=== PATIENT | female | born 1950 | race Caucasian/White ===

== ENCOUNTER 2016-12-17 17:20 | Emergency (ER) | payer MEDICARE ==
[2016-12-17 17:31] VITALS: BP 139/78
[2016-12-17] MEDS ORDERED: Acetaminophen/HYDROcodone 325-5 MG Tab PO ONE (18:09)
--- NOTE | 2016-12-17 18:16 | EDM.PDOC ---
ED HPI GENERAL MEDICAL PROBLEM - General Chief Complaint: Lower Extremity Injury/Pain Stated Complaint: HIP PAIN Time Seen by Provider: 12/17/16 17:50 Source of Information: Reports: Patient History Limitations: Reports: No Limitations - History of Present Illness INITIAL COMMENTS - FREE TEXT/NARRATIVE: Patient presents today with complaints of left hip pain status post fall forward [employer] today. Martha reports she fell forward after slipping on some water on the floor. She denies any other injury or pain today. Onset: Today Duration: Hour(s): Location: Reports: Other (left hip/groin) Quality: Reports: Sharp, Stabbing Severity: Moderate Improves with: Reports: None Worsens with: Reports: Movement - Related Data Allergies Allergy/AdvReac Type Severity Reaction Status Date / Time codeine Allergy Intermediate Rash Verified 12/17/16 17:29 iodine Allergy Intermediate Rash Verified 12/17/16 17:29 Iodinated Contrast- Oral and Allergy Hives Verified 12/17/16 17:29 IV Dye [Iodinated Contrast Media - IV Dye] isosorbide [Isosorbide] AdvReac Cough Verified 12/17/16 17:29 midazolam HCl [From Versed] AdvReac Confusion Verified 12/17/16 17:29 NSAIDS (Non-Steroidal AdvReac Renal Verified 12/17/16 17:29 Anti-Inflamma Failure Home Meds: Home Meds Albuterol Sulfate [Proair Hfa] 2 puff IH QID PRN 04/25/13 [History] Aspirin [Adult Low Dose Aspirin EC] 81 mg PO DAILY 04/25/13 [History] Cholecalciferol (Vitamin D3) [Vitamin D3] 1,000 units PO BID 04/25/13 [History] Gabapentin [Neurontin] 300 mg PO TID 04/25/13 [History] Loratadine [Allergy] 10 mg PO ACBRK PRN 04/25/13 [History] Montelukast [Singulair] 10 mg PO BEDTIME 04/25/13 [History] Polyethylene Glycol 3350 [MiraLAX] 17 gm PO DAILY PRN 04/25/13 [History] metFORMIN [Glucophage] 1,000 mg PO PCBREAKFAST 04/25/13 [History] traZODone 50 mg PO BEDTIME 04/25/13 [History] Citalopram Hydrobromide [Celexa] 40 mg PO BEDTIME 04/08/14 [History] Verapamil [Calan] 20 mg PO TID 10/08/13 [History] Ipratropium/Albuterol Sulfate [Combivent Respimat Inhal [place]] 1 puff IH QID [History] Oxybutynin Chloride 5 mg PO TID 08/18/14 [History] Gabapentin [Neurontin] 600 mg PO BEDTIME 02/02/15 [History] Hydrocodone/Acetaminophen [Hydrocodon-Acetaminophen 5-325] 1 tab PO Q6H PRN 11/12 [History] Pantoprazole [Protonix] 40 mg PO BID 04/22/15 [History] buPROPion HCl [Wellbutrin Xl] 150 mg PO BID 11/09/15 [History] Acetaminophen [Tylenol Arthritis] 650 mg PO Q8H PRN 05/10/16 [History] atorvaSTATin [Lipitor] 10 mg PO BEDTIME 05/10/16 [History] Past Medical History HEENT History: Reports: Cataract, Hard of Hearing, Impaired Vision, Macular Degeneration Other HEENT History: wears glasses Cardiovascular History: Reports: Arrhythmia, High Cholesterol, Hypertension, SOB on Exertion Respiratory History: Reports: Asthma, COPD, SOB Gastrointestinal History: Reports: GERD, Hiatal Hernia Other Gastrointestinal History: Barretts esoph Genitourinary History: Reports: Renal Disease, Urinary Incontinence Other Genitourinary History: stage 3 kidney 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: Musculoskeletal History: Reports: Arthritis, Fracture, Neck Pain, Chronic, Osteoarthritis Neurological History: Reports: Headaches, Chronic Other Neuro History: blood clot in brain 1 year ago resolved on it's own Psychiatric History: Reports: Anxiety, Mood Swings Endocrine/Metabolic History: Reports: Diabetes, Type II, Obesity/BMI 30+, Vitamin D Deficiency Other Endocrine/Metabolic History: BS this am 135 Hematologic History: Reports: Anemia, Blood Transfusion(s) Dermatologic History: Reports: Eczema - Infectious Disease History Infectious Disease History: Reports: Chicken Pox - Past Surgical History Head Surgeries/Procedures: Reports: None HEENT Surgical History: Reports: Cataract Surgery, Eye Surgery Respiratory Surgical History: Reports: None GI Surgical History: Reports: Colonoscopy, EGD, Esophageal Dilatation, Hernia Repair/Other, Doc Fundoplication Female Surgical History: Reports: Section Musculoskeletal Surgical History: Reports: Shoulder Surgery Social & Family History - Family History Family Medical History: Noncontributory - Tobacco Use Smoking Status *Q: Never Smoker Second Hand Smoke Exposure: Yes - Caffeine Use Caffeine Use: Reports: Soda, Tea - Alcohol Use Days Per Week of Alcohol Use: 0 - Recreational Drug Use Recreational Drug Use: No Review of Systems - Review of Systems Review Of Systems: See Below Constitutional: Reports: No Symptoms Eyes: Reports: No Symptoms Ears: Reports: No Symptoms Nose: Reports: No Symptoms Respiratory: Reports: No Symptoms Cardiovascular: Reports: No Symptoms GI/Abdominal: Reports: No Symptoms Genitourinary: Reports: No Symptoms Musculoskeletal: Reports: Joint Pain, Other (left hip pain) Skin: Denies: Cyanosis, Bruising, Rash, Erythema, Wound Neurological: Denies: Confusion, Dizziness, Headache, Syncope, Weakness Psychiatric: Reports: No Symptoms ED EXAM, GENERAL - Physical Exam Exam: See Below Exam Limited By: No Limitations General Appearance: Alert, WD/WN, No Apparent Distress Eye Exam: Bilateral Eye: Normal Inspection, PERRL Ears: Normal External Exam, Normal Canal, Hearing Grossly Normal, Normal TMs Ear Exam: Bilateral Ear: Auricle Normal, Canal Normal, TM normal Nose: Normal Inspection, Normal Mucosa, No Blood Throat/Mouth: Normal Inspection, Normal Lips, Normal Teeth, Normal Gums, Normal Voice, No Airway Compromise Head: Atraumatic, Normocephalic Neck: Normal Inspection, Supple, Non-Tender, Full Range of Motion Respiratory/Chest: No Respiratory Distress, No Accessory Muscle Use, Chest Non- Tender, Decreased Breath Sounds. No: Respiratory Distress, Wheezing Cardiovascular: Normal Peripheral Pulses, Regular Rate, Rhythm, No Edema, No Gallop, No Murmur, No Rub Peripheral Pulses: 2+: Radial (L), Radial (R), Dorsalis Pedis (L), Dorsalis Pedis (R) GI/Abdominal: Normal Bowel Sounds, Soft, Non-Tender, No Organomegaly, No Distention, No Abnormal Bruit, No Mass Back Exam: Normal Inspection, Full Range of Motion. No: CVA Tenderness (R), CVA Tenderness (L) Extremities: No Pedal Edema, Normal Capillary Refill, Other (left hip pain with any movement or rotation. No shortening of left leg. ) Neurological: Alert, Oriented, CN II-XII Intact, Normal Cognition, Normal Gait, No Motor/Sensory Deficits Psychiatric: Normal Affect, Normal Mood Skin Exam: Warm, Dry, Intact, Normal Color, No Rash Lymphatic: No Adenopathy Course - Vital Signs Last Recorded V/S: Last Vital Signs Temp 37.1 C 12/17/16 17:38 Pulse 78 12/17/16 17:38 Resp 20 12/17/16 17:38 BP 139/78 12/17/16 17:38 Pulse Ox 94 L 12/17/16 17:38 - Orders/Labs/Meds Orders: Active Orders 24 hr Category Date Time Status Hip Min 2V or 3V w Pelvis Lt [CR] Stat Exams 12/17/16 18:15 Taken Hip wo Cont Lt [CT] Stat Exams 12/17/16 18:55 Taken Meds: Medications Discontinued Medications Generic Name Dose Route Start Last Admin Trade Name Marisela PRN Reason Stop Dose Admin Hydrocodone Bitart/Acetaminophen 0.5 tab 12/17/16 18:09 12/17/16 18:46 [place] 325-5 Mg PO 12/17/16 18:10 0.5 tab ONETIME ONE Administration - Radiology Interpretation Free Text/Narrative:: No acute findings noted to left hip/pelvis x-ray. Pain continues to be disproportionate to left hip. Attempts to assist patient with bedpan, severe pain with movement. Patient and her family members in agreement with plan. CT Results Date: 12/17/16 CT Results Time: 19:48 (No acute pelvic or left hip fracture. ) - Re-Assessments/Exams Free Text/Narrative Re-Assessment/Exam: 12/17/16 19:48 Patient and family members notified of CT results. Dr. Foster notified of results. Patient reports pain has lessened after use of hydrocodone. We will try to ambulate her with assistance. Free Text/Narrative Re-Assessment/Exam: 12/17/16 19:58 Patient up to ambulate with use of front wheel walker, tolerated well with slight pain. Able to ambulate >100ft. Patient will be discharged to home. Departure - Departure Time of Disposition: 19:59 Disposition: Home, Self-Care 01 Condition: Fair Clinical Impression: Sprain of hip, Contusion of hip - Discharge Information Instructions: Hip Pain Referrals: Kolby Parra MD [Primary Care Provider] - Forms: ED Department Discharge Additional Instructions: You have suffered a sprain/contusion of your left hip. Keep yourself hydrated, rest, use ice/heat as you tolerated to the left hip area. Use hydrocodone 5/325mg, 1/2 pill every 4 to 6 hours as needed for pain. Follow up with your primary care provider in 7 to 14 days for recheck and pain control. You would benefit from use of a front wheel walker. I have provided a prescription for you. - Problem List Review Problem List Initiated/Reviewed/Updated: Yes - My Orders Last 24 Hours: My Active Orders 12/17/16 18:15 Hip Min 2V or 3V w Pelvis Lt [CR] Stat 12/17/16 18:55 Hip wo Cont Lt [CT] Stat - Assessment/Plan Last 24 Hours: My Active Orders 12/17/16 18:15 Hip Min 2V or 3V w Pelvis Lt [CR] Stat 12/17/16 18:55 Hip wo Cont Lt [CT] Stat Assessment:: Left hip sprain, contusion Unsteady gait Plan: Patient will be discharged to home. She is advised to stay hydrated, rest, use ice/heat as tolerated to the left hip area. Use hydrocodone 5/325mg, 1/2 pill every 4 to 6 hours as needed for pain. Follow up with primary care provider in 7 to 14 days for recheck and pain control. She would benefit from use of a front wheel walker (S73.101A, S70.02XA, R 26.81) . Prescription provided.
--- NOTE | 2016-12-18 08:15 | CR ---
Hip Min 2V or 3V w Pelvis Lt HISTORY: left hip pain status post fall forward COMPARISON: 11/17/2015 FINDINGS: No acute fracture or dislocation about the left hip or pelvis is identified. Bony architecture and joint spaces are preserved. No hypertrophic changes are seen. Soft tissues are unremarkable. IMPRESSION: No acute left hip or pelvic abnormality is identified.
== END 2016-12-17 20:30 | disposition home or self-care (01) ==
LOC: JP.ED 17:20
DX: S73.102A Unspecified sprain of left hip, initial encounter (principal); I12.9 Hypertensive chronic kidney disease with stage 1 through stage 4 chronic kidney disease, or unspecified chronic kidney disease; N18.3 Chronic kidney disease, stage 3 (moderate); E78.00 Pure hypercholesterolemia, unspecified; J44.9 Chronic obstructive pulmonary disease, unspecified; E11.9 Type 2 diabetes mellitus without complications; E66.9 Obesity, unspecified; M19.90 Unspecified osteoarthritis, unspecified site; Z79.82 Long term (current) use of aspirin; Z79.899 Other long term (current) drug therapy; Z88.5 Allergy status to narcotic agent; Z88.8 Allergy status to other drugs, medicaments and biological substances; Z98.49 Cataract extraction status, unspecified eye; Z98.890 Other specified postprocedural states; W19.XXXA Unspecified fall, initial encounter
CPT/HCPCS: 73502; 73700; 99284; A9270; 99283

== ENCOUNTER 2017-12-30 06:36 | Day surgery (SDC) | payer MEDICARE ==
[~2017-12-30 06:36] MED LIST: Dextrose 5%-Lactated Ringers 1,000 ML IV SCH; Glycopyrrolate 0.2 MG/ML 2 ML SDV IVPUSH ONE
[2017-12-30] MEDS ORDERED: Propofol 200 MG/20 ML SDV ONE (08:56)
[2017-12-30 10:24] VITALS: BP 132/81
--- NOTE | 2018-01-08 11:00 | OR ---
DATE OF PROCEDURE: 12/30/2017 PREOPERATIVE DIAGNOSIS: History of Neves's esophagus with high-grade dysplasia, status post radiofrequency ablation treatment. POSTOPERATIVE DIAGNOSES: 1. History of Neves's esophagus with high-grade dysplasia, status post radiofrequency ablation treatment. 2. Antral gastritis. OPERATIVE PROCEDURES: Upper GI endoscopy with: 1. Biopsies of esophagogastric junction for histologic evaluation. 2. Biopsies of antrum for CLOtest. ANESTHESIA: IV sedation. INDICATIONS FOR PROCEDURE: This is a 67-year-old status post a series of radiofrequency ablation treatments for Neves's esophagus with high-grade dysplasia. For followup, she is to undergo surveillance endoscopies to rule out any recurrent or persistent Neves's esophagus. Potential risks of the procedure including bleeding and perforation were discussed, and the patient wishes that to proceed. DETAILS OF PROCEDURE: The patient was taken to the operating room and placed in a left lateral decubitus position. IV sedation was administered, after which the upper GI endoscope was passed orally through the length of the esophagus and into the stomach with retroflexion view of the fundus, thereafter through the pyloric channel and into junction of the third and fourth portions of the duodenum. Findings included normal hypopharynx, larynx, upper esophageal junction, and esophageal body. At the EG junction, the patient was noted to have a small hiatal hernia. There was some upward extension of the gastroesophageal junction mucosal line consistent with her history of Neves's esophagus. There was no significant inflammation and no erosions or stricturing or plaque formation, i.e. no signs of progressive neoplastic disease. Within the stomach, there was some mild patchy redness in the antrum. Otherwise, the pyloric channel and visualized portions of the duodenum were unremarkable. At this point, biopsies were obtained from the antrum and sent for CLOtest for H. pylori. Multiple biopsies were obtained from the area of the esophagogastric junction, focusing on the areas of columnar mucosa. Minimal bleeding from the biopsy sites was seen, and the procedure was then concluded. Assuming that today's biopsies did not show any progression of Neves's esophagus, we would recommend a repeat upper endoscopy in one year. We will continue the present medical management with Protonix 40 mg a day. Thanh Garcia MD /[id number]
== END 2017-12-30 11:05 | disposition home or self-care (01) ==
LOC: JP.SDS 06:36
PROVIDERS: ATTEND Surgery
DX: Z09 Encounter for follow-up examination after completed treatment for conditions other than malignant neoplasm (principal); K20.9 Esophagitis, unspecified; K29.70 Gastritis, unspecified, without bleeding; K44.9 Diaphragmatic hernia without obstruction or gangrene; I12.9 Hypertensive chronic kidney disease with stage 1 through stage 4 chronic kidney disease, or unspecified chronic kidney disease; N18.9 Chronic kidney disease, unspecified; J44.9 Chronic obstructive pulmonary disease, unspecified; Z87.19 Personal history of other diseases of the digestive system; Z88.8 Allergy status to other drugs, medicaments and biological substances
CPT/HCPCS: 43239; 87081; 88305; J2704; J7042; J3490

== ENCOUNTER 2019-01-12 09:20 | Observation (INO) | payer MEDICARE ==
[2019-01-12] MEDS ORDERED: Acetaminophen 325 MG Tab PO ONE (09:45)
--- NOTE | 2019-01-12 09:51 | EDM.PDOC ---
ED HPI GENERAL MEDICAL PROBLEM - General Chief Complaint: General Stated Complaint: MEDICAL VIA [facility] Time Seen by Provider: 01/12/19 09:35 Source of Information: Reports: Patient, EMS, Family, Old Records History Limitations: Reports: No Limitations - History of Present Illness INITIAL COMMENTS - FREE TEXT/NARRATIVE: 68 yo female presents to the ER via EMS after a fall at home. There were no significant injuries. States she was light-headed before falling. Has been falling a lot lately and her primary got a walker to help reduce her risk of falling. Lives alone. No recent diarrhea, vomiting, or bleeding. Has chronic lung dz, but does not think her breathing is any worse than normal. Does have more urinary incontinence than usual lately. Was not using her walker when she fell today. Onset: Gradual Duration: Week(s):, Getting Worse Location: Reports: Generalized Quality: Reports: Other (no pain) Severity: Moderate Improves with: Reports: Other (using her walker helps with her falls) Worsens with: Reports: Other (non-compliance with walker use, medical illness) Context: Reports: Other (see HPI) Associated Symptoms: Reports: Shortness of Breath (chronic, stable), Weakness ( generalized). 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: Other (see below) (none) - Related Data Allergies Allergy/AdvReac Type Severity Reaction Status Date / Time codeine Allergy Intermediate Rash Verified 06/09/18 19:25 iodine Allergy Intermediate Rash Verified 06/09/18 19:25 Iodinated Contrast- Oral and Allergy Hives Verified 06/09/18 19:25 IV Dye [Iodinated Contrast Media - IV Dye] isosorbide [Isosorbide] AdvReac Cough Verified 06/09/18 19:25 midazolam HCl [From Versed] AdvReac Confusion Verified 06/09/18 19:25 NSAIDS (Non-Steroidal AdvReac Renal Verified 06/09/18 19:25 Anti-Inflamma Failure Home Meds: Home Meds Albuterol Sulfate [Proair Hfa] 2 puff IH QID PRN 04/25/13 [History] Aspirin [Adult Low Dose Aspirin EC] 81 mg PO DAILY 04/25/13 [History] Cholecalciferol (Vitamin D3) [Vitamin D3] 1,000 units PO BID 04/25/13 [History] Gabapentin [Neurontin] 300 mg PO TID 04/25/13 [History] Loratadine [Allergy] 10 mg PO ACBRK PRN 04/25/13 [History] Montelukast [Singulair] 10 mg PO BEDTIME 04/25/13 [History] Polyethylene Glycol 3350 [MiraLAX] 17 gm PO DAILY PRN 04/25/13 [History] metFORMIN [Glucophage] 1,000 mg PO PCBREAKFAST 04/25/13 [History] traZODone 50 mg PO BEDTIME 04/25/13 [History] Verapamil [Calan] 20 mg PO TID 10/08/13 [History] Ipratropium/Albuterol Sulfate [Combivent Respimat 20-100 Mcg] 1 puff IH DAILY [History] Oxybutynin Chloride 5 mg PO TID 08/18/14 [History] Gabapentin [Neurontin] 600 mg PO BEDTIME 02/02/15 [History] Pantoprazole [Protonix] 40 mg PO BID 04/22/15 [History] Acetaminophen [Tylenol Arthritis] 650 mg PO Q8H PRN 05/10/16 [History] Triamcinolone Acetonide [Triamcinolone Acetonide 0.1% Crm] 1 applic TOP TID [History] Acetaminophen/HYDROcodone [[place] 325-5 MG] 0.5 tab PO Q4H PRN 01/12/19 [History] Citalopram Hydrobromide [Celexa] 40 mg PO DAILY 01/12/19 [History] atorvaSTATin [Lipitor] 10 mg PO BEDTIME 01/12/19 [History] buPROPion HCl [Wellbutrin SR] 150 mg PO BID 01/12/19 [History] Past Medical History HEENT History: Reports: Cataract, Hard of Hearing, Impaired Vision, Macular Degeneration Other HEENT History: wears glasses Cardiovascular History: Reports: Arrhythmia, High Cholesterol, Hypertension, SOB on Exertion Respiratory History: Reports: Asthma, COPD, SOB Gastrointestinal History: Reports: GERD, Hiatal Hernia Other Gastrointestinal History: Barretts esoph Genitourinary History: Reports: Renal Disease, Urinary Incontinence Other Genitourinary History: stage 3 kidney 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: Musculoskeletal History: Reports: Arthritis, Fracture, Neck Pain, Chronic, Osteoarthritis Neurological History: Reports: Headaches, Chronic Other Neuro History: blood clot in brain (2016) resolved on it's own Psychiatric History: Reports: Anxiety, Mood Swings Endocrine/Metabolic History: Reports: Diabetes, Type II, Obesity/BMI 30+, Vitamin D Deficiency Other Endocrine/Metabolic History: BS this am 100 Hematologic History: Reports: Anemia, Blood Transfusion(s) Dermatologic History: Reports: Eczema - Infectious Disease History Infectious Disease History: Reports: Chicken Pox - Past Surgical History Head Surgeries/Procedures: Reports: None HEENT Surgical History: Reports: Cataract Surgery, Eye Surgery Cardiovascular Surgical History: Reports: None Respiratory Surgical History: Reports: None GI Surgical History: Reports: Colonoscopy, EGD, Esophageal Dilatation, Hernia Repair/Other, Doc Fundoplication Female Surgical History: Reports: Section Endocrine Surgical History: Reports: None Neurological Surgical History: Reports: None Musculoskeletal Surgical History: Reports: Shoulder Surgery Dermatological Surgical History: Reports: None Social & Family History - Family History Family Medical History: Noncontributory - Tobacco Use Smoking Status *Q: Never Smoker - Caffeine Use Caffeine Use: Reports: None - Recreational Drug Use Recreational Drug Use: No ED ROS GENERAL - Review of Systems Review Of Systems: See Below Constitutional: Reports: Weakness HEENT: Reports: Other (dry mouth) Respiratory: Reports: Shortness of Breath (chronic, stable) Cardiovascular: Reports: Lightheadedness (worse today) Endocrine: Reports: No Symptoms GI/Abdominal: Reports: No Symptoms : Reports: Incontinence Musculoskeletal: Reports: No Symptoms Skin: Reports: No Symptoms Neurological: Reports: No Symptoms Psychiatric: Reports: No Symptoms ED EXAM, GENERAL - Physical Exam Exam: See Below Exam Limited By: No Limitations General Appearance: Alert, WD/WN, No Apparent Distress, Other (Looks older than her stated age.) Eye Exam: Bilateral Eye: Normal Inspection Ears: Normal External Exam, Normal Canal, Hearing Grossly Normal, Normal TMs Ear Exam: Bilateral Ear: Auricle Normal, Canal Normal, TM normal Nose: Normal Inspection, No Blood Throat/Mouth: Normal Lips, Normal Oropharynx, Normal Voice, No Airway Compromise , Other (dry oral mucosa, edentulous). No: Normal Teeth Head: Atraumatic, Normocephalic Neck: Normal Inspection, Non-Tender Respiratory/Chest: No Respiratory Distress, Lungs Clear, No Accessory Muscle Use , Decreased Breath Sounds Cardiovascular: Regular Rate, Rhythm, No Edema GI/Abdominal: Normal Bowel Sounds, Soft, Non-Tender, No Distention Back Exam: Normal Inspection. No: CVA Tenderness (R), CVA Tenderness (L) Extremities: Normal Inspection, Normal Range of Motion, Non-Tender, No Pedal Edema Neurological: Alert, Oriented, CN II-XII Intact, Normal Cognition, No Motor/ Sensory Deficits Psychiatric: Normal Affect, Normal Mood Skin Exam: Warm, Dry, Intact, Normal Color, No Rash Course - Vital Signs Text/Narrative:: Dr. Cabrera called @ 1232h Last Recorded V/S: Last Vital Signs Temp 38.0 C 01/12/19 10:02 Pulse 98 01/12/19 09:25 Resp 20 01/12/19 09:25 BP 137/60 01/12/19 09:25 Pulse Ox 89 L 01/12/19 09:25 - Orders/Labs/Meds Orders: Active Orders 24 hr Category Date Time Status Azithromycin [Zithromax] Med 01/12/19 12:33 Once 500 mg PO ONETIME ONE Sodium Chloride 0.9% [Normal Saline] 1,000 ml Med 01/12/19 12:00 Active IV ASDIRECTED cefTRIAXone [Rocephin] 1 gm Med 01/12/19 12:33 Ordered Sodium Chloride 0.9% [Normal Saline] 50 ml IV ONETIME Medication Orders Sodium Chloride (Normal Saline) 1,000 mls @ 100 mls/hr IV ASDIRECTED KARINE Last Admin: 01/12/19 11:58 Dose: 100 mls/hr Labs: Laboratory Tests 01/12/19 01/12/19 01/12/19 Range/Units 09:55 09:55 10:28 WBC 17.4 H (4.5-11.0) K/uL RBC 4.29 (3.30-5.50) M/uL Hgb 11.8 L (12.0-15.0) g/dL Hct 37.6 (36.0-48.0) % MCV 88 (80-98) fL MCH 28 (27-31) pg MCHC 31 L (32-36) % Plt Count 390 (150-400) K/uL Sodium 132 L (140-148) mmol/L Potassium 5.2 (3.6-5.2) mmol/L Chloride 96 L (100-108) mmol/L Carbon Dioxide 26 (21-32) mmol/L Anion Gap 15.2 H (5.0-14.0) mmol/L BUN 16 (7-18) mg/dL Creatinine 1.3 H (0.6-1.0) mg/dL Est Cr Clr Drug Dosing 29.75 mL/min Estimated GFR (MDRD) 41 L (>60) Glucose 174 H (74-106) mg/dL Calcium 8.7 (8.5-10.1) mg/dL C-Reactive Protein 1.97 H (0.0-0.3) mg/dL Urine Color Yellow Urine Appearance Slightly cloudy Urine pH 6.0 (4.5-8.0) Ur Specific [place] 1.015 (1.008-1.030) Urine Protein Negative (NEGATIVE) mg/dL Urine Glucose (UA) 250 H (NEGATIVE) mg/dL Urine Ketones Negative (NEGATIVE) mg/dL Urine Occult Blood Moderate (NEGATIVE) Urine Nitrite Negative (NEGATIVE) Urine Bilirubin Negative (NEGATIVE) Urine Urobilinogen Normal (NORMAL) mg/dL Ur Leukocyte Esterase Negative (NEGATIVE) Urine RBC 0-5 (0-5) Urine WBC 0-5 (0-5) Ur Epithelial Cells Few Amorphous Sediment Not seen Urine Bacteria Not seen Urine Mucus Not seen Meds: Medications Generic Name Dose Route Start Last Admin Trade Name Freq PRN Reason Stop Dose Admin Sodium Chloride 1,000 mls @ 100 mls/hr 01/12/19 12:00 01/12/19 11:58 Normal Saline IV 100 mls/hr ASDIRECTED KARINE Administration Discontinued Medications Generic Name Dose Route Start Last Admin Trade Name Freq PRN Reason Stop Dose Admin Acetaminophen 650 mg 01/12/19 09:45 01/12/19 10:02 Tylenol PO 01/12/19 09:46 650 mg NOW ONE Administration Sodium Chloride 1,000 mls @ 1,000 mls/hr 01/12/19 10:17 01/12/19 10:33 Normal Saline IV 01/12/19 11:16 1,000 mls/hr .BOLUS ONE Administration - Radiology Interpretation Free Text/Narrative:: CXR-? RML infiltrate Departure - Departure Time of Disposition: 12:50 Disposition: Refer to Observation Condition: Fair Clinical Impression: Community acquired bacterial pneumonia, Hyponatremia, Fall in elderly patient, Dizziness - Discharge Information *PRESCRIPTION DRUG MONITORING PROGRAM REVIEWED*: No *COPY OF PRESCRIPTION DRUG MONITORING REPORT IN PATIENT QAMAR: No Referrals: Kolby Parra MD [Primary Care Provider] - Forms: ED Department Discharge - My Orders Last 24 Hours: My Active Orders 01/12/19 12:00 Sodium Chloride 0.9% [Normal Saline] 1,000 ml IV ASDIRECTED 01/12/19 12:33 Azithromycin [Zithromax] 500 mg PO ONETIME ONE cefTRIAXone [Rocephin] 1 gm Sodium Chloride 0.9% [Normal Saline] 50 ml IV ONETIME - Assessment/Plan Last 24 Hours: My Active Orders 01/12/19 12:00 Sodium Chloride 0.9% [Normal Saline] 1,000 ml IV ASDIRECTED 01/12/19 12:33 Azithromycin [Zithromax] 500 mg PO ONETIME ONE cefTRIAXone [Rocephin] 1 gm Sodium Chloride 0.9% [Normal Saline] 50 ml IV ONETIME
[2019-01-12] MEDS ORDERED: Sodium Chloride 0.9% 1,000 ML IV ONE (10:17)
[2019-01-12] MEDS: Sodium Chloride 0.9% 1,000 ML IV SCH ×2 (11:58→22:49)
--- NOTE | 2019-01-12 12:05 | CR ---
Chest 2V: 01/12/2019 10:53 AM INDICATION: Fever, elevated white blood cell count COMPARISON: Chest CT performed on 02/15/2015, chest radiograph performed on 08/18/2014. TECHNIQUE: 2 views of the chest were obtained. FINDINGS: Chronic interstitial changes are present. Ill-defined opacity is present in the peripheral aspect of the right midlung, suspicious for infection. No pleural effusions. Cardiomediastinal silhouette is moderately enlarged but stable in size and contour. No acute osseous abnormality. Changes of DISH and moderate multilevel degenerative changes throughout the spine. IMPRESSION: 1. Ill-defined opacity in the right midlung region, likely representing pneumonia. Recommend follow-up to resolution to exclude an underlying neoplastic process. 2. Cardiomegaly and chronic interstitial changes.
[2019-01-12] MEDS ORDERED: cefTRIAXone 1 GM in Sodium Chloride 0.9% 50 ML IV ONE (12:33)
[2019-01-12] MEDS ORDERED: Azithromycin 250 MG Tab PO ONE (12:33)
--- NOTE | 2019-01-12 14:13 | PCM.HP ---
H&P History of Present Illness - General Date of Service: 01/12/19 Admit Problem/Dx: Admission Diagnosis/Problem Admission Diagnosis/Problem Pneumonia Source of Information: Patient, Family, Provider History Limitations: Reports: No Limitations - History of Present Illness Initial Comments - Free Text/Narative: CC: I have never fallen like that before HPI: Martha presented to the ER with weakness after two falls at home this morning. The first fall happened this morning will she was trying to get out of bed. She reports that she slowly slumped down to the floor after she was not able to reach her walker. After a period of time on the floor she was able to get to a standing position after using the walker to steady herself as she stood up. She tried to get from her bedroom to her recliner but had a second fall on the way. Both times she struck her head with the first fall resulting in a very mild bump on the left side of her head and the second fall resulting in a home mild to moderate bump on the side of her head. She does not report a headache. She did not notice any preceding dizziness or lightheadedness. She does feel little more short of breath than usual and has been coughing but has not produced any sputum. She did have a subjective fever at home this morning. Her appetite has been good. Energy had been good up until today. She does have a history of falling but has not fallen in some time. No complaints of dysuria or frequency of urination. No abdominal pain or nausea. No sick contacts, recent travel or new medications. Workup in the emergency room was suggestive of a right middle lobe pneumonia. She has a leukocytosis and C-reactive protein is moderately elevated at 2.3. Creatinine is down at 1.3. She is borderline hypoxic at this time. With her weakness she would benefit from observation admission and physical therapy as well as initiation of antibiotics. - Related Data Allergies/Adverse Reactions: Allergies Allergy/AdvReac Type Severity Reaction Status Date / Time codeine Allergy Intermediate Rash Verified 06/09/18 19:25 iodine Allergy Intermediate Rash Verified 06/09/18 19:25 Iodinated Contrast- Oral and Allergy Hives Verified 06/09/18 19:25 IV Dye [Iodinated Contrast Media - IV Dye] isosorbide [Isosorbide] AdvReac Cough Verified 06/09/18 19:25 midazolam HCl [From Versed] AdvReac Confusion Verified 06/09/18 19:25 NSAIDS (Non-Steroidal AdvReac Renal Verified 06/09/18 19:25 Anti-Inflamma Failure Home Medications: Home Meds Albuterol Sulfate [Proair Hfa] 2 puff IH QID PRN 04/25/13 [History] Aspirin [Adult Low Dose Aspirin EC] 81 mg PO DAILY 04/25/13 [History] Cholecalciferol (Vitamin D3) [Vitamin D3] 1,000 units PO BID 04/25/13 [History] Gabapentin [Neurontin] 300 mg PO TID 04/25/13 [History] Loratadine [Allergy] 10 mg PO ACBRK PRN 04/25/13 [History] Montelukast [Singulair] 10 mg PO BEDTIME 04/25/13 [History] Polyethylene Glycol 3350 [MiraLAX] 17 gm PO DAILY PRN 04/25/13 [History] metFORMIN [Glucophage] 1,000 mg PO PCBREAKFAST 04/25/13 [History] traZODone 50 mg PO BEDTIME 04/25/13 [History] Verapamil [Calan] 20 mg PO TID 10/08/13 [History] Ipratropium/Albuterol Sulfate [Combivent Respimat 20-100 Mcg] 1 puff IH DAILY [History] Oxybutynin Chloride 5 mg PO TID 08/18/14 [History] Gabapentin [Neurontin] 600 mg PO BEDTIME 02/02/15 [History] Pantoprazole [Protonix] 40 mg PO BID 04/22/15 [History] Acetaminophen [Tylenol Arthritis] 650 mg PO Q8H PRN 05/10/16 [History] Triamcinolone Acetonide [Triamcinolone Acetonide 0.1% Crm] 1 applic TOP TID [History] Acetaminophen/HYDROcodone [[place] 325-5 MG] 0.5 tab PO Q4H PRN 01/12/19 [History] Citalopram Hydrobromide [Celexa] 40 mg PO DAILY 01/12/19 [History] atorvaSTATin [Lipitor] 10 mg PO BEDTIME 01/12/19 [History] buPROPion HCl [Wellbutrin SR] 150 mg PO BID 01/12/19 [History] Past Medical History HEENT History: Reports: Cataract, Hard of Hearing, Impaired Vision, Macular Degeneration Other HEENT History: wears glasses Cardiovascular History: Reports: Arrhythmia, High Cholesterol, Hypertension, SOB on Exertion Respiratory History: Reports: Asthma, COPD, SOB Gastrointestinal History: Reports: GERD, Hiatal Hernia Other Gastrointestinal History: Barretts esoph Genitourinary History: Reports: Renal Disease, Urinary Incontinence Other Genitourinary History: stage 3 kidney [employer] History: Reports: Musculoskeletal History: Reports: Arthritis, Fracture, Neck Pain, Chronic, Osteoarthritis Neurological History: Reports: Headaches, Chronic Other Neuro History: blood clot in brain (2016) resolved on it's own Psychiatric History: Reports: Anxiety, Mood Swings Endocrine/Metabolic History: Reports: Diabetes, Type II, Obesity/BMI 30+, Vitamin D Deficiency Other Endocrine/Metabolic History: BS this am 100 Hematologic History: Reports: Anemia, Blood Transfusion(s) Dermatologic History: Reports: Eczema - Infectious Disease History Infectious Disease History: Reports: Chicken Pox - Past Surgical History Head Surgeries/Procedures: Reports: None HEENT Surgical History: Reports: Cataract Surgery, Eye Surgery Cardiovascular Surgical History: Reports: None Respiratory Surgical History: Reports: None GI Surgical History: Reports: Colonoscopy, EGD, Esophageal Dilatation, Hernia Repair/Other, Doc Fundoplication Female Surgical History: Reports: Section Endocrine Surgical History: Reports: None Neurological Surgical History: Reports: None Musculoskeletal Surgical History: Reports: Shoulder Surgery Dermatological Surgical History: Reports: None Social & Family History - Family History Family Medical History: Noncontributory - Tobacco Use Smoking Status *Q: Never Smoker - Caffeine Use Caffeine Use: Reports: None - Alcohol Use Alcohol Use History: No - Recreational Drug Use Recreational Drug Use: No H&P Review of Systems - Review of Systems: Review Of Systems: See Below Free Text/Narrative: A complete 12 point review of systems was obtained. Pertinent positives and negatives are noted in the history of present illness. All other systems were reviewed and were negative except as noted. Exam - Exam Exam: See Below - Vital Signs Vital Signs: Last Vital Signs Temp 38.0 C 01/12/19 10:02 Pulse 68 01/12/19 12:49 Resp 20 01/12/19 09:25 BP 116/51 L 01/12/19 12:49 Pulse Ox 92 L 01/12/19 12:49 Weight: 67.585 kg - Exam Quality Assessment: No: Supplemental Oxygen General: Alert, Oriented, Cooperative. No: Mild Distress HEENT: Conjunctiva Clear, Mucosa Moist & Warm [place]. No: Scleral Icterus Neck: Supple, Trachea Midline. No: Lymphadenopathy Lungs: Normal Respiratory Effort, Crackles (right mid lung posteriorly). No: Wheezing Cardiovascular: Regular Rate, Regular Rhythm GI/Abdominal Exam: Normal Bowel Sounds, Soft, No Distention Extremities: No Pedal Edema. No: Increased Warmth Peripheral Pulses: 2+: Dorsalis Pedis (L), Dorsalis Pedis (R) Skin: Warm, Dry, Ecchymosis (right medial lower leg ) Neuro Extensive - Mental Status: Alert, Oriented x3, Nl Response to Commands Neuro Extensive - Motor, Sensory, Reflexes: No: Dysarthria, Abnormal Motor, Tremor Psychiatric: Alert, Normal Affect - Patient Data Lab Results Last 24 hrs: Laboratory Results - last 24 hr 01/12/19 01/12/19 01/12/19 Range/Units 09:55 09:55 10:28 WBC 17.4 H (4.5-11.0) K/uL RBC 4.29 (3.30-5.50) M/uL Hgb 11.8 L (12.0-15.0) g/dL Hct 37.6 (36.0-48.0) % MCV 88 (80-98) fL MCH 28 (27-31) pg MCHC 31 L (32-36) % Plt Count 390 (150-400) K/uL Sodium 132 L (140-148) mmol/L Potassium 5.2 (3.6-5.2) mmol/L Chloride 96 L (100-108) mmol/L Carbon Dioxide 26 (21-32) mmol/L Anion Gap 15.2 H (5.0-14.0) mmol/L BUN 16 (7-18) mg/dL Creatinine 1.3 H (0.6-1.0) mg/dL Est Cr Clr Drug Dosing 29.75 mL/min Estimated GFR (MDRD) 41 L (>60) Glucose 174 H (74-106) mg/dL Calcium 8.7 (8.5-10.1) mg/dL C-Reactive Protein 1.97 H (0.0-0.3) mg/dL Urine Color Yellow Urine Appearance Slightly cloudy Urine pH 6.0 (4.5-8.0) Ur Specific [place] 1.015 (1.008-1.030) Urine Protein Negative (NEGATIVE) mg/dL Urine Glucose (UA) 250 H (NEGATIVE) mg/dL Urine Ketones Negative (NEGATIVE) mg/dL Urine Occult Blood Moderate (NEGATIVE) Urine Nitrite Negative (NEGATIVE) Urine Bilirubin Negative (NEGATIVE) Urine Urobilinogen Normal (NORMAL) mg/dL Ur Leukocyte Esterase Negative (NEGATIVE) Urine RBC 0-5 (0-5) Urine WBC 0-5 (0-5) Ur Epithelial Cells Few Amorphous Sediment Not seen Urine Bacteria Not seen Urine Mucus Not seen Result Diagrams: 01/12/19 09:55 01/12/19 09:55 Imaging Impressions Last 24 hrs: CXR - images personally reviewed - subtle density right middle lobe. Heart size is normal. No mass or effusion. *Q Meaningful Use (ADM) - VTE Risk Assess *Q Each Risk Factor Represents 1 Point: Obesity ( BMI > 25 kg/m2), Serious lung disease including pneumonia Total Score 1 Point Risk Factors: 2 Each Risk Factor Represents 2 Points: Age 60 - 74 Years Total Score 2 Point Risk Factors: 2 Each Risk Factor Represents 3 Points: None Total Score 3 Point Risk Factors: 0 Each Risk Factor Represents 5 Points: None Total Score 5 Point Risk Factors: 0 Venous Thromboembolism Risk Factor Score *Q: 4 - Problem List (1) Community acquired bacterial pneumonia SNOMED Code(s): 950004151, 265436422 ICD Code: J15.9 - UNSPECIFIED BACTERIAL PNEUMONIA Status: Acute Current Visit: Yes (2) Fall in elderly patient SNOMED Code(s): 946108878 ICD Code: R29.6 - REPEATED FALLS Status: Acute Current Visit: Yes Problem List Initiated/Reviewed/Updated: Yes Orders Last 24hrs: Active Orders 24 hr Category Date Time Status Patient Status Manage Transfer [TRANSFER] Routine ADT 01/12/19 14:03 Ordered Sodium Chloride 0.9% [Normal Saline] 1,000 ml Med 01/12/19 12:00 Active IV ASDIRECTED Resuscitation Status Routine Resus Stat 01/12/19 14:05 Ordered Medication Orders Sodium Chloride (Normal Saline) 1,000 mls @ 100 mls/hr IV ASDIRECTED KARINE Last Admin: 01/12/19 11:58 Dose: 100 mls/hr Assessment/Plan Comment:: ASSESSMENT AND PLAN - Right middle lobe pneumonia - symptoms include cough, shortness of breath and weakness. She does have leukocytosis but no evidence for sepsis. Oxygenation is borderline at this time. With her weakness and 2 falls at home she would benefit from observation. She does have a history of COPD but no evidence for exacerbation. -Ceftriaxone and azithromycin -Supplement oxygen if needed -Symptomatic management of cough -Sputum culture if able Generalized weakness with 2 falls today - No evidence for trauma on examination. No headache or symptoms to suggest injury. Probably related to her infection. -Physical therapy in the morning Essential hypertension - blood pressure acceptable at this time. -Continue home medications Maintenance issues - - DVT prophylaxis - mechanical - GI prophylaxis - continue home PPI - Nutrition - regular diet - Sparks catheter - not indicated CODE STATUS - full code Admission justification - patient will be referred observation status for antibiotic initiation and physical therapy for strengthening Disposition - I would anticipate discharged home with home care after the hospital stay Primary care physician - Dr. Fidel Cabrera M.D.
[2019-01-12] MEDS ORDERED: Ondansetron 4 MG Tab.DIS PO PRN (15:40)
[2019-01-12] MEDS ORDERED: Albuterol 0.083% 2.5 MG/3 ML Neb Soln NEB PRN (15:40)
[2019-01-12] MEDS ORDERED: Acetaminophen/HYDROcodone 325-5 MG Tab PO PRN (15:40)
[2019-01-12] MEDS ORDERED: Magnesium Hydroxide 400 MG/5 ML Susp 30 ML Cup PO PRN (15:40)
[2019-01-12] MEDS ORDERED: Loratadine 10 MG Tab PO PRN (15:40)
[2019-01-12] MEDS ORDERED: guaiFENesin/Dextromethorphan 100-10 MG/5 ML Soln 10 ML Cup PO PRN (15:40)
[2019-01-12] MEDS ORDERED: Acetaminophen 325 MG Tab PO PRN (15:40)
[2019-01-12] MEDS: Gabapentin 300 MG **PTOM PO SCH (20:22)
[2019-01-12] MEDS: OXYBUTYNIN 5 MG PO SCH (20:24)
[2019-01-12] MEDS: BUPROPION 150 MG PO SCH (20:25)
[2019-01-12] MEDS: Pantoprazole 40 MG **PTOM PO SCH (20:26)
[2019-01-12] MEDS: VERAPAMIL 40 MG PO SCH (20:26)
[2019-01-12] MEDS ORDERED: TRAZODONE 50 MG PO SCH (21:00)
[2019-01-12] MEDS ORDERED: atorvaSTATin 10 MG **PTOM PO SCH (21:00)
[2019-01-12] MEDS ORDERED: Montelukast 10 MG Tab PO SCH (21:00)
[2019-01-13] MEDS: Gabapentin 300 MG **PTOM PO SCH ×2 (08:05→13:19)
[2019-01-13] MEDS: OXYBUTYNIN 5 MG PO SCH ×2 (08:07→13:20)
[2019-01-13] MEDS: VERAPAMIL 40 MG PO SCH ×2 (08:08→13:21)
[2019-01-13] MEDS: Pantoprazole 40 MG **PTOM PO SCH (08:08)
[2019-01-13] MEDS: BUPROPION 150 MG PO SCH (08:09)
[2019-01-13] MEDS: Sodium Chloride 0.9% 1,000 ML IV SCH (08:19)
[2019-01-13] MEDS ORDERED: Azithromycin 250 MG Tab PO SCH (09:00)
[2019-01-13] MEDS ORDERED: CITALOPRAM 40 MG PO SCH (09:00)
[2019-01-13] MEDS ORDERED: METFORMIN 1000 MG PO SCH (09:00)
[2019-01-13] MEDS ORDERED: Aspirin 81 MG Tab.EC PO SCH (09:00)
[2019-01-13] MEDS ORDERED: cefTRIAXone 1 GM in Sodium Chloride 0.9% 50 ML IV SCH (10:00)
--- NOTE | 2019-01-13 12:01 | PCM.DCSUM1 ---
Discharge Summary - Hospital Course Brief History: 68-year-old female with history of COPD, well-controlled diabetes mellitus and chronic urge incontinence who presented with weakness and cough. She was admitted for management of right lower lobe pneumonia and weakness. Diagnosis: Stroke: No - Discharge Data Discharge Date: 01/13/19 Discharge Disposition: Home, [facility] Condition: Good - Discharge Diagnosis/Problem(s) (1) Community acquired bacterial pneumonia SNOMED Code(s): 426969419, [id number] ICD Code: J15.9 - UNSPECIFIED BACTERIAL PNEUMONIA Status: Acute Current Visit: Yes (2) Fall in elderly patient SNOMED Code(s): 738757573 ICD Code: R29.6 - REPEATED FALLS Status: Acute Current Visit: Yes - Patient Summary/Data Consults: Consultations 01/13/19 07:00 PT Evaluation and Treatment [CONS] Routine Please Evaluate and Treat. PT Reason for Consult: Strengthening This query below is only for informational purposes and is not editable. Hospital Course: Martha presented to the emergency room with weakness, cough and mild shortness of breath. She had 2 falls at home the morning prior to presentation. Workup in the emergency room revealed leukocytosis and right middle lobe pneumonia. Fortunately she was not hypoxic and did not have evidence for sepsis. Because of her weakness and falls she was admitted for observation and initiation of antibiotics. Overnight following admission there were no acute issues. She did not have any fevers. She did not require supplemental oxygen. Cough is now productive. She is not significantly short of breath. She has been up and moving around with her walker and feels well. She did well with physical therapy this morning. Appetite has been good. She feels well enough to go home at this time. I believe she is stable and safe for outpatient management at this point as well. She will need 3 additional days of antibiotic therapy to complete a total of 5 days. She will continue her previous home care orders. - Patient Instructions Diet: Diabetic Diet Activity: As Tolerated Showering/Bathing: May Shower Notify Provider of: Fever, Increased Pain, Nausea and/or Vomiting Other/Special Instructions: 1. You were in the hospital for management of right middle lobe pneumonia. Your condition has been improving with antibiotic therapy. I recommend additional antibiotic therapy with cefdinir (Omnicef) and azithromycin. You should take cefdinir 300 mg twice daily with food for 3 more days. Your next dose is due tomorrow. You should take azithromycin 500 mg once daily in the mor for 3 more days. Your next dose is due tomorrow morning. Your next dose is due tomorrow morning. 2. Follow up With Dr. Parra next week - follow-up hospital stay for pneumonia and discuss treatment of urinary retention /incontinence. 3. Continue your usual home medications as previously prescribed. 4. Continue your previous home care orders after hospital discharge. 5. Seek medical attention if you have fever greater than 101, severe shortness of breath or if you develop chest pain/pressure - Discharge Plan *PRESCRIPTION DRUG MONITORING PROGRAM REVIEWED*: No *COPY OF PRESCRIPTION DRUG MONITORING REPORT IN PATIENT QAMAR: No Prescriptions/Med Rec: Azithromycin 500 mg PO DAILY #3 tablet Cefdinir 300 mg PO BID #6 capsule Home Medications: Home Meds Albuterol Sulfate [Proair Hfa] 2 puff IH QID PRN 04/25/13 [History] Aspirin [Adult Low Dose Aspirin EC] 81 mg PO DAILY 04/25/13 [History] Cholecalciferol (Vitamin D3) [Vitamin D3] 1,000 units PO BID 04/25/13 [History] Gabapentin [Neurontin] 300 mg PO TID 04/25/13 [History] Loratadine [Allergy] 10 mg PO ACBRK PRN 04/25/13 [History] Montelukast [Singulair] 10 mg PO BEDTIME 04/25/13 [History] Polyethylene Glycol 3350 [MiraLAX] 17 gm PO DAILY PRN 04/25/13 [History] metFORMIN [Glucophage] 1,000 mg PO PCBREAKFAST 04/25/13 [History] traZODone 50 mg PO BEDTIME 04/25/13 [History] Verapamil [Calan] 20 mg PO TID 10/08/13 [History] Ipratropium/Albuterol Sulfate [Combivent Respimat 20-100 Mcg] 1 puff IH DAILY [History] Oxybutynin Chloride 5 mg PO TID 08/18/14 [History] Gabapentin [Neurontin] 600 mg PO BEDTIME 02/02/15 [History] Pantoprazole [ProTONIX] 40 mg PO BID 04/22/15 [History] Acetaminophen [Tylenol Arthritis] 650 mg PO Q8H PRN 05/10/16 [History] Triamcinolone Acetonide [Triamcinolone Acetonide 0.1% Crm] 1 applic TOP TID [History] Acetaminophen/HYDROcodone [[place] 325-5 MG] 0.5 tab PO Q4H PRN 01/12/19 [History] Citalopram Hydrobromide [Celexa] 40 mg PO DAILY 01/12/19 [History] atorvaSTATin [Lipitor] 10 mg PO BEDTIME 01/12/19 [History] buPROPion HCl [Wellbutrin SR] 150 mg PO BID 01/12/19 [History] Azithromycin 500 mg PO DAILY #3 tablet 01/13/19 [Rx] Cefdinir 300 mg PO BID #6 capsule 01/13/19 [Rx] Oxygen Therapy Mode: Room Air Patient Handouts: Cefdinir capsules, Community-Acquired Pneumonia, Adult, Easy- to-Read Referrals: Kolby Parra MD [Primary Care Provider] - 01/21/19 1:30 pm (Please arrive 15 minutes early to register for your appointment.) - Discharge Summary/Plan Comment DC Time >30 min.: No - Patient Data Vitals - Most Recent: Last Vital Signs Temp 36.9 C 01/13/19 11:12 Pulse 74 01/13/19 11:12 Resp 16 01/13/19 11:12 BP 149/64 H 01/13/19 11:12 Pulse Ox 93 L 01/13/19 11:12 Weight - Most Recent: 70.76 kg I&O - Last 24 hours: Intake & Output 01/12/19 01/13/19 01/13/19 22:59 06:59 14:59 Intake Total 100 1575 120 Output Total 550 2250 Balance -450 -675 120 Lab Results - Last 24 hrs: Laboratory Results - last 24 hr 01/13/19 01/13/19 Range/Units 05:38 05:38 WBC 10.1 (4.5-11.0) K/uL RBC 3.68 (3.30-5.50) M/uL Hgb 10.2 L (12.0-15.0) g/dL Hct 32.6 L (36.0-48.0) % MCV 89 (80-98) fL MCH 28 (27-31) pg MCHC 31 L (32-36) % Plt Count 361 (150-400) K/uL Sodium 141 (140-148) mmol/L Potassium 4.5 (3.6-5.2) mmol/L Chloride 108 (100-108) mmol/L Carbon Dioxide 27 (21-32) mmol/L Anion Gap 6.3 (5.0-14.0) mmol/L BUN 15 (7-18) mg/dL Creatinine 1.0 (0.6-1.0) mg/dL Est Cr Clr Drug Dosing 38.68 mL/min Estimated GFR (MDRD) 55 L (>60) Glucose 88 (74-106) mg/dL Calcium 8.2 L (8.5-10.1) mg/dL Med Orders - Current: Current Medications Acetaminophen (Tylenol) 650 mg PO Q4H PRN PRN Reason: Pain (Mild 1-3)/fever Hydrocodone Bitart/Acetaminophen ([place] 325-5 Mg) 0.5 tab PO Q4H PRN PRN Reason: Pain Albuterol (Proventil Neb Soln) 2.5 mg NEB Q4H PRN PRN Reason: Shortness Of Breath/wheezing Aspirin (Halfprin) 81 mg PO DAILY [facility] Last Admin: 01/13/19 08:04 Dose: 81 mg Atorvastatin Calcium (Lipitor) 10 mg PO BEDTIME [facility] Last Admin: 01/12/19 20:22 Dose: 10 mg Azithromycin (Zithromax) 500 mg PO DAILY [facility] Last Admin: 01/13/19 08:10 Dose: 500 mg Bupropion HCl (Wellbutrin Sr) 150 mg PO BID [facility] Last Admin: 01/13/19 08:09 Dose: 150 mg Gabapentin (Neurontin) 300 mg PO TID [facility] Last Admin: 01/13/19 08:05 Dose: 300 mg Guaifenesin/Dextromethorphan (Robitussin Dm) 10 ml PO Q4H PRN PRN Reason: Cough Sodium Chloride (Normal Saline) 1,000 mls @ 100 mls/hr IV ASDIRECTED [facility] Last Admin: 01/13/19 08:19 Dose: 100 mls/hr Ceftriaxone Sodium 1 gm/ (Sodium Chloride) 50 mls @ 100 mls/hr IV Q24H [facility] Last Admin: 01/13/19 11:18 Dose: 100 mls/hr Loratadine (Claritin) 10 mg PO ACBRK PRN PRN Reason: Allergies Magnesium Hydroxide (Milk Of Magnesia) 30 ml PO Q12H PRN PRN Reason: Constipation Montelukast Sodium (Singulair) 10 mg PO BEDTIME [facility] Last Admin: 01/12/19 20:25 Dose: 10 mg Citalopram 40 Mg (Ptom) 0 mg PO DAILY [facility] Last Admin: 01/13/19 08:04 Dose: 40 mg Metformin 1,000 Mg * (*Ptom) 0 mg PO PCBREAKFAST [facility] Last Admin: 01/13/19 08:06 Dose: 1,000 mg Oxybutynin 5 Mg (Ptom) 5 mg PO TID [facility] Last Admin: 01/13/19 08:07 Dose: 5 mg Verapamil 40 Mg (Ptom) 0 mg PO TID [facility] Last Admin: 01/13/19 08:08 Dose: 20 mg Ondansetron HCl (Zofran Odt) 4 mg PO Q6H PRN PRN Reason: Nausea able to take PO Pantoprazole Sodium (Protonix) 40 mg PO BID [facility] Last Admin: 01/13/19 08:08 Dose: 40 mg Senna/Docusate Sodium (Senna Plus) 1 tab PO BID PRN PRN Reason: Constipation Trazodone HCl (Trazodone) 50 mg PO BEDTIME [facility] Last Admin: 01/12/19 20:25 Dose: 50 mg Discontinued Medications Acetaminophen (Tylenol) 650 mg PO NOW ONE Stop: 01/12/19 09:46 Last Admin: 01/12/19 10:02 Dose: 650 mg Azithromycin (Zithromax) 500 mg PO ONETIME ONE Stop: 01/12/19 12:34 Last Admin: 01/12/19 12:52 Dose: 500 mg Sodium Chloride (Normal Saline) 1,000 mls @ 1,000 mls/hr IV .BOLUS ONE Stop: 01/12/19 11:16 Last Admin: 01/12/19 10:33 Dose: 1,000 mls/hr Ceftriaxone Sodium 1 gm/ (Sodium Chloride) 50 mls @ 100 mls/hr IV ONETIME ONE Stop: 01/12/19 13:02 Last Admin: 01/12/19 12:52 Dose: 100 mls/hr Non-Formulary Medication (Ipratropium/Albuterol Sulfate [Combivent Respimat 20- 100 Mcg]) 1 puff IH DAILY [facility]ARINE - Exam Quality Assessment: Denies: Supplemental Oxygen General: Reports: Alert, Oriented, Cooperative, No Acute Distress Lungs: Reports: Clear to Auscultation, Normal Respiratory Effort. Denies: Wheezing Cardiovascular: Reports: Regular Rate, Regular Rhythm GI/Abdominal Exam: Soft, No Distention Extremities: No Pedal Edema Psy/Mental Status: Reports: Alert, Normal Affect
[2019-01-13 15:19] VITALS: BP 133/46; PULSE 72
== END 2019-01-13 16:31 | disposition home health service (06) ==
LOC: JP.ED 09:20 → JP.MS 14:03
PROVIDERS: ADMIT Internal Medicine; ATTEND Internal Medicine
DX: J15.9 Unspecified bacterial pneumonia (principal); I10 Essential (primary) hypertension; E11.9 Type 2 diabetes mellitus without complications; E78.00 Pure hypercholesterolemia, unspecified; J44.9 Chronic obstructive pulmonary disease, unspecified; Z88.5 Allergy status to narcotic agent; Z88.8 Allergy status to other drugs, medicaments and biological substances; Z88.6 Allergy status to analgesic agent; Z91.041 Radiographic dye allergy status; R29.6 Repeated falls; Z79.82 Long term (current) use of aspirin; Z79.84 Long term (current) use of oral hypoglycemic drugs; Z79.899 Other long term (current) drug therapy
CPT/HCPCS: 36415; 51702; 71046; 80048; 81001; 82962; 85027; 86140; 96361; 96365; 96376; 97110; 97161; 97530; 99217; 99218; 99284; 99285; A9270; G0378; J0696; J7030; J7050; 96360

== ENCOUNTER 2019-06-08 06:56 | Inpatient (IN) | payer MEDICARE ==
--- NOTE | 2019-06-08 07:24 | EDM.PDOC ---
ED HPI GENERAL MEDICAL PROBLEM - General Chief Complaint: General Stated Complaint: FELL AT HOME Time Seen by Provider: 06/08/19 07:10 Source of Information: Reports: Patient, EMS, Family History Limitations: Reports: No Limitations - History of Present Illness INITIAL COMMENTS - FREE TEXT/NARRATIVE: 69-year-old female brought in by EMS after developing significant weakness, fever, tremors and having several falls this morning. Her legs were shaking so bad this morning she couldn't bear weight. She does not have any significant pain at this time, she has a moderate cough but no shortness of breath, denies nausea or vomiting, urinary symptoms or rash. She did have a flu and Pneumovax this year. Onset: Unknown/Unsure Associated Symptoms: Reports: Cough, Fever/Chills, Weakness. Denies: Confusion , Chest Pain, Nausea/Vomiting, Shortness of Breath - Related Data Allergies Allergy/AdvReac Type Severity Reaction Status Date / Time codeine Allergy Intermediate Rash Verified 06/08/19 07:05 iodine Allergy Intermediate Rash Verified 06/08/19 07:05 Iodinated Contrast Media Allergy Hives Verified 06/08/19 07:05 [Iodinated Contrast Media - IV Dye] isosorbide [Isosorbide] AdvReac Cough Verified 06/08/19 07:05 midazolam HCl [From Versed] AdvReac Confusion Verified 06/08/19 07:05 NSAIDS (Non-Steroidal AdvReac Renal Verified 06/08/19 07:05 Anti-Inflamma Failure Home Meds: Home Meds Albuterol Sulfate [Proair Hfa] 2 puff IH QID PRN 04/25/13 [History] Aspirin [Adult Low Dose Aspirin EC] 81 mg PO DAILY 04/25/13 [History] Cholecalciferol (Vitamin D3) [Vitamin D3] 1,000 units PO BID 04/25/13 [History] Gabapentin [Neurontin] 300 mg PO TID 04/25/13 [History] Loratadine [Allergy] 10 mg PO ACBRK PRN 04/25/13 [History] Montelukast [Singulair] 10 mg PO BEDTIME 04/25/13 [History] Polyethylene Glycol 3350 [MiraLAX] 17 gm PO DAILY PRN 04/25/13 [History] metFORMIN [Glucophage] 1,000 mg PO PCBREAKFAST 04/25/13 [History] traZODone 50 mg PO BEDTIME 04/25/13 [History] Verapamil [Calan] 20 mg PO TID 10/08/13 [History] Oxybutynin Chloride 5 mg PO TID 08/18/14 [History] Gabapentin [Neurontin] 600 mg PO BEDTIME 02/02/15 [History] Pantoprazole [ProTONIX] 40 mg PO BID 04/22/15 [History] Acetaminophen [Tylenol Arthritis] 650 mg PO Q8H PRN 05/10/16 [History] Triamcinolone Acetonide [Triamcinolone Acetonide 0.1% Crm] 1 applic TOP TID [History] Acetaminophen/HYDROcodone [[place] 325-5 MG] 1 tab PO Q4H PRN 01/12/19 [History] atorvaSTATin [Lipitor] 10 mg PO BEDTIME 01/12/19 [History] buPROPion HCl [Wellbutrin SR] 150 mg PO BID 01/12/19 [History] Past Medical History HEENT History: Reports: Cataract, Hard of Hearing, Impaired Vision, Macular Degeneration Other HEENT History: wears glasses Cardiovascular History: Reports: Arrhythmia, High Cholesterol, Hypertension, SOB on Exertion Respiratory History: Reports: Asthma, COPD, SOB Gastrointestinal History: Reports: GERD, Hiatal Hernia Other Gastrointestinal History: Barretts esoph Genitourinary History: Reports: Renal Disease, Urinary Incontinence Other Genitourinary History: stage 3 kidney 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: Musculoskeletal History: Reports: Arthritis, Fracture, Neck Pain, Chronic, Osteoarthritis Neurological History: Reports: Headaches, Chronic Other Neuro History: blood clot in brain (2016) resolved on it's own Psychiatric History: Reports: Anxiety, Mood Swings Endocrine/Metabolic History: Reports: Diabetes, Type II, Obesity/BMI 30+, Vitamin D Deficiency Other Endocrine/Metabolic History: BS this am 100 Hematologic History: Reports: Anemia, Blood Transfusion(s) Dermatologic History: Reports: Eczema - Infectious Disease History Infectious Disease History: Reports: Chicken Pox - Past Surgical History Head Surgeries/Procedures: Reports: None HEENT Surgical History: Reports: Cataract Surgery, Eye Surgery Cardiovascular Surgical History: Reports: None Respiratory Surgical History: Reports: None GI Surgical History: Reports: Colonoscopy, EGD, Esophageal Dilatation, Hernia Repair/Other, Doc Fundoplication Female Surgical History: Reports: Section Endocrine Surgical History: Reports: None Neurological Surgical History: Reports: None Musculoskeletal Surgical History: Reports: Shoulder Surgery, Other (See Below) Other Musculoskeletal Surgeries/Procedures:: R shoulder surgery Dermatological Surgical History: Reports: None Social & Family History - Family History Family Medical History: Noncontributory - Tobacco Use Smoking Status *Q: Never Smoker Second Hand Smoke Exposure: No - Caffeine Use Caffeine Use: Reports: Soda, Tea - Recreational Drug Use Recreational Drug Use: No ED ROS GENERAL - Review of Systems Review Of Systems: See Below Constitutional: Reports: Fever, Chills, Malaise HEENT: Denies: Rhinitis, Throat Pain Respiratory: Reports: Cough. Denies: Shortness of Breath, Sputum Cardiovascular: Denies: Chest Pain GI/Abdominal: Denies: Abdominal Pain, Nausea, Vomiting Musculoskeletal: Reports: Other (Lower extremities are weak, she did fall onto her left knee but not complaining of significant discomfort) Skin: Denies: Bruising Neurological: Reports: Tremors, Difficulty Walking, Weakness. Denies: Headache , Syncope Psychiatric: Reports: No Symptoms ED EXAM, GENERAL - Physical Exam Exam: See Below Exam Limited By: No Limitations General Appearance: Alert, No Apparent Distress, Other (Fairly comfortable while lying still) Eye Exam: Bilateral Eye: EOMI Head: Atraumatic Neck: Supple, Non-Tender Respiratory/Chest: No Respiratory Distress, Rales (Bilateral rales are heard in the bases, somewhat more pronounced on the left). No: Wheezing Cardiovascular: Regular Rate, Rhythm, Systolic Murmur (Faint systolic murmur is heard). No: Tachycardia GI/Abdominal: Soft, Non-Tender Extremities: Other (Good passive range of motion of the lower extremities, no external findings of trauma such as bruising or asymmetry. No significant palpation tenderness to the knees.) Neurological: Alert, Oriented Psychiatric: Normal Affect, Normal Mood Skin Exam: Warm, Dry Course - Vital Signs Last Recorded V/S: Last Vital Signs Temp 100.5 F 06/08/19 11:50 Pulse 73 06/08/19 10:48 Resp 18 06/08/19 10:21 BP 108/38 L 06/08/19 10:21 Pulse Ox 96 06/08/19 11:09 - Orders/Labs/Meds Orders: Active Orders 24 hr Category Date Time Status CULTURE BLOOD [BC] Urgent Lab 06/08/19 07:27 Received CULTURE BLOOD [BC] Urgent Lab 06/08/19 08:17 Received Blood Culture x2 Reflex Set [OM.PC] Urgent Oth 06/08/19 08:07 Ordered Medication Orders Acetaminophen (Tylenol) 650 mg PO Q4H PRN PRN Reason: Pain (Mild 1-3)/fever Last Admin: 06/08/19 11:50 Dose: 650 mg Hydrocodone Bitart/Acetaminophen ([place] 325-5 Mg) 1 tab PO Q4H PRN PRN Reason: Pain Albuterol (Proventil Neb Soln) 2.5 mg NEB Q4H PRN PRN Reason: Shortness Of Breath/wheezing Albuterol/Ipratropium (Duoneb 3.0-0.5 Mg/3 Ml) 3 ml NEB QIDRT [facility] Last Admin: 06/08/19 10:48 Dose: 3 ml Aspirin (Halfprin) 81 mg PO DAILY [facility] Last Admin: 06/08/19 11:38 Dose: 81 mg Atorvastatin Calcium (Lipitor) 10 mg PO BEDTIME [facility] Bupropion HCl (Wellbutrin Sr) 150 mg PO BID [facility] Last Admin: 06/08/19 11:37 Dose: 150 mg Dextrose (Glutose 15) 15 gm PO ONETIME PRN PRN Reason: Hypoglycemia Dextrose/Water (Dextrose 50% In Water) 50 ml IV ONETIME PRN PRN Reason: Hypoglycemia Enoxaparin Sodium (Lovenox) 30 mg SUBCUT DAILY [facility] Last Admin: 06/08/19 11:37 Dose: 30 mg Gabapentin (Neurontin) 300 mg PO TID [facility] Last Admin: 06/08/19 11:43 Dose: Not Given Gabapentin (Neurontin) 600 mg PO BEDTIME [facility] Azithromycin 500 mg/ Sodium (Chloride) 250 mls @ 250 mls/hr IV Q24H [facility] Sodium Chloride (Normal Saline) 1,000 mls @ 125 mls/hr IV ASDIRECTED [facility] Ampicillin Sodium/Sulbactam (Sodium 1.5 gm/ Sodium Chloride) 50 mls @ 100 mls/ hr IV Q6HR [facility] Last Admin: 06/08/19 11:34 Dose: 100 mls/hr Insulin Human Lispro (Humalog) 0 unit SUBCUT QIDACANDBED [facility]; Protocol Last Admin: 06/08/19 11:45 Dose: Montelukast Sodium (Singulair) 10 mg PO BEDTIME [facility] Ondansetron HCl (Zofran) 4 mg IV Q4H PRN PRN Reason: Nausea/Vomiting Oxybutynin Chloride (Oxybutynin) 5 mg PO TID [facility] Last Admin: 06/08/19 11:37 Dose: 5 mg Pantoprazole Sodium (Protonix) 40 mg PO BIDAC [facility] Last Admin: 06/08/19 11:44 Dose: Not Given Polyethylene Glycol (Miralax) 17 gm PO DAILY PRN PRN Reason: Constipation Sodium Chloride (Saline Flush) 10 ml FLUSH ASDIRECTED PRN PRN Reason: Keep Vein Open Trazodone HCl (Trazodone) 50 mg PO BEDTIME [facility] Triamcinolone Acetonide (Triamcinolone Acetonide 0.1% Crm) 0 gm TOP TID [facility] Last Admin: 06/08/19 11:39 Dose: Verapamil HCl (Calan) 20 mg PO TID [facility] Last Admin: 06/08/19 11:42 Dose: Not Given Labs: Laboratory Tests 06/08/19 06/08/19 06/08/19 Range/Units 07:29 07:29 07:29 WBC 17.0 H (4.5-11.0) K/uL RBC 3.90 (3.30-5.50) M/uL Hgb 11.2 L (12.0-15.0) g/dL Hct 35.6 L (36.0-48.0) % MCV 91 (80-98) fL MCH 29 (27-31) pg MCHC 32 (32-36) % Plt Count 386 (150-400) K/uL Neut % (Auto) 89 H (36-66) % Lymph % (Auto) 3 L (24-44) % [place] % (Auto) 7 H (2-6) % Eos % (Auto) 1 L (2-4) % Baso % (Auto) 0 (0-1) % Sodium 132 L (140-148) mmol/L Potassium 4.8 (3.6-5.2) mmol/L Chloride 97 L (100-108) mmol/L Carbon Dioxide 25 (21-32) mmol/L Anion Gap 14.8 H (5.0-14.0) mmol/L BUN 15 (7-18) mg/dL Creatinine 1.3 H (0.6-1.0) mg/dL Est Cr Clr Drug Dosing 29.34 mL/min Estimated GFR (MDRD) 41 L (>60) Glucose 183 H (74-106) mg/dL Lactic Acid 3.0 H (0.4-2.0) mmol/L Calcium 7.8 L (8.5-10.1) mg/dL Total Bilirubin 0.3 (0.2-1.0) mg/dL AST 19 (15-37) U/L ALT 22 (12-78) U/L Alkaline Phosphatase 102 (46-116) U/L Total Protein 7.6 (6.4-8.2) g/dL Albumin 2.8 L (3.4-5.0) g/dL Globulin 4.8 H (2.3-3.5) g/dL Albumin/Globulin Ratio 0.6 L (1.2-2.2) Urine Color (YELLOW) Urine Appearance (CLEAR) Urine pH (5.0-8.0) Ur Specific [place] (1.008-1.030) Urine Protein (NEGATIVE) mg/dL Urine Glucose (UA) (NEGATIVE) mg/dL Urine Ketones (NEGATIVE) mg/dL Urine Occult Blood (NEGATIVE) Urine Nitrite (NEGATIVE) Urine Bilirubin (NEGATIVE) Urine Urobilinogen (0.2-1.0) EU/dL Ur Leukocyte Esterase (NEGATIVE) Urine RBC (0-5) Urine WBC (0-5) Ur Epithelial Cells Amorphous Sediment Urine Bacteria Urine Mucus Urine Other 06/08/19 Range/Units 07:48 WBC (4.5-11.0) K/uL RBC (3.30-5.50) M/uL Hgb (12.0-15.0) g/dL Hct (36.0-48.0) % MCV (80-98) fL MCH (27-31) pg MCHC (32-36) % Plt Count (150-400) K/uL Neut % (Auto) (36-66) % Lymph % (Auto) (24-44) % [place] % (Auto) (2-6) % Eos % (Auto) (2-4) % Baso % (Auto) (0-1) % Sodium (140-148) mmol/L Potassium (3.6-5.2) mmol/L Chloride (100-108) mmol/L Carbon Dioxide (21-32) mmol/L Anion Gap (5.0-14.0) mmol/L BUN (7-18) mg/dL Creatinine (0.6-1.0) mg/dL Est Cr Clr Drug Dosing mL/min Estimated GFR (MDRD) (>60) Glucose (74-106) mg/dL Lactic Acid (0.4-2.0) mmol/L Calcium (8.5-10.1) mg/dL Total Bilirubin (0.2-1.0) mg/dL AST (15-37) U/L ALT (12-78) U/L Alkaline Phosphatase (46-116) U/L Total Protein (6.4-8.2) g/dL Albumin (3.4-5.0) g/dL Globulin (2.3-3.5) g/dL Albumin/Globulin Ratio (1.2-2.2) Urine Color Yellow (YELLOW) Urine Appearance Clear (CLEAR) Urine pH 5.5 (5.0-8.0) Ur Specific [place] 1.025 (1.008-1.030) Urine Protein Negative (NEGATIVE) mg/dL Urine Glucose (UA) Negative (NEGATIVE) mg/dL Urine Ketones Negative (NEGATIVE) mg/dL Urine Occult Blood Trace-lysed H (NEGATIVE) Urine Nitrite Negative (NEGATIVE) Urine Bilirubin Negative (NEGATIVE) Urine Urobilinogen 0.2 (0.2-1.0) EU/dL Ur Leukocyte Esterase Negative (NEGATIVE) Urine RBC 0-5 (0-5) Urine WBC 0-5 (0-5) Ur Epithelial Cells Few Amorphous Sediment Not seen Urine Bacteria Few Urine Mucus Not seen Urine Other Meds: Medications Generic Name Dose Route Start Last Admin Trade Name Freq PRN Reason Stop Dose Admin Acetaminophen 650 mg 06/08/19 10:11 06/08/19 11:50 Tylenol PO 650 mg Q4H PRN Administration Pain (Mild 1-3)/fever Hydrocodone Bitart/Acetaminophen 1 tab 06/08/19 10:11 [place] 325-5 Mg PO Q4H PRN Pain Albuterol 2.5 mg 06/08/19 10:11 Proventil Neb Soln NEB Q4H PRN Shortness Of Breath/wheezing Albuterol/Ipratropium 3 ml 06/08/19 11:00 06/08/19 10:48 Duoneb 3.0-0.5 Mg/3 Ml NEB 3 ml QIDRT KARINE Administration Aspirin 81 mg 06/08/19 10:11 06/08/19 11:38 Halfprin PO 81 mg DAILY KARINE Administration Atorvastatin Calcium 10 mg 06/08/19 21:00 Lipitor PO BEDTIME KARINE Bupropion HCl 150 mg 06/08/19 10:11 06/08/19 11:37 Wellbutrin Sr PO 150 mg BID KARINE Administration Dextrose 15 gm 06/08/19 10:11 Glutose 15 PO ONETIME PRN Hypoglycemia Dextrose/Water 50 ml 06/08/19 10:11 Dextrose 50% In Water IV ONETIME PRN Hypoglycemia Enoxaparin Sodium 30 mg 06/08/19 10:11 06/08/19 11:37 Lovenox SUBCUT 30 mg DAILY KARINE Administration Gabapentin 300 mg 06/08/19 10:11 06/08/19 11:43 Neurontin PO Not Given TID KARINE Gabapentin 600 mg 06/08/19 21:00 Neurontin PO BEDTIME [facility] Azithromycin 500 mg/ Sodium 250 mls @ 250 mls/hr 06/09/19 09:00 Chloride IV Q24H [facility] Sodium Chloride 1,000 mls @ 125 mls/hr 06/08/19 10:11 Normal Saline IV ASDIRECTED [facility] Ampicillin Sodium/Sulbactam 50 mls @ 100 mls/hr 06/08/19 10:30 06/08/19 11:34 Sodium 1.5 gm/ Sodium Chloride IV 100 mls/hr Q6HR [facility] Administration Insulin Human Lispro 0 unit 06/08/19 11:00 06/08/19 11:45 Humalog SUBCUT Not Given QIDACANDBED [facility] Protocol Montelukast Sodium 10 mg 06/08/19 21:00 Singulair PO BEDTIME [facility] Ondansetron HCl 4 mg 06/08/19 10:11 Zofran IV Q4H PRN Nausea/Vomiting Oxybutynin Chloride 5 mg 06/08/19 10:11 06/08/19 11:37 Oxybutynin PO 5 mg TID KARINE Administration Pantoprazole Sodium 40 mg 06/08/19 10:11 06/08/19 11:44 Protonix PO Not Given BIDAC [facility] Polyethylene Glycol 17 gm 06/08/19 10:11 Miralax PO DAILY PRN Constipation Sodium Chloride 10 ml 06/08/19 10:11 Saline Flush FLUSH ASDIRECTED PRN Keep Vein Open Trazodone HCl 50 mg 06/08/19 21:00 Trazodone PO BEDTIME KARINE Triamcinolone Acetonide 0 gm 06/08/19 10:11 06/08/19 11:39 Triamcinolone Acetonide 0.1% Crm TOP Not Given TID KARINE Verapamil HCl 20 mg 06/08/19 10:11 06/08/19 11:42 Calan PO Not Given TID KARINE Discontinued Medications Generic Name Dose Route Start Last Admin Trade Name Freq PRN Reason Stop Dose Admin Sodium Chloride 1,000 mls @ 500 mls/hr 06/08/19 08:15 06/08/19 08:40 Normal Saline IV 500 mls/hr ASDIRECTED KARINE Administration Azithromycin 500 mg/ Sodium 250 mls @ 250 mls/hr 06/08/19 08:09 06/08/19 09: 18 Chloride IV 06/08/19 09:08 250 mls/hr ONETIME ONE Administration Ceftriaxone Sodium 1 gm/ 50 mls @ 100 mls/hr 06/08/19 08:09 06/08/19 08:41 Sodium Chloride IV 06/08/19 08:38 100 mls/hr ONETIME ONE Administration - Re-Assessments/Exams Free Text/Narrative Re-Assessment/Exam: 06/08/19 07:47 Patient has a temperature of 102.2, suffering from frequent falls and very weak. She was hospitalized for pneumonia earlier this year. A 1 view chest x- ray, CBC, CMP, lactic acid and mini cath UA were ordered. Patient is not hypotensive or tachycardic, does not need aggressive sepsis treatment at this time. 06/08/19 08:10 White count is 17,000, lactic acid mildly elevated at 3.0 and chest x-ray shows likely infiltrates in the left lower lobe. Blood cultures were then obtained and the patient was given 1 g of Rocephin IV along with 500 mg of IV Zithromax. She continued to be borderline hypoxic so O2 was given as well. Normal saline boluses were initiated. 06/08/19 08:25 Chest x-ray confirmed bilateral small infiltrates new since previous study. Departure - Departure Time of Disposition: 10:19 Disposition: Admitted As Inpatient 66 Clinical Impression: Weakness Pneumonia Qualifiers: Aspiration pneumonia type: unspecified Laterality: bilateral Lung location: lower lobe of lung - Discharge Information - My Orders Last 24 Hours: My Active Orders 06/08/19 07:27 CULTURE BLOOD [BC] Urgent 06/08/19 08:07 Blood Culture x2 Reflex Set [OM.PC] Urgent 06/08/19 08:17 CULTURE BLOOD [BC] Urgent - Assessment/Plan Last 24 Hours: My Active Orders 06/08/19 07:27 CULTURE BLOOD [BC] Urgent 06/08/19 08:07 Blood Culture x2 Reflex Set [OM.PC] Urgent 06/08/19 08:17 CULTURE BLOOD [BC] Urgent
--- NOTE | 2019-06-08 08:00 | CRLCR ---
INDICATION: Fever; cough. COMPARISON: Chest radiographs 01/12/2019. TECHNIQUE: Portable AP chest. FINDINGS: Patchy infiltrates both lower lobes; relatively new when compared to the previous study. Mild cardiomegaly. No evidence of CHF. No pneumothorax or pleural effusion. Shoulder arthroplasty on the right. IMPRESSION: Infiltrates both lower lobes. Dictated by Ranjith Vann MD @ Jun 08 2019 7:58AM Signed by Dr. Ranjith Vann @ Jun 08 2019 7:59AM
[2019-06-08] MEDS ORDERED: cefTRIAXone 1 GM in Sodium Chloride 0.9% 50 ML IV ONE (08:09)
[2019-06-08] MEDS ORDERED: Azithromycin 500 MG in Sodium Chloride 0.9% 250 ML IV ONE (08:09)
[2019-06-08] MEDS ORDERED: Sodium Chloride 0.9% 1,000 ML IV SCH (08:15)
--- NOTE | 2019-06-08 08:58 | PCM.HP.2 ---
H&P History of Present Illness - General Date of Service: 06/08/19 Admit Problem/Dx: Admission Diagnosis/Problem Admission Diagnosis/Problem Pneumonia Source of Information: Patient, Family, Provider, RN Notes Reviewed History Limitations: Reports: No Limitations - History of Present Illness Initial Comments - Free Text/Narative: Ms. Lawrence is a 69-year-old woman who was admitted through the emergency department with weakness, fever, and cough, secondary to bilateral pneumonia. She reports that she felt well yesterday but she did have an episode of significant coughing and choking while eating. She reports that this happens on an intermittent basis especially when she is very hungry and brushes when eating. Her granddaughter is present with her today and reports that she also experienced some choking and coughing with eating breakfast here in the emergency department. This morning she was extremely weak and unable to stand, she called for help and was brought into the emergency department by EMS. White blood cell count is elevated and she did have a documented temperature elevation of 102.2. Chest x-ray shows evidence of basilar pneumonia. - Related Data Allergies/Adverse Reactions: Allergies Allergy/AdvReac Type Severity Reaction Status Date / Time codeine Allergy Intermediate Rash Verified 06/08/19 07:05 iodine Allergy Intermediate Rash Verified 06/08/19 07:05 Iodinated Contrast Media Allergy Hives Verified 06/08/19 07:05 [Iodinated Contrast Media - IV Dye] isosorbide [Isosorbide] AdvReac Cough Verified 06/08/19 07:05 midazolam HCl [From Versed] AdvReac Confusion Verified 06/08/19 07:05 NSAIDS (Non-Steroidal AdvReac Renal Verified 06/08/19 07:05 Anti-Inflamma Failure Home Medications: Home Meds Albuterol Sulfate [Proair Hfa] 2 puff IH QID PRN 04/25/13 [History] Aspirin [Adult Low Dose Aspirin EC] 81 mg PO DAILY 04/25/13 [History] Cholecalciferol (Vitamin D3) [Vitamin D3] 1,000 units PO BID 04/25/13 [History] Gabapentin [Neurontin] 300 mg PO TID 04/25/13 [History] Loratadine [Allergy] 10 mg PO ACBRK PRN 04/25/13 [History] Montelukast [Singulair] 10 mg PO BEDTIME 04/25/13 [History] Polyethylene Glycol 3350 [MiraLAX] 17 gm PO DAILY PRN 04/25/13 [History] metFORMIN [Glucophage] 1,000 mg PO PCBREAKFAST 04/25/13 [History] traZODone 50 mg PO BEDTIME 04/25/13 [History] Verapamil [Calan] 20 mg PO TID 10/08/13 [History] Oxybutynin Chloride 5 mg PO TID 08/18/14 [History] Gabapentin [Neurontin] 600 mg PO BEDTIME 02/02/15 [History] Pantoprazole [ProTONIX] 40 mg PO BID 04/22/15 [History] Acetaminophen [Tylenol Arthritis] 650 mg PO Q8H PRN 05/10/16 [History] Triamcinolone Acetonide [Triamcinolone Acetonide 0.1% Crm] 1 applic TOP TID [History] Acetaminophen/HYDROcodone [[place] 325-5 MG] 1 tab PO Q4H PRN 01/12/19 [History] atorvaSTATin [Lipitor] 10 mg PO BEDTIME 01/12/19 [History] buPROPion HCl [Wellbutrin SR] 150 mg PO BID 01/12/19 [History] Past Medical History HEENT History: Reports: Cataract, Hard of Hearing, Impaired Vision, Macular Degeneration Other HEENT History: wears glasses Cardiovascular History: Reports: Arrhythmia, High Cholesterol, Hypertension, SOB on Exertion Respiratory History: Reports: Asthma, COPD, SOB Gastrointestinal History: Reports: GERD, Hiatal Hernia Other Gastrointestinal History: Barretts esoph Genitourinary History: Reports: Renal Disease, Urinary Incontinence Other Genitourinary History: stage 3 kidney [employer]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: Musculoskeletal History: Reports: Arthritis, Fracture, Neck Pain, Chronic, Osteoarthritis Neurological History: Reports: Headaches, Chronic Other Neuro History: blood clot in brain (2016) resolved on it's own Psychiatric History: Reports: Anxiety, Mood Swings Endocrine/Metabolic History: Reports: Diabetes, Type II, Obesity/BMI 30+, Vitamin D Deficiency Other Endocrine/Metabolic History: BS this am 100 Hematologic History: Reports: Anemia, Blood Transfusion(s) Dermatologic History: Reports: Eczema - Infectious Disease History Infectious Disease History: Reports: Chicken Pox - Past Surgical History Head Surgeries/Procedures: Reports: None HEENT Surgical History: Reports: Cataract Surgery, Eye Surgery Cardiovascular Surgical History: Reports: None Respiratory Surgical History: Reports: None GI Surgical History: Reports: Colonoscopy, EGD, Esophageal Dilatation, Hernia Repair/Other, Doc Fundoplication Female Surgical History: Reports: Section Endocrine Surgical History: Reports: None Neurological Surgical History: Reports: None Musculoskeletal Surgical History: Reports: Shoulder Surgery, Other (See Below) Other Musculoskeletal Surgeries/Procedures:: R shoulder surgery Dermatological Surgical History: Reports: None Social & Family History - Family History Family Medical History: Noncontributory - Tobacco Use Smoking Status *Q: Never Smoker Second Hand Smoke Exposure: No - Caffeine Use Caffeine Use: Reports: Soda, Tea - Recreational Drug Use Recreational Drug Use: No H&P Review of Systems - Review of Systems: Review Of Systems: See Below General: Reports: Fever, Chills, Malaise, Weakness HEENT: Reports: No Symptoms Pulmonary: Reports: Cough. Denies: Shortness of Breath, Wheezing, Pleuritic Chest Pain, Sputum, Hemoptysis Cardiovascular: Reports: No Symptoms Gastrointestinal: Reports: Difficulty Swallowing. Denies: Abdominal Pain, Decreased Appetite, Hematemesis, Hematochezia, Melena, Nausea, Vomiting Genitourinary: Reports: No Symptoms Musculoskeletal: Reports: No Symptoms Skin: Reports: No Symptoms Psychiatric: Reports: No Symptoms Neurological: Reports: No Symptoms Hematologic/Lymphatic: Reports: No Symptoms Immunologic: Reports: No Symptoms Exam - Exam Exam: See Below - Vital Signs Vital Signs: Last Vital Signs Temp 102.2 F H 06/08/19 06:57 Pulse 95 06/08/19 06:57 Resp 16 06/08/19 06:57 BP 142/50 H 06/08/19 06:57 Pulse Ox 94 L 06/08/19 06:57 Weight: 149 lb - Exam Quality Assessment: DVT Prophylaxis General: Alert, Oriented, Cooperative, Mild Distress HEENT: Conjunctiva Clear, Hearing Intact, Normal Nasal Septum, Posterior Pharynx Clear, Pupils Equal. No: Mucosa Moist & Tina Neck: Supple, Trachea Midline, +2 Carotid Pulse wo Bruit Lungs: Decreased Breath Sounds, Rhonchi. No: Rales, Rub, Wheezing Cardiovascular: Regular Rate, Regular Rhythm, Normal S1, Normal S2 GI/Abdominal Exam: Soft, Non-Tender, No Organomegaly, No Distention Extremities: Non-Tender, No Pedal Edema Skin: Warm, Dry, Intact Neurological: Cranial Nerves Intact, Strength Equal Bilateral, Normal Speech, Normal Tone, Sensation Intact. No: Focal Deficit Neuro Extensive - Mental Status: Alert, Oriented x3, Normal Mood/Affect, Normal Cognition, Memory Intact - Patient Data Lab Results Last 24 hrs: Laboratory Results - last 24 hr 06/08/19 06/08/19 06/08/19 Range/Units 07:29 07:29 07:29 WBC 17.0 H (4.5-11.0) K/uL RBC 3.90 (3.30-5.50) M/uL Hgb 11.2 L (12.0-15.0) g/dL Hct 35.6 L (36.0-48.0) % MCV 91 (80-98) fL MCH 29 (27-31) pg MCHC 32 (32-36) % Plt Count 386 (150-400) K/uL Neut % (Auto) 89 H (36-66) % Lymph % (Auto) 3 L (24-44) % [place] % (Auto) 7 H (2-6) % Eos % (Auto) 1 L (2-4) % Baso % (Auto) 0 (0-1) % Sodium 132 L (140-148) mmol/L Potassium 4.8 (3.6-5.2) mmol/L Chloride 97 L (100-108) mmol/L Carbon Dioxide 25 (21-32) mmol/L Anion Gap 14.8 H (5.0-14.0) mmol/L BUN 15 (7-18) mg/dL Creatinine 1.3 H (0.6-1.0) mg/dL Est Cr Clr Drug Dosing 29.34 mL/min Estimated GFR (MDRD) 41 L (>60) Glucose 183 H (74-106) mg/dL Lactic Acid 3.0 H (0.4-2.0) mmol/L Calcium 7.8 L (8.5-10.1) mg/dL Total Bilirubin 0.3 (0.2-1.0) mg/dL AST 19 (15-37) U/L ALT 22 (12-78) U/L Alkaline Phosphatase 102 (46-116) U/L Total Protein 7.6 (6.4-8.2) g/dL Albumin 2.8 L (3.4-5.0) g/dL Globulin 4.8 H (2.3-3.5) g/dL Albumin/Globulin Ratio 0.6 L (1.2-2.2) Urine Color (YELLOW) Urine Appearance (CLEAR) Urine pH (5.0-8.0) Ur Specific [place] (1.008-1.030) Urine Protein (NEGATIVE) mg/dL Urine Glucose (UA) (NEGATIVE) mg/dL Urine Ketones (NEGATIVE) mg/dL Urine Occult Blood (NEGATIVE) Urine Nitrite (NEGATIVE) Urine Bilirubin (NEGATIVE) Urine Urobilinogen (0.2-1.0) EU/dL Ur Leukocyte Esterase (NEGATIVE) Urine RBC (0-5) Urine WBC (0-5) Ur Epithelial Cells Amorphous Sediment Urine Bacteria Urine Mucus Urine Other 06/08/19 Range/Units 07:48 WBC (4.5-11.0) K/uL RBC (3.30-5.50) M/uL Hgb (12.0-15.0) g/dL Hct (36.0-48.0) % MCV (80-98) fL MCH (27-31) pg MCHC (32-36) % Plt Count (150-400) K/uL Neut % (Auto) (36-66) % Lymph % (Auto) (24-44) % [place] % (Auto) (2-6) % Eos % (Auto) (2-4) % Baso % (Auto) (0-1) % Sodium (140-148) mmol/L Potassium (3.6-5.2) mmol/L Chloride (100-108) mmol/L Carbon Dioxide (21-32) mmol/L Anion Gap (5.0-14.0) mmol/L BUN (7-18) mg/dL Creatinine (0.6-1.0) mg/dL Est Cr Clr Drug Dosing mL/min Estimated GFR (MDRD) (>60) Glucose (74-106) mg/dL Lactic Acid (0.4-2.0) mmol/L Calcium (8.5-10.1) mg/dL Total Bilirubin (0.2-1.0) mg/dL AST (15-37) U/L ALT (12-78) U/L Alkaline Phosphatase (46-116) U/L Total Protein (6.4-8.2) g/dL Albumin (3.4-5.0) g/dL Globulin (2.3-3.5) g/dL Albumin/Globulin Ratio (1.2-2.2) Urine Color Yellow (YELLOW) Urine Appearance Clear (CLEAR) Urine pH 5.5 (5.0-8.0) Ur Specific [place] 1.025 (1.008-1.030) Urine Protein Negative (NEGATIVE) mg/dL Urine Glucose (UA) Negative (NEGATIVE) mg/dL Urine Ketones Negative (NEGATIVE) mg/dL Urine Occult Blood Trace-lysed H (NEGATIVE) Urine Nitrite Negative (NEGATIVE) Urine Bilirubin Negative (NEGATIVE) Urine Urobilinogen 0.2 (0.2-1.0) EU/dL Ur Leukocyte Esterase Negative (NEGATIVE) Urine RBC 0-5 (0-5) Urine WBC 0-5 (0-5) Ur Epithelial Cells Few Amorphous Sediment Not seen Urine Bacteria Few Urine Mucus Not seen Urine Other Result Diagrams: 06/08/19 07:29 06/08/19 07:29 *Q Meaningful Use (ADM) - VTE Risk Assess *Q Each Risk Factor Represents 1 Point: Obesity ( BMI > 25 kg/m2), Serious lung disease including pneumonia Total Score 1 Point Risk Factors: 2 Each Risk Factor Represents 2 Points: Age 60 - 74 Years Total Score 2 Point Risk Factors: 2 Each Risk Factor Represents 3 Points: None Total Score 3 Point Risk Factors: 0 Each Risk Factor Represents 5 Points: None Total Score 5 Point Risk Factors: 0 Venous Thromboembolism Risk Factor Score *Q: 4 Problem List Initiated/Reviewed/Updated: Yes Orders Last 24hrs: Active Orders 24 hr Category Date Time Status Patient Status Manage Transfer [TRANSFER] Routine ADT 06/08/19 08:48 Ordered CULTURE BLOOD [BC] Urgent Lab 06/08/19 07:27 Received CULTURE BLOOD [BC] Urgent Lab 06/08/19 08:17 Received Azithromycin [Zithromax] 500 mg Med 06/08/19 08:09 Active Sodium Chloride 0.9% [Normal Saline] 250 ml IV ONETIME Sodium Chloride 0.9% [Normal Saline] 1,000 ml Med 06/08/19 08:15 Active IV ASDIRECTED Blood Culture x2 Reflex Set [OM.PC] Urgent Oth 06/08/19 08:07 Ordered Resuscitation Status Routine Resus Stat 06/08/19 08:51 Ordered Medication Orders Sodium Chloride (Normal Saline) 1,000 mls @ 500 mls/hr IV ASDIRECTED KARINE Last Admin: 06/08/19 08:40 Dose: 500 mls/hr Azithromycin 500 mg/ Sodium (Chloride) 250 mls @ 250 mls/hr IV ONETIME ONE Stop: 06/08/19 09:08 Assessment/Plan Comment:: ASSESSMENT AND PLAN ASPIRATION PNEUMONIA-episode of choking and coughing with eating yesterday. Very weak today with fever, leucytosis, and bibasal infiltrates on chest x-ray. -Cultures pending -IV fluids for hydration -IV Unasyn and azithromycin -Speech therapy consult to evaluate for aspiration TYPE 2 DIABETES MELLITUS -Hold metformin -4 times a day glucometers -Low-dose sliding scale Humalog MAINTENANCE ISSUES -DVT prophylaxis; Lovenox 40 mg subcutaneous daily -GI prophylaxis; continue outpatient PPI therapy -Sparks catheter; not indicated -Nutrition; mechanical soft, nectar thickened liquids -Nicotine dependence; not required CODE STATUS-FULL CODE ADMISSION STATUS-patient will be admitted to inpatient status, expect at least a 2 night hospital stay for evaluation and management of problems as outlined above. At the time of this admission I do not reasonably expected evaluation and management of this problem will require more than a 96 hour hospital stay. DISPOSITION-anticipate discharge to home after the hospital stay. PRIMARY CARE PROVIDER- - Mortality Measure Prognosis:: Good
[2019-06-08] MEDS ORDERED: Albuterol 0.083% 2.5 MG/3 ML Neb Soln NEB PRN (10:11)
[2019-06-08] MEDS ORDERED: Sodium Chloride 0.9% 10 ML Syringe FLUSH PRN (10:11)
[2019-06-08] MEDS ORDERED: Ondansetron 4 MG/2 ML SDV IV PRN (10:11)
[2019-06-08] MEDS ORDERED: Polyethylene Glycol 3350 Powder 17 GM Packet PO PRN (10:11)
[2019-06-08] MEDS ORDERED: Glucose Gel 15 GM in 37.5 GM Tube PO PRN (10:11)
[2019-06-08] MEDS ORDERED: 50% Dextrose in Water 50 ML Syringe IV PRN (10:11)
[2019-06-08] MEDS ORDERED: Acetaminophen 325 MG Tab PO PRN (10:11)
[2019-06-08] MEDS ORDERED: Acetaminophen/HYDROcodone 325-5 MG Tab PO PRN ×2 (10:11→13:48)
[2019-06-08] MEDS: Albuterol/Ipratropium 3.0-0.5 MG/3 ML Neb Soln NEB SCH ×3 (10:48→20:01)
[2019-06-08] MEDS: Ampicillin/Sulbactam Na 1.5 GM in Sodium Chloride 0.9% 50 ML IV SCH ×3 (11:34→21:10)
[2019-06-08] MEDS: Gabapentin 300 MG Cap PO SCH ×5 (11:37→20:00)
[2019-06-08] MEDS: Enoxaparin 30 MG/0.3 ML Syringe SUBCUT SCH (11:37)
[2019-06-08] MEDS: Oxybutynin 5 MG Tab PO SCH ×3 (11:37→20:00)
[2019-06-08] MEDS: buPROPion 150 MG Tab.SR PO SCH ×2 (11:37→20:01)
[2019-06-08] MEDS: Aspirin 81 MG Tab.EC PO SCH (11:38)
[2019-06-08] MEDS: Pantoprazole 40 MG Tab.CR PO SCH ×3 (11:38→16:08)
[2019-06-08] MEDS: Triamcinolone Acetonide 0.1% Crm 15 GM Tube TOP SCH ×3 (11:39→20:01)
[2019-06-08] MEDS: Verapamil 80 MG Tab PO SCH ×3 (11:42→20:00)
[2019-06-08] MEDS: Insulin Lispro 100 Unit/ML 3 ML KwikPen SUBCUT SCH ×3 (11:45→19:52)
[2019-06-08] MEDS: Lactobacillus Rhamnosus GG (Probiotic) Cap PO SCH ×2 (15:10→20:00)
[2019-06-08] MEDS: atorvaSTATin 10 MG Tab PO SCH (20:00)
[2019-06-08] MEDS: Montelukast 10 MG Tab PO SCH (20:00)
[2019-06-08] MEDS: traZODone 50 MG Tab PO SCH (20:00)
[2019-06-08] MEDS: Sodium Chloride 0.9% 1,000 ML IV SCH (21:10)
[2019-06-09] MEDS: Ampicillin/Sulbactam Na 1.5 GM in Sodium Chloride 0.9% 50 ML IV SCH ×4 (03:42→21:59)
[2019-06-09] MEDS: Sodium Chloride 0.9% 1,000 ML IV SCH (06:05)
[2019-06-09] MEDS: Albuterol/Ipratropium 3.0-0.5 MG/3 ML Neb Soln NEB SCH ×4 (07:00→21:46)
[2019-06-09] MEDS: Insulin Lispro 100 Unit/ML 3 ML KwikPen SUBCUT SCH ×4 (07:03→21:46)
[2019-06-09] MEDS: Pantoprazole 40 MG Tab.CR PO SCH ×2 (07:21→15:49)
[2019-06-09] MEDS: Lactobacillus Rhamnosus GG (Probiotic) Cap PO SCH ×2 (09:12→21:26)
[2019-06-09] MEDS: Verapamil 80 MG Tab PO SCH ×3 (09:12→21:27)
[2019-06-09] MEDS: Aspirin 81 MG Tab.EC PO SCH (09:13)
[2019-06-09] MEDS: Enoxaparin 30 MG/0.3 ML Syringe SUBCUT SCH (09:13)
[2019-06-09] MEDS: Gabapentin 300 MG Cap PO SCH ×4 (09:13→21:26)
[2019-06-09] MEDS: Triamcinolone Acetonide 0.1% Crm 15 GM Tube TOP SCH ×3 (09:14→21:12)
[2019-06-09] MEDS: Oxybutynin 5 MG Tab PO SCH ×3 (09:14→21:33)
[2019-06-09] MEDS: buPROPion 150 MG Tab.SR PO SCH ×2 (09:16→21:48)
[2019-06-09] MEDS: Azithromycin 500 MG in Sodium Chloride 0.9% 250 ML IV SCH (09:20)
--- NOTE | 2019-06-09 09:41 | PCM.PN ---
- General Info Date of Service: 06/09/19 Subjective Update: Ms. Lawrence has improved since admission yesterday, energy level is better as well as her appetite. She did have temperature elevation after admission but has been afebrile since then. White blood cell count has normalized. She continues to require supplemental oxygen to maintain adequate oxygenation. Functional Status: Reports: Tolerating Diet, Ambulating, Urinating - Review of Systems General: Reports: Weakness. Denies: Fever, Chills Pulmonary: Reports: Shortness of Breath, Cough. Denies: Pleuritic Chest Pain, Sputum, Hemoptysis, Wheezing Cardiovascular: Reports: Dyspnea on Exertion. Denies: Chest Pain, Palpitations , Orthopnea, PND, Edema Gastrointestinal: Reports: No Symptoms - Patient Data Vitals - Most Recent: Last Vital Signs Temp 99.0 F 06/09/19 02:00 Pulse 74 06/09/19 06:00 Resp 18 06/09/19 06:00 BP 119/40 L 06/09/19 02:00 Pulse Ox 96 06/09/19 07:57 Weight - Most Recent: 148 lb I&O - Last 24 Hours: Intake & Output 06/08/19 06/09/19 06/09/19 22:59 06:59 14:59 Intake Total 2163 1597 Output Total 275 650 Balance 1880 947 Lab Results Last 24 Hours: Laboratory Results - last 24 hr 06/08/19 06/09/19 06/09/19 Range/Units 13:54 04:00 04:00 WBC 9.6 (4.5-11.0) K/uL RBC 3.48 (3.30-5.50) M/uL Hgb 10.0 L (12.0-15.0) g/dL Hct 32.2 L (36.0-48.0) % MCV 93 (80-98) fL MCH 29 (27-31) pg MCHC 31 L (32-36) % Plt Count 363 (150-400) K/uL Neut % (Auto) 69 H (36-66) % Lymph % (Auto) 16 L (24-44) % [place] % (Auto) 11 H (2-6) % Eos % (Auto) 3 (2-4) % Baso % (Auto) 1 (0-1) % Sodium 139 L (140-148) mmol/L Potassium 4.4 (3.6-5.2) mmol/L Chloride 106 (100-108) mmol/L Carbon Dioxide 25 (21-32) mmol/L Anion Gap 12.4 (5.0-14.0) mmol/L BUN 15 (7-18) mg/dL Creatinine 1.0 (0.6-1.0) mg/dL Est Cr Clr Drug Dosing 38.14 mL/min Estimated GFR (MDRD) 55 L (>60) Glucose 90 (74-106) mg/dL Lactic Acid 1.6 (0.4-2.0) mmol/L Calcium 7.4 L (8.5-10.1) mg/dL Magnesium 1.9 (1.8-2.4) mg/dL [place] Results Last 24 Hours: Microbiology 06/08/19 08:17 Aerobic Blood Culture - Preliminary Blood - Venous - Iv Start NO GROWTH AFTER 1 DAY Anaerobic Blood Culture - Preliminary NO GROWTH AFTER 1 DAY 06/08/19 07:27 Aerobic Blood Culture - Preliminary Blood - Arm, Left NO GROWTH AFTER 1 DAY Anaerobic Blood Culture - Preliminary NO GROWTH AFTER 1 DAY Med Orders - Current: Current Medications Acetaminophen (Tylenol) 650 mg PO Q4H PRN PRN Reason: Pain (Mild 1-3)/fever Last Admin: 06/08/19 11:50 Dose: 650 mg Hydrocodone Bitart/Acetaminophen ([place] 325-5 Mg) 0.5 tab PO Q4H PRN PRN Reason: Pain Albuterol (Proventil Neb Soln) 2.5 mg NEB Q4H PRN PRN Reason: Shortness Of Breath/wheezing Albuterol/Ipratropium (Duoneb 3.0-0.5 Mg/3 Ml) 3 ml NEB QIDRT [facility] Last Admin: 06/09/19 07:00 Dose: 3 ml Aspirin (Halfprin) 81 mg PO DAILY [facility] Last Admin: 06/09/19 09:13 Dose: 81 mg Atorvastatin Calcium (Lipitor) 10 mg PO BEDTIME [facility] Last Admin: 06/08/19 20:00 Dose: 10 mg Bupropion HCl (Wellbutrin Sr) 150 mg PO BID [facility] Last Admin: 06/09/19 09:16 Dose: 150 mg Dextrose (Glutose 15) 15 gm PO ONETIME PRN PRN Reason: Hypoglycemia Dextrose/Water (Dextrose 50% In Water) 50 ml IV ONETIME PRN PRN Reason: Hypoglycemia Enoxaparin Sodium (Lovenox) 40 mg SUBCUT DAILY [facility] Gabapentin (Neurontin) 300 mg PO TID [facility] Last Admin: 06/09/19 09:13 Dose: 300 mg Gabapentin (Neurontin) 600 mg PO BEDTIME [facility] Last Admin: 06/08/19 20:00 Dose: 600 mg Azithromycin 500 mg/ Sodium (Chloride) 250 mls @ 250 mls/hr IV Q24H [facility] Last Admin: 06/09/19 09:20 Dose: 250 mls/hr Ampicillin Sodium/Sulbactam (Sodium 1.5 gm/ Sodium Chloride) 50 mls @ 100 mls/ hr IV Q6HR [facility] Last Admin: 06/09/19 09:23 Dose: 100 mls/hr Insulin Human Lispro (Humalog) 0 unit SUBCUT QIDACANDBED [facility]; Protocol Last Admin: 06/09/19 07:03 Dose: Not Given Lactobacillus Rhamnosus (Culturelle) 1 cap PO BID [facility] Last Admin: 06/09/19 09:12 Dose: 1 cap Montelukast Sodium (Singulair) 10 mg PO BEDTIME [facility] Last Admin: 06/08/19 20:00 Dose: 10 mg Ondansetron HCl (Zofran) 4 mg IV Q4H PRN PRN Reason: Nausea/Vomiting Oxybutynin Chloride (Oxybutynin) 5 mg PO TID [facility] Last Admin: 06/09/19 09:14 Dose: 5 mg Pantoprazole Sodium (Protonix) 40 mg PO BIDAC [facility] Last Admin: 06/09/19 07:21 Dose: 40 mg Polyethylene Glycol (Miralax) 17 gm PO DAILY PRN PRN Reason: Constipation Sodium Chloride (Saline Flush) 10 ml FLUSH ASDIRECTED PRN PRN Reason: Keep Vein Open Trazodone HCl (Trazodone) 50 mg PO BEDTIME [facility] Last Admin: 06/08/19 20:00 Dose: 50 mg Triamcinolone Acetonide (Triamcinolone Acetonide 0.1% Crm) 0 gm TOP TID [facility] Last Admin: 06/09/19 09:14 Dose: 1 dose Verapamil HCl (Calan) 20 mg PO TID [facility] Last Admin: 06/09/19 09:12 Dose: 20 mg Discontinued Medications Hydrocodone Bitart/Acetaminophen ([place] 325-5 Mg) 1 tab PO Q4H PRN PRN Reason: Pain Enoxaparin Sodium (Lovenox) 30 mg SUBCUT DAILY [facility] Last Admin: 06/09/19 09:13 Dose: 30 mg Sodium Chloride (Normal Saline) 1,000 mls @ 500 mls/hr IV ASDIRECTED [facility] Last Admin: 06/08/19 08:40 Dose: 500 mls/hr Azithromycin 500 mg/ Sodium (Chloride) 250 mls @ 250 mls/hr IV ONETIME ONE Stop: 06/08/19 09:08 Last Admin: 06/08/19 09:18 Dose: 250 mls/hr Ceftriaxone Sodium 1 gm/ (Sodium Chloride) 50 mls @ 100 mls/hr IV ONETIME ONE Stop: 06/08/19 08:38 Last Admin: 06/08/19 08:41 Dose: 100 mls/hr Sodium Chloride (Normal Saline) 1,000 mls @ 125 mls/hr IV ASDIRECTED [facility] Last Admin: 06/09/19 06:05 Dose: 125 mls/hr - Exam Quality Assessment: Supplemental Oxygen, DVT Prophylaxis. No: Central Line/PICC , Urine Catheter General: Alert, Oriented, Cooperative, Mild Distress Lungs: Clear to Auscultation, Normal Respiratory Effort Cardiovascular: Regular Rate, Regular Rhythm, Murmurs GI/Abdominal Exam: Soft, Non-Tender, No Organomegaly, No Distention Extremities: Non-Tender, No Pedal Edema - Problem List Review Problem List Initiated/Reviewed/Updated: Yes - My Orders Last 24 Hours: My Active Orders 06/08/19 08:51 Resuscitation Status Routine 06/08/19 10:11 Patient Status [ADT] Routine Ambulate [RC] QID Blood Glucose Check, Bedside [RC] QIDACANDBED Communication Order [RC] STAT Diabetes Education [RC] Click to Edit Height and Weight [RC] DAILY Intake and Output [RC] QSHIFT Notify Provider Vital Signs [RC] ASDIRECTED Notify Provider [RC] PRN Oxygen Therapy [RC] PRN Pulse Oximetry [RC] CONTINUOUS RT Aerosol Therapy [RC] ASDIRECTED Up With Assistance [RC] ASDIRECTED Up to Chair [RC] QID VTE/DVT Education [RC] Per Unit Routine Vital Signs [RC] Q4H Consult to Speech Language Pathology [PULP GRINDER AND BLENDER Evaluation and Treatment] [CONS] Routine Acetaminophen [Tylenol] 650 mg PO Q4H PRN Albuterol [Proventil Neb Soln] 2.5 mg NEB Q4H PRN Aspirin [Halfprin] 81 mg PO DAILY Dextrose 50% in Water 50 ml IV ONETIME PRN Dextrose [Glutose 15] 15 gm PO ONETIME PRN Gabapentin [Neurontin] 300 mg PO TID Ondansetron [Zofran] 4 mg IV Q4H PRN Oxybutynin 5 mg PO TID Pantoprazole [ProTONIX] 40 mg PO BIDAC Polyethylene Glycol 3350 [MiraLAX] 17 gm PO DAILY PRN Sodium Chloride 0.9% [Saline Flush] 10 ml FLUSH ASDIRECTED PRN Triamcinolone Acetonide [Triamcinolone Acetonide 0.1% Crm] 0 gm TOP TID Verapamil [Calan] 20 mg PO TID buPROPion [Wellbutrin SR] 150 mg PO BID Peripheral IV Insertion Adult [OM.PC] Routine 06/08/19 10:30 Ampicillin/Sulbactam Na [Unasyn] 1.5 gm Sodium Chloride 0.9% [Normal Saline] 50 ml IV Q6HR 06/08/19 11:00 Albuterol/Ipratropium [DuoNeb 3.0-0.5 MG/3 ML] 3 ml NEB QIDRT Insulin Lispro [HumaLOG] See Protocol SUBCUT QIDACANDBED 06/08/19 13:48 Acetaminophen/HYDROcodone [[place] 325-5 MG] 0.5 tab PO Q4H PRN 06/08/19 14:15 Lactobacillus Rhamnosus GG [Culturelle] 1 cap PO BID 06/08/19 14:16 Consult to Physical Therapy [PT Evaluation and Treatment] [CONS] Routine 06/08/19 21:00 Gabapentin [Neurontin] 600 mg PO BEDTIME Montelukast [Singulair] 10 mg PO BEDTIME atorvaSTATin [Lipitor] 10 mg PO BEDTIME traZODone 50 mg PO BEDTIME 06/08/19 Lunch Mechanical Soft Diet [DIET] 06/09/19 09:00 Azithromycin [Zithromax] 500 mg Sodium Chloride 0.9% [Normal Saline] 250 ml IV Q24H 06/09/19 09:36 Convert IV to Saline Lock [OM.PC] Routine 06/10/19 07:30 GLUCOSE POC LAB TO COLLECT [POC] QIDACANDBED 06/10/19 09:00 Enoxaparin [Lovenox] 40 mg SUBCUT DAILY 06/10/19 11:30 GLUCOSE POC LAB TO COLLECT [POC] QIDACANDBED 06/10/19 16:30 GLUCOSE POC LAB TO COLLECT [POC] QIDACANDBED 06/10/19 21:00 GLUCOSE POC LAB TO COLLECT [POC] QIDACANDBED 06/11/19 07:30 GLUCOSE POC LAB TO COLLECT [POC] QIDACANDBED 06/11/19 11:30 GLUCOSE POC LAB TO COLLECT [POC] QIDACANDBED 06/11/19 16:30 GLUCOSE POC LAB TO COLLECT [POC] QIDACANDBED 06/11/19 21:00 GLUCOSE POC LAB TO COLLECT [POC] QIDACANDBED 06/12/19 07:30 GLUCOSE POC LAB TO COLLECT [POC] QIDACANDBED 06/12/19 11:30 GLUCOSE POC LAB TO COLLECT [POC] QIDACANDBED 06/12/19 16:30 GLUCOSE POC LAB TO COLLECT [POC] QIDACANDBED 06/12/19 21:00 GLUCOSE POC LAB TO COLLECT [POC] QIDACANDBED 06/13/19 07:30 GLUCOSE POC LAB TO COLLECT [POC] QIDACANDBED - Plan Plan:: ASSESSMENT AND PLAN ASPIRATION PNEUMONIA-episode of choking and coughing with eating yesterday. She has been afebrile since just after admission with normalization of white blood cell count. Improved energy and appetite. Speech therapy consult showed no obvious evidence of aspiration. -Cultures pending -Saline lock IV -IV Unasyn and azithromycin TYPE 2 DIABETES MELLITUS -Hold metformin -4 times a day glucometers -Low-dose sliding scale Humalog CHRONIC KIDNEY DISEASE STAGE III-renal function has improved with hydration -TU closely monitor urine output MAINTENANCE ISSUES -DVT prophylaxis; Lovenox 40 mg subcutaneous daily -GI prophylaxis; continue outpatient PPI therapy -[place] catheter; not indicated -Nutrition; mechanical soft, nectar thickened liquids -Nicotine dependence; not required CODE STATUS-FULL CODE ADMISSION STATUS-patient will be admitted to inpatient status, expect at least a 2 night hospital stay for evaluation and management of problems as outlined above. At the time of this admission I do not reasonably expected evaluation and management of this problem will require more than a 96 hour hospital stay. DISPOSITION-anticipate discharge to home after the hospital stay. PRIMARY CARE PROVIDER-
[2019-06-09] MEDS: traZODone 50 MG Tab PO SCH (21:33)
[2019-06-09] MEDS: atorvaSTATin 10 MG Tab PO SCH (21:34)
[2019-06-09] MEDS: Montelukast 10 MG Tab PO SCH (21:36)
[2019-06-10] MEDS: Ampicillin/Sulbactam Na 1.5 GM in Sodium Chloride 0.9% 50 ML IV SCH ×2 (04:30→09:05)
[2019-06-10] MEDS: Albuterol/Ipratropium 3.0-0.5 MG/3 ML Neb Soln NEB SCH ×4 (07:22→20:43)
[2019-06-10] MEDS: Insulin Lispro 100 Unit/ML 3 ML KwikPen SUBCUT SCH ×4 (08:28→20:00)
[2019-06-10] MEDS: Verapamil 80 MG Tab PO SCH ×3 (08:29→20:38)
[2019-06-10] MEDS: Pantoprazole 40 MG Tab.CR PO SCH ×2 (08:29→16:19)
[2019-06-10] MEDS: Lactobacillus Rhamnosus GG (Probiotic) Cap PO SCH ×2 (08:30→20:36)
[2019-06-10] MEDS: Aspirin 81 MG Tab.EC PO SCH (08:30)
[2019-06-10] MEDS: Enoxaparin 40 MG/0.4 ML Syringe SUBCUT SCH (08:31)
[2019-06-10] MEDS: Oxybutynin 5 MG Tab PO SCH ×3 (08:31→20:37)
[2019-06-10] MEDS: Gabapentin 300 MG Cap PO SCH ×4 (08:31→20:37)
[2019-06-10] MEDS: buPROPion 150 MG Tab.SR PO SCH ×2 (08:32→20:35)
[2019-06-10] MEDS: Triamcinolone Acetonide 0.1% Crm 15 GM Tube TOP SCH ×3 (08:32→20:35)
[2019-06-10] MEDS: Azithromycin 500 MG in Sodium Chloride 0.9% 250 ML IV SCH (08:33)
--- NOTE | 2019-06-10 10:12 | PCM.PN ---
- General Info Date of Service: 06/10/19 Subjective Update: Ms. Lawrence has been stable since yesterday with good vital signs and no significant temperature elevation. Continues to experience difficulty with eating and obvious episodes of aspiration with choking and coughing. Functional Status: Reports: Ambulating, Urinating - Review of Systems General: Reports: Weakness. Denies: Fever, Chills Pulmonary: Reports: Shortness of Breath, Cough. Denies: Pleuritic Chest Pain, Sputum, Hemoptysis, Wheezing Cardiovascular: Reports: Dyspnea on Exertion. Denies: Chest Pain, Palpitations , Orthopnea, PND, Edema Gastrointestinal: Reports: No Symptoms - Patient Data Vitals - Most Recent: Last Vital Signs Temp 100.0 F 06/10/19 05:31 Pulse 82 06/10/19 07:23 Resp 15 06/10/19 05:31 BP 133/54 L 06/10/19 05:31 Pulse Ox 96 06/10/19 05:31 Weight - Most Recent: 148 lb I&O - Last 24 Hours: Intake & Output 06/09/19 06/10/19 06/10/19 22:59 06:59 14:59 Intake Total 200 Balance 200 [place]ard Results Last 24 Hours: Microbiology 06/08/19 07:27 Aerobic Blood Culture - Preliminary Blood - Arm, Left NO GROWTH AFTER 2 DAYS Anaerobic Blood Culture - Preliminary NO GROWTH AFTER 2 DAYS 06/08/19 08:17 Aerobic Blood Culture - Preliminary Blood - Venous - Iv Start NO GROWTH AFTER 2 DAYS Anaerobic Blood Culture - Preliminary NO GROWTH AFTER 2 DAYS Med Orders - Current: Current Medications Acetaminophen (Tylenol) 650 mg PO Q4H PRN PRN Reason: Pain (Mild 1-3)/fever Last Admin: 06/08/19 11:50 Dose: 650 mg Hydrocodone Bitart/Acetaminophen ([place] 325-5 Mg) 0.5 tab PO Q4H PRN PRN Reason: Pain Albuterol (Proventil Neb Soln) 2.5 mg NEB Q4H PRN PRN Reason: Shortness Of Breath/wheezing Albuterol/Ipratropium (Duoneb 3.0-0.5 Mg/3 Ml) 3 ml NEB QIDRT [facility] Last Admin: 06/10/19 07:22 Dose: 3 ml Aspirin (Halfprin) 81 mg PO DAILY [facility] Last Admin: 06/10/19 08:30 Dose: 81 mg Atorvastatin Calcium (Lipitor) 10 mg PO BEDTIME [facility] Last Admin: 06/09/19 21:34 Dose: 10 mg Bupropion HCl (Wellbutrin Sr) 150 mg PO BID [facility] Last Admin: 06/10/19 08:32 Dose: 150 mg Dextrose (Glutose 15) 15 gm PO ONETIME PRN PRN Reason: Hypoglycemia Dextrose/Water (Dextrose 50% In Water) 50 ml IV ONETIME PRN PRN Reason: Hypoglycemia Enoxaparin Sodium (Lovenox) 40 mg SUBCUT DAILY [facility] Last Admin: 06/10/19 08:31 Dose: 40 mg Gabapentin (Neurontin) 300 mg PO TID [facility] Last Admin: 06/10/19 08:31 Dose: 300 mg Gabapentin (Neurontin) 600 mg PO BEDTIME [facility] Last Admin: 06/09/19 21:26 Dose: 600 mg Insulin Human Lispro (Humalog) 0 unit SUBCUT QIDACANDBED [facility]; Protocol Last Admin: 06/10/19 08:28 Dose: Not Given Lactobacillus Rhamnosus (Culturelle) 1 cap PO BID [facility] Last Admin: 06/10/19 08:30 Dose: 1 cap Montelukast Sodium (Singulair) 10 mg PO BEDTIME [facility] Last Admin: 06/09/19 21:36 Dose: 10 mg Ondansetron HCl (Zofran) 4 mg IV Q4H PRN PRN Reason: Nausea/Vomiting Oxybutynin Chloride (Oxybutynin) 5 mg PO TID [facility] Last Admin: 06/10/19 08:31 Dose: 5 mg Pantoprazole Sodium (Protonix) 40 mg PO BIDAC [facility] Last Admin: 06/10/19 08:29 Dose: 40 mg Polyethylene Glycol (Miralax) 17 gm PO DAILY PRN PRN Reason: Constipation Sodium Chloride (Saline Flush) 10 ml FLUSH ASDIRECTED PRN PRN Reason: Keep Vein Open Trazodone HCl (Trazodone) 50 mg PO BEDTIME [facility] Last Admin: 06/09/19 21:33 Dose: 50 mg Triamcinolone Acetonide (Triamcinolone Acetonide 0.1% Crm) 0 gm TOP TID [facility] Last Admin: 06/10/19 08:32 Dose: Not Given Verapamil HCl (Calan) 20 mg PO TID [facility] Last Admin: 06/10/19 08:29 Dose: 20 mg Discontinued Medications Hydrocodone Bitart/Acetaminophen ([place] 325-5 Mg) 1 tab PO Q4H PRN PRN Reason: Pain Enoxaparin Sodium (Lovenox) 30 mg SUBCUT DAILY [facility] Last Admin: 06/09/19 09:13 Dose: 30 mg Sodium Chloride (Normal Saline) 1,000 mls @ 500 mls/hr IV ASDIRECTED [facility] Last Admin: 06/08/19 08:40 Dose: 500 mls/hr Azithromycin 500 mg/ Sodium (Chloride) 250 mls @ 250 mls/hr IV ONETIME ONE Stop: 06/08/19 09:08 Last Admin: 06/08/19 09:18 Dose: 250 mls/hr Ceftriaxone Sodium 1 gm/ (Sodium Chloride) 50 mls @ 100 mls/hr IV ONETIME ONE Stop: 06/08/19 08:38 Last Admin: 06/08/19 08:41 Dose: 100 mls/hr Azithromycin 500 mg/ Sodium (Chloride) 250 mls @ 250 mls/hr IV Q24H [facility] Last Admin: 06/10/19 08:33 Dose: 250 mls/hr Sodium Chloride (Normal Saline) 1,000 mls @ 125 mls/hr IV ASDIRECTED [facility] Last Admin: 06/09/19 06:05 Dose: 125 mls/hr Ampicillin Sodium/Sulbactam (Sodium 1.5 gm/ Sodium Chloride) 50 mls @ 100 mls/ hr IV Q6HR [facility] Last Admin: 06/10/19 09:05 Dose: 100 mls/hr - Exam Quality Assessment: DVT Prophylaxis. No: Supplemental Oxygen General: Alert, Oriented, Cooperative, Mild Distress Lungs: Clear to Auscultation, Normal Respiratory Effort Cardiovascular: Regular Rate, Regular Rhythm, No Murmurs GI/Abdominal Exam: Soft, Non-Tender, No Organomegaly, No Distention Extremities: Non-Tender, No Pedal Edema Skin: Warm, Dry Sepsis Event Note - Evaluation Sepsis Screening Result: No Definite Risk - Focused Exam Vital Signs: Vital Signs Temp Pulse Resp BP Pulse Ox 06/10/19 07:23 82 06/10/19 05:31 100.0 F 82 15 133/54 L 96 06/10/19 00:28 99.2 F 82 18 128/43 L 96 Date Exam was Performed: 12/11/19 Time Exam was Performed: 10:08 - Problem List Review Problem List Initiated/Reviewed/Updated: Yes - My Orders Last 24 Hours: My Active Orders 06/09/19 09:36 Convert IV to Saline Lock [OM.PC] Routine 06/10/19 09:00 Enoxaparin [Lovenox] 40 mg SUBCUT DAILY 06/10/19 10:01 Swallowing Function w Video [CR] Urgent 06/10/19 10:15 Amoxicillin/Clavulanate K [Augmentin 875 MG/125 MG] 1 tab PO Q12HR 06/10/19 21:00 GLUCOSE POC LAB TO COLLECT [POC] QIDACANDBED 06/11/19 07:30 GLUCOSE POC LAB TO COLLECT [POC] QIDACANDBED 06/11/19 09:00 Azithromycin [Zithromax] 250 mg PO DAILY 06/11/19 11:30 GLUCOSE POC LAB TO COLLECT [POC] QIDACANDBED 06/11/19 16:30 GLUCOSE POC LAB TO COLLECT [POC] QIDACANDBED 06/11/19 21:00 GLUCOSE POC LAB TO COLLECT [POC] QIDACANDBED 06/12/19 07:30 GLUCOSE POC LAB TO COLLECT [POC] QIDACANDBED 06/12/19 11:30 GLUCOSE POC LAB TO COLLECT [POC] QIDACANDBED 06/12/19 16:30 GLUCOSE POC LAB TO COLLECT [POC] QIDACANDBED 06/12/19 21:00 GLUCOSE POC LAB TO COLLECT [POC] QIDACANDBED 06/13/19 07:30 GLUCOSE POC LAB TO COLLECT [POC] QIDACANDBED - Plan Plan:: ASSESSMENT AND PLAN ASPIRATION PNEUMONIA-episode of choking and coughing with eating. She has been afebrile since just after admission with normalization of white blood cell count. Improved energy and appetite. Continues to show evidence of aspiration with eating, unable to get a video swallowing study until early next week. -Cultures pending -Saline lock IV -Discontinue IV Unasyn and azithromycin -Transition to oral azithromycin and Augmentin TYPE 2 DIABETES MELLITUS -Hold metformin -4 times a day glucometers -Low-dose sliding scale Humalog CHRONIC KIDNEY DISEASE STAGE III-renal function has improved with hydration -Continue to closely monitor urine output MAINTENANCE ISSUES -DVT prophylaxis; Lovenox 40 mg subcutaneous daily -GI prophylaxis; continue outpatient PPI therapy -Sparks catheter; not indicated -Nutrition; mechanical soft, nectar thickened liquids -Nicotine dependence; not required CODE STATUS-FULL CODE ADMISSION STATUS-patient will be admitted to inpatient status, expect at least a 2 night hospital stay for evaluation and management of problems as outlined above. At the time of this admission I do not reasonably expected evaluation and management of this problem will require more than a 96 hour hospital stay. DISPOSITION-anticipate discharge to home after the hospital stay. PRIMARY CARE PROVIDER-
[2019-06-10] MEDS: Amoxicillin/Clavulanate K 875-125 MG Tab PO SCH (16:19)
[2019-06-10] MEDS: traZODone 50 MG Tab PO SCH (20:36)
[2019-06-10] MEDS: Montelukast 10 MG Tab PO SCH (20:36)
[2019-06-10] MEDS: atorvaSTATin 10 MG Tab PO SCH (20:38)
[2019-06-11] MEDS: Insulin Lispro 100 Unit/ML 3 ML KwikPen SUBCUT SCH (06:43)
[2019-06-11] MEDS: Albuterol/Ipratropium 3.0-0.5 MG/3 ML Neb Soln NEB SCH (07:27)
[2019-06-11 07:28] VITALS: PULSE 70
[2019-06-11 07:52] VITALS: BP 146/64
[2019-06-11] MEDS: Amoxicillin/Clavulanate K 875-125 MG Tab PO SCH (07:53)
[2019-06-11] MEDS: Pantoprazole 40 MG Tab.CR PO SCH (07:54)
[2019-06-11] MEDS ORDERED: Azithromycin 250 MG Tab PO SCH (09:00)
[2019-06-11] MEDS: Oxybutynin 5 MG Tab PO SCH (09:07)
[2019-06-11] MEDS: Enoxaparin 40 MG/0.4 ML Syringe SUBCUT SCH (09:07)
[2019-06-11] MEDS: Gabapentin 300 MG Cap PO SCH (09:07)
[2019-06-11] MEDS: Lactobacillus Rhamnosus GG (Probiotic) Cap PO SCH (09:07)
[2019-06-11] MEDS: Aspirin 81 MG Tab.EC PO SCH (09:08)
[2019-06-11] MEDS: buPROPion 150 MG Tab.SR PO SCH (09:08)
[2019-06-11] MEDS: Verapamil 80 MG Tab PO SCH (09:08)
[2019-06-11] MEDS: Triamcinolone Acetonide 0.1% Crm 15 GM Tube TOP SCH (09:09)
--- NOTE | 2019-06-11 10:57 | PCM.DCSUM1 ---
Discharge Summary - Hospital Course Brief History: Ms. Lawrence is a 69-year-old woman who was admitted through the emergency department with hypoxia, fever, and leukocytosis secondary to bibasilar pneumonia. - Discharge Data Discharge Date: 06/11/19 Discharge Disposition: Home, W Home Health Agency 06 Condition: Fair - Referral to Home Health Date of Face to Face Encounter: 06/11/19 Reason for Homebound Status: Weakness Primary Care Physician: PCP None Skilled Need: Nursing, PT, OT - Discharge Diagnosis/Problem(s) (1) Pneumonia SNOMED Code(s): 147642919 ICD Code: J18.9 - PNEUMONIA, UNSPECIFIED ORGANISM Status: Acute Current Visit: Yes Qualifiers: Aspiration pneumonia type: unspecified Laterality: bilateral Lung location: lower lobe of lung (2) Weakness SNOMED Code(s): 58035066 ICD Code: R53.1 - WEAKNESS Status: Acute Current Visit: Yes (3) Type 2 diabetes mellitus SNOMED Code(s): 29182397 ICD Code: E11.9 - TYPE 2 DIABETES MELLITUS WITHOUT COMPLICATIONS Status: Chronic Current Visit: No (4) COPD (chronic obstructive pulmonary disease) SNOMED Code(s): 17398060 ICD Code: J44.9 - CHRONIC OBSTRUCTIVE PULMONARY DISEASE, UNSPECIFIED Status : Chronic Current Visit: No (5) CKD (chronic kidney disease) stage 3, GFR 30-59 ml/min SNOMED Code(s): 492536674 ICD Code: N18.3 - CHRONIC KIDNEY DISEASE, STAGE 3 (MODERATE) Status: Chronic Current Visit: No - Patient Summary/Data Consults: Consultations 06/08/19 10:11 Consult to Speech Language Pathology [BIOMEDICAL EQUIPMENT SUPPORT SPECIALIST Evaluation and Treatment] [CONS] Routine Please Evaluate and Treat BIOMEDICAL EQUIPMENT SUPPORT SPECIALIST Reason for Consult: Please evaluate for aspiration This query below is only for informational purposes and is not editable. Admission Diagnosis/Problem: Pneumonia 06/08/19 14:16 Consult to Physical Therapy [PT Evaluation and Treatment] [CONS] Routine Please Evaluate and Treat. PT Reason for Consult: Weakness This query below is only for informational purposes and is not editable. Admission Diagnosis/Problem: Pneumonia Hospital Course: Ms. Lawrence is a 69-year-old woman who was admitted through the emergency department with weakness, fever, and cough, secondary to bilateral pneumonia. She reports that she felt well yesterday but she did have an episode of significant coughing and choking while eating. She reports that this happens on an intermittent basis especially when she is very hungry and rushes when eating. Her granddaughter is present with her today and reports that she also experienced some choking and coughing with eating breakfast here in the emergency department. This morning she was extremely weak and unable to stand, she called for help and was brought into the emergency department by EMS. White blood cell count is elevated and she did have a documented temperature elevation of 102.2. Chest x-ray shows evidence of basilar pneumonia. Cultures were obtained in the emergency department and she was started on IV antibiotic therapy. Blood cultures remain negative throughout her hospital stay. There was concern for possible aspiration so she was given more broad-spectrum antibiotic therapy aimed at bacteria present with aspiration. She was seen and evaluated by speech therapy initially and they saw no evidence of significant aspiration, she continued to show evidence of aspiration during hospitalization. We were unable to obtain a video swallowing study during hospital stay as the radiologist was not available. She was seen by dietary and changes and diet were recommended. She will be scheduled for a video swallowing study on June 15. Prior to discharge she was transitioned oral antibiotic therapy which she tolerated well and was treated with probiotic therapy throughout her hospital stay. Activity will be as tolerated and she will make dietary changes as recommended by the dietitian. Follow-up appointment will be scheduled with Dr. Parra within one week. - Patient Instructions Diet: Usual Diet as Tolerated Activity: As Tolerated Other/Special Instructions: Discharge to home with home care services, including physical therapy and occupational therapy. Schedule follow-up appointment with Dr. Parra within one week. He is scheduled for video swallowing study for June 15. Please schedule follow-up appointment with speech therapy following video study. - Discharge Plan *PRESCRIPTION DRUG MONITORING PROGRAM REVIEWED*: Not Applicable *COPY OF PRESCRIPTION DRUG MONITORING REPORT IN PATIENT QAMAR: Not Applicable Prescriptions/Med Rec: Amoxicillin/Clavulanate K [Augmentin 875-125 MG] 1 tab PO BIDMEALS #8 tablet Lactobacillus Rhamnosus GG [Culturelle] 1 cap PO BID #60 cap Home Medications: Home Meds Albuterol Sulfate [Proair Hfa] 2 puff IH QID PRN 04/25/13 [History] Aspirin [Adult Low Dose Aspirin EC] 81 mg PO DAILY 04/25/13 [History] Cholecalciferol (Vitamin D3) [Vitamin D3] 1,000 units PO BID 04/25/13 [History] Gabapentin [Neurontin] 300 mg PO TID 04/25/13 [History] Loratadine [Allergy] 10 mg PO ACBRK PRN 04/25/13 [History] Montelukast [Singulair] 10 mg PO BEDTIME 04/25/13 [History] Polyethylene Glycol 3350 [MiraLAX] 17 gm PO DAILY PRN 04/25/13 [History] metFORMIN [Glucophage] 1,000 mg PO PCBREAKFAST 04/25/13 [History] traZODone 50 mg PO BEDTIME 04/25/13 [History] Verapamil [Calan] 20 mg PO TID 10/08/13 [History] Oxybutynin Chloride 5 mg PO TID 08/18/14 [History] Gabapentin [Neurontin] 600 mg PO BEDTIME 02/02/15 [History] Pantoprazole [ProTONIX] 40 mg PO BID 04/22/15 [History] Acetaminophen [Tylenol Arthritis] 650 mg PO Q8H PRN 05/10/16 [History] Triamcinolone Acetonide [Triamcinolone Acetonide 0.1% Crm] 1 applic TOP TID [History] Acetaminophen/HYDROcodone [[place] 325-5 MG] 1 tab PO Q4H PRN 01/12/19 [History] atorvaSTATin [Lipitor] 10 mg PO BEDTIME 01/12/19 [History] buPROPion HCl [Wellbutrin SR] 150 mg PO BID 01/12/19 [History] Amoxicillin/Clavulanate K [Augmentin 875-125 MG] 1 tab PO BIDMEALS #8 tablet 06/18 [Rx] Lactobacillus Rhamnosus GG [Culturelle] 1 cap PO BID #60 cap 06/11/19 [Rx] Referrals: Kolby Parra MD [Physician] - 06/18/19 1:30 pm (Please arrive 15 minutes early to register for your appointment.) - Discharge Summary/Plan Comment DC Time >30 min.: No - Patient Data Vitals - Most Recent: Last Vital Signs Temp 99 F 06/11/19 07:00 Pulse 70 06/11/19 07:27 Resp 18 06/11/19 07:00 BP 146/64 H 06/11/19 07:00 Pulse Ox 89 L 06/11/19 07:58 Weight - Most Recent: 148 lb I&O - Last 24 hours: Intake & Output 06/10/19 06/11/19 06/11/19 22:59 06:59 14:59 Intake Total 1100 Balance 1100 JOHN Results - Last 24 hrs: Microbiology 06/08/19 07:27 Aerobic Blood Culture - Preliminary Blood - Arm, Left NO GROWTH AFTER 3 DAYS Anaerobic Blood Culture - Preliminary NO GROWTH AFTER 3 DAYS 06/08/19 08:17 Aerobic Blood Culture - Preliminary Blood - Venous - Iv Start NO GROWTH AFTER 3 DAYS Anaerobic Blood Culture - Preliminary NO GROWTH AFTER 3 DAYS Med Orders - Current: Current Medications Acetaminophen (Tylenol) 650 mg PO Q4H PRN PRN Reason: Pain (Mild 1-3)/fever Last Admin: 06/08/19 11:50 Dose: 650 mg Hydrocodone Bitart/Acetaminophen ([place] 325-5 Mg) 0.5 tab PO Q4H PRN PRN Reason: Pain Albuterol (Proventil Neb Soln) 2.5 mg NEB Q4H PRN PRN Reason: Shortness Of Breath/wheezing Albuterol/Ipratropium (Duoneb 3.0-0.5 Mg/3 Ml) 3 ml NEB QIDRT [facility] Last Admin: 06/11/19 07:27 Dose: 3 ml Amoxicillin/Clavulanate Potassium (Augmentin 875 Mg/125 Mg) 1 tab PO BIDMEALS [facility] Last Admin: 06/11/19 07:53 Dose: 1 tab Aspirin (Halfprin) 81 mg PO DAILY [facility] Last Admin: 06/11/19 09:08 Dose: 81 mg Atorvastatin Calcium (Lipitor) 10 mg PO BEDTIME [facility] Last Admin: 06/10/19 20:38 Dose: 10 mg Azithromycin (Zithromax) 250 mg PO DAILY [facility] Last Admin: 06/11/19 09:13 Dose: 250 mg Bupropion HCl (Wellbutrin Sr) 150 mg PO BID [facility] Last Admin: 06/11/19 09:08 Dose: 150 mg Dextrose (Glutose 15) 15 gm PO ONETIME PRN PRN Reason: Hypoglycemia Dextrose/Water (Dextrose 50% In Water) 50 ml IV ONETIME PRN PRN Reason: Hypoglycemia Enoxaparin Sodium (Lovenox) 40 mg SUBCUT DAILY [facility] Last Admin: 06/11/19 09:07 Dose: 40 mg Gabapentin (Neurontin) 300 mg PO TID [facility] Last Admin: 06/11/19 09:07 Dose: 300 mg Gabapentin (Neurontin) 600 mg PO BEDTIME [facility] Last Admin: 06/10/19 20:36 Dose: 600 mg Insulin Human Lispro (Humalog) 0 unit SUBCUT QIDACANDBED [facility]; Protocol Last Admin: 06/11/19 06:43 Dose: Not Given Lactobacillus Rhamnosus (Culturelle) 1 cap PO BID [facility] Last Admin: 06/11/19 09:07 Dose: 1 cap Montelukast Sodium (Singulair) 10 mg PO BEDTIME [facility] Last Admin: 06/10/19 20:36 Dose: 10 mg Ondansetron HCl (Zofran) 4 mg IV Q4H PRN PRN Reason: Nausea/Vomiting Oxybutynin Chloride (Oxybutynin) 5 mg PO TID [facility] Last Admin: 06/11/19 09:07 Dose: 5 mg Pantoprazole Sodium (Protonix) 40 mg PO BIDAC [facility] Last Admin: 06/11/19 07:54 Dose: 40 mg Polyethylene Glycol (Miralax) 17 gm PO DAILY PRN PRN Reason: Constipation Sodium Chloride (Saline Flush) 10 ml FLUSH ASDIRECTED PRN PRN Reason: Keep Vein Open Trazodone HCl (Trazodone) 50 mg PO BEDTIME [facility] Last Admin: 06/10/19 20:36 Dose: 50 mg Triamcinolone Acetonide (Triamcinolone Acetonide 0.1% Crm) 0 gm TOP TID [facility] Last Admin: 06/11/19 09:09 Dose: Not Given Verapamil HCl (Calan) 20 mg PO TID [facility] Last Admin: 06/11/19 09:08 Dose: 20 mg Discontinued Medications Hydrocodone Bitart/Acetaminophen ([place] 325-5 Mg) 1 tab PO Q4H PRN PRN Reason: Pain Enoxaparin Sodium (Lovenox) 30 mg SUBCUT DAILY [facility] Last Admin: 06/09/19 09:13 Dose: 30 mg Sodium Chloride (Normal Saline) 1,000 mls @ 500 mls/hr IV ASDIRECTED [facility] Last Admin: 06/08/19 08:40 Dose: 500 mls/hr Azithromycin 500 mg/ Sodium (Chloride) 250 mls @ 250 mls/hr IV ONETIME ONE Stop: 06/08/19 09:08 Last Admin: 06/08/19 09:18 Dose: 250 mls/hr Ceftriaxone Sodium 1 gm/ (Sodium Chloride) 50 mls @ 100 mls/hr IV ONETIME ONE Stop: 06/08/19 08:38 Last Admin: 06/08/19 08:41 Dose: 100 mls/hr Azithromycin 500 mg/ Sodium (Chloride) 250 mls @ 250 mls/hr IV Q24H [facility] Last Admin: 06/10/19 08:33 Dose: 250 mls/hr Sodium Chloride (Normal Saline) 1,000 mls @ 125 mls/hr IV ASDIRECTED [facility] Last Admin: 06/09/19 06:05 Dose: 125 mls/hr Ampicillin Sodium/Sulbactam (Sodium 1.5 gm/ Sodium Chloride) 50 mls @ 100 mls/ hr IV Q6HR [facility] Last Admin: 06/10/19 09:05 Dose: 100 mls/hr - Exam General: Reports: Alert, Oriented, Cooperative, No Acute Distress Lungs: Reports: Clear to Auscultation, Normal Respiratory Effort Cardiovascular: Reports: Regular Rate, Regular Rhythm, No Murmurs GI/Abdominal Exam: Soft, Non-Tender, No Organomegaly, No Distention
== END 2019-06-11 11:35 | disposition home health service (06) | DRG 179 ==
LOC: JP.ED 06:56 → JP.ICU 08:48
PROVIDERS: ADMIT Hospitalist; ATTEND Hospitalist
DX: J18.1 Lobar pneumonia, unspecified organism (principal); J69.0 Pneumonitis due to inhalation of food and vomit; J44.9 Chronic obstructive pulmonary disease, unspecified; I12.9 Hypertensive chronic kidney disease with stage 1 through stage 4 chronic kidney disease, or unspecified chronic kidney disease; N18.3 Chronic kidney disease, stage 3 (moderate); H54.7 Unspecified visual loss; H35.30 Unspecified macular degeneration; H91.90 Unspecified hearing loss, unspecified ear; E78.00 Pure hypercholesterolemia, unspecified; E11.22 Type 2 diabetes mellitus with diabetic chronic kidney disease; K21.9 Gastro-esophageal reflux disease without esophagitis; K44.9 Diaphragmatic hernia without obstruction or gangrene; K22.70 Barrett's esophagus without dysplasia; R32 Unspecified urinary incontinence; M19.90 Unspecified osteoarthritis, unspecified site; G89.29 Other chronic pain; R29.6 Repeated falls; M54.2 Cervicalgia; F41.9 Anxiety disorder, unspecified; E66.9 Obesity, unspecified; E55.9 Vitamin D deficiency, unspecified; D64.9 Anemia, unspecified; Z98.49 Cataract extraction status, unspecified eye; Z98.890 Other specified postprocedural states; Z88.8 Allergy status to other drugs, medicaments and biological substances; Z79.82 Long term (current) use of aspirin; Z79.84 Long term (current) use of oral hypoglycemic drugs; Z79.899 Other long term (current) drug therapy; Z88.5 Allergy status to narcotic agent; Z91.041 Radiographic dye allergy status; Z88.6 Allergy status to analgesic agent; Z68.33 Body mass index [BMI] 33.0-33.9, adult
CPT/HCPCS: 36415; 71045; 80053; 81001; 83605; 85025; 87040 ×2; 96365; 99285; J0696; J7030; J7050; 80048; 82962; 83735; 92610-GN; 94640; 94762; 96367; 97110-GP; 97162-GP; 97530-GP; 99283; A9270-GY; J0287; J0456; J1650; J1815; J7620-GY

== ENCOUNTER 2020-07-26 15:01 | Emergency (ER) | payer MEDICARE ==
[2020-07-26 15:21] VITALS: BP 118/55; PULSE 92
--- NOTE | 2020-07-26 15:44 | EDM.PDOC ---
ED HPI GENERAL MEDICAL PROBLEM - General Chief Complaint: General Stated Complaint: FELL AT HOME, HIT LEFT SIDE Time Seen by Provider: 07/26/20 15:25 Source of Information: Reports: Patient History Limitations: Reports: No Limitations - History of Present Illness INITIAL COMMENTS - FREE TEXT/NARRATIVE: 70-year-old female who earlier today stumbled and bumped her left abdominal wall on the edge of some furniture. She now has a sore lump that she wants checked. No intra-abdominal pain, shortness of breath or chest wall pain. Onset: Sudden Duration: Hour(s): (5 hours ago) Location: Reports: Abdomen Associated Symptoms: Reports: No Other Symptoms - Related Data Allergies Allergy/AdvReac Type Severity Reaction Status Date / Time codeine Allergy Intermediate Rash Verified 07/26/20 15:21 iodine Allergy Intermediate Rash Verified 07/26/20 15:21 Iodinated Contrast Media Allergy Hives Verified 07/26/20 15:21 [Iodinated Contrast Media - IV Dye] isosorbide [Isosorbide] AdvReac Cough Verified 07/26/20 15:21 midazolam HCl [From Versed] AdvReac Confusion Verified 07/26/20 15:21 NSAIDS (Non-Steroidal AdvReac Renal Verified 07/26/20 15:21 Anti-Inflamma Failure Home Meds: Home Meds Albuterol Sulfate [Proair Hfa] 2 puff IH QID PRN 04/25/13 [History] Aspirin [Adult Low Dose Aspirin EC] 81 mg PO DAILY 04/25/13 [History] Cholecalciferol (Vitamin D3) [Vitamin D3] 1,000 units PO BID 04/25/13 [History] Gabapentin [Neurontin] 300 mg PO TID 04/25/13 [History] Loratadine [Allergy] 10 mg PO ACBRK PRN 04/25/13 [History] Montelukast [Singulair] 10 mg PO BEDTIME 04/25/13 [History] metFORMIN [Glucophage] 1,000 mg PO PCBREAKFAST 04/25/13 [History] polyethylene glycoL 3350 [MiraLAX] 17 gm PO DAILY PRN 04/25/13 [History] traZODone 50 mg PO BEDTIME 04/25/13 [History] Verapamil [Calan] 20 mg PO TID 10/08/13 [History] Oxybutynin Chloride 5 mg PO TID 08/18/14 [History] Gabapentin [Neurontin] 600 mg PO BEDTIME 02/02/15 [History] Pantoprazole [ProTONIX] 40 mg PO BID 04/22/15 [History] Acetaminophen [Tylenol Arthritis] 650 mg PO Q8H PRN 05/10/16 [History] Triamcinolone Acetonide [Triamcinolone Acetonide 0.1% Crm] 1 applic TOP TID 12/26/17 [History] atorvaSTATin [Lipitor] 10 mg PO BEDTIME 01/12/19 [History] buPROPion HCL [Wellbutrin SR] 150 mg PO BID 01/12/19 [History] Lactobacillus Rhamnosus GG [Culturelle] 1 cap PO BID #60 cap 06/11/19 [Rx] Past Medical History HEENT History: Reports: Cataract, Hard of Hearing, Impaired Vision, Macular Degeneration Other HEENT History: wears glasses Cardiovascular History: Reports: Arrhythmia, High Cholesterol, Hypertension, SOB on Exertion Respiratory History: Reports: Asthma, COPD, SOB Gastrointestinal History: Reports: GERD, Hiatal Hernia Other Gastrointestinal History: Barretts esoph Genitourinary History: Reports: Renal Disease, Urinary Incontinence Other Genitourinary History: stage 3 kidney [employer] M[employer] T[employer]OR History: Reports: Musculoskeletal History: Reports: Arthritis, Fracture, Neck Pain, Chronic, Osteoarthritis Neurological History: Reports: Headaches, Chronic Other Neuro History: blood clot in brain (2016) resolved on it's own Psychiatric History: Reports: Anxiety, Mood Swings Endocrine/Metabolic History: Reports: Diabetes, Type II, Obesity/BMI 30+, Vitamin D Deficiency Other Endocrine/Metabolic History: BS this am 100 Hematologic History: Reports: Anemia, Blood Transfusion(s) Dermatologic History: Reports: Eczema - Infectious Disease History Infectious Disease History: Reports: Chicken Pox - Past Surgical History Head Surgeries/Procedures: Reports: None HEENT Surgical History: Reports: Cataract Surgery, Eye Surgery Cardiovascular Surgical History: Reports: None Other Cardiovascular Surgeries/Procedures: cardioverson x2 Respiratory Surgical History: Reports: None GI Surgical History: Reports: Colonoscopy, EGD, Esophageal Dilatation, Hernia Repair/Other, Debi Fundoplication Other GI Surgeries/Procedures: esophageal ablation. lap debi Female Surgical History: Reports: Section Other Female Surgeries/Procedures: hx of kidney failure-being followed by nephrology Endocrine Surgical History: Reports: None Neurological Surgical History: Reports: None Musculoskeletal Surgical History: Reports: Shoulder Surgery, Other (See Below) Other Musculoskeletal Surgeries/Procedures:: R shoulder surgery Dermatological Surgical History: Reports: None Social & Family History - Family History Family Medical History: No Pertinent Family History - Tobacco Use Tobacco Use Status *Q: Never Tobacco User - Caffeine Use Caffeine Use: Reports: Soda, Tea ED ROS GENERAL - Review of Systems Review Of Systems: See Below Constitutional: Denies: Fever, Chills Respiratory: Denies: Shortness of Breath Cardiovascular: Denies: Chest Pain GI/Abdominal: Reports: Abdominal Pain. Denies: Nausea, Vomiting Skin: Reports: Bruising (Some bruising is developing over the painful area) ED EXAM, GENERAL - Physical Exam Exam: See Below Exam Limited By: No Limitations General Appearance: Alert, No Apparent Distress Respiratory/Chest: No Respiratory Distress Cardiovascular: Regular Rate, Rhythm GI/Abdominal: Normal Bowel Sounds, Soft (The majority of the abdomen is soft but she does have a hematoma formed in the left lateral abdomen which is all subcutaneous. It is about 4 to 5 cm across. Some bruising is developing in the area.) Neurological: Alert, Oriented Skin Exam: Warm, Dry, Other (Skin is normal other than the bruised area over the left abdomen) Course - Vital Signs Last Recorded V/S: Last Vital Signs Temp 97.0 F 07/26/20 15:20 Pulse 92 07/26/20 15:20 Resp 20 07/26/20 15:20 BP 118/55 L 07/26/20 15:20 Pulse Ox 94 L 07/26/20 15:20 - Re-Assessments/Exams Free Text/Narrative Re-Assessment/Exam: 07/26/20 15:42 Explained to the patient she has an abdominal wall hematoma, all subcutaneous at this time and seems to be confined. Cool compresses or ice for the next 24 to 48 hours followed by warm compresses and this should resolve, if not improving in 3 to 4 days she can have it checked again. If it is worsening she should recheck it sooner. Departure - Departure Time of Disposition: 15:56 Disposition: Home, Self-Care 01 Clinical Impression: Hematoma of abdominal wall Qualifiers: Encounter type: initial encounter Qualified Code(s): S30.1XXA - Contusion of ab dominal wall, initial encounter - Discharge Information Instructions: Contusion, [id number] Referrals: Kolby Parra MD [Primary Care Provider] - Forms: ED Department Discharge Care Plan Goals: Cool compresses or ice over the swollen area for the 1st day or 2 may be helpful. Ibuprofen can help with pain, then moist heat after 48 hours may increase healing. Recheck in 3 to 4 days if not improving satisfactorily, or return sooner if worsening or concerns. Sepsis Event Note (ED) - Evaluation Sepsis Screening Result: No Definite Risk - Focused Exam Vital Signs: Vital Signs Temp Pulse Resp BP Pulse Ox 07/26/20 15:20 97.0 F 92 20 118/55 L 94 L
== END 2020-07-26 15:56 | disposition home or self-care (01) ==
LOC: JP.ED 15:01
DX: S30.1XXA Contusion of abdominal wall, initial encounter (principal); E78.00 Pure hypercholesterolemia, unspecified; I10 Essential (primary) hypertension; J44.9 Chronic obstructive pulmonary disease, unspecified; K21.9 Gastro-esophageal reflux disease without esophagitis; M19.90 Unspecified osteoarthritis, unspecified site; E11.9 Type 2 diabetes mellitus without complications; E66.9 Obesity, unspecified; Z68.34 Body mass index [BMI] 34.0-34.9, adult; Z79.82 Long term (current) use of aspirin; Z79.899 Other long term (current) drug therapy; Z88.5 Allergy status to narcotic agent; Z88.8 Allergy status to other drugs, medicaments and biological substances; Z91.041 Radiographic dye allergy status; Z88.4 Allergy status to anesthetic agent; W22.8XXA Striking against or struck by other objects, initial encounter; Y92.009 Unspecified place in unspecified non-institutional (private) residence as the place of occurrence of the external cause
CPT/HCPCS: 99282

== ENCOUNTER 2020-09-22 16:50 | Observation (INO) | payer MEDICARE ==
--- NOTE | 2020-09-22 17:07 | EDM.PDOC ---
<Indira Martin - Last Filed: 09/22/20 17:54> ED HPI GENERAL MEDICAL PROBLEM - General Chief Complaint: General Stated Complaint: FELL AND HIT HEAD Time Seen by Provider: 09/22/20 17:07 Source of Information: Reports: Patient History Limitations: Reports: No Limitations - History of Present Illness INITIAL COMMENTS - FREE TEXT/NARRATIVE: pt arrived with a history of suddenly feeling very weak. She was in her bedroom and she tried to stand and fell and hit her head on the rt forehead area. She does not think she was knocked out. She has a pass history of a subdural. She is not on blood thinners, Onset: Today, Sudden Duration: Hour(s): Location: Reports: Head, Face, Generalized, Other (pt is very wobbly on her feet and could not stand alone. ) Associated Symptoms: Reports: No Other Symptoms, Weakness, Other (pt did receive her second covid shot yesterday. ) - Related Data Allergies Allergy/AdvReac Type Severity Reaction Status Date / Time codeine Allergy Intermediate Rash Verified 07/26/20 15:21 iodine Allergy Intermediate Rash Verified 07/26/20 15:21 Iodinated Contrast Media Allergy Hives Verified 07/26/20 15:21 [Iodinated Contrast Media - IV Dye] isosorbide [Isosorbide] AdvReac Cough Verified 07/26/20 15:21 midazolam HCl [From Versed] AdvReac Confusion Verified 07/26/20 15:21 NSAIDS (Non-Steroidal AdvReac Renal Verified 07/26/20 15:21 Anti-Inflamma Failure Home Meds: Home Meds Albuterol Sulfate [Proair Hfa] 2 puff IH QID PRN 04/25/13 [History] Aspirin [Adult Low Dose Aspirin EC] 81 mg PO DAILY 04/25/13 [History] Cholecalciferol (Vitamin D3) [Vitamin D3] 1,000 units PO BID 04/25/13 [History] Loratadine [Allergy] 10 mg PO ACBRK PRN 04/25/13 [History] Montelukast [Singulair] 10 mg PO BEDTIME 04/25/13 [History] metFORMIN [Glucophage] 1,000 mg PO PCBREAKFAST 04/25/13 [History] polyethylene glycoL 3350 [MiraLAX] 17 gm PO DAILY PRN 04/25/13 [History] traZODone 50 mg PO BEDTIME 04/25/13 [History] Verapamil [Calan] 20 mg PO TID 10/08/13 [History] Oxybutynin Chloride 5 mg PO TID 08/18/14 [History] Gabapentin [Neurontin] 600 mg PO BEDTIME 02/02/15 [History] Pantoprazole [ProTONIX] 40 mg PO BID 04/22/15 [History] Acetaminophen [Tylenol Arthritis] 650 mg PO Q8H PRN 05/10/16 [History] Triamcinolone Acetonide [Triamcinolone Acetonide 0.1% Crm] 1 applic TOP TID 12/26/17 [History] atorvaSTATin [Lipitor] 10 mg PO BEDTIME 01/12/19 [History] buPROPion HCL [Wellbutrin SR] 150 mg PO BID 01/12/19 [History] Lactobacillus Rhamnosus GG [Culturelle] 1 cap PO BID #60 cap 06/11/19 [Rx] Past Medical History HEENT History: Reports: Cataract, Hard of Hearing, Impaired Vision, Macular Degeneration Other HEENT History: wears glasses Cardiovascular History: Reports: Arrhythmia, High Cholesterol, Hypertension, SOB on Exertion Respiratory History: Reports: Asthma, COPD, SOB Gastrointestinal History: Reports: GERD, Hiatal Hernia Other Gastrointestinal History: Barretts esoph Genitourinary History: Reports: Renal Disease, Urinary Incontinence Other Genitourinary History: 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: Musculoskeletal History: Reports: Arthritis, Fracture, Neck Pain, Chronic, Osteoarthritis Neurological History: Reports: Headaches, Chronic Other Neuro History: blood clot in brain (2016) resolved on it's own Psychiatric History: Reports: Anxiety, Mood Swings Endocrine/Metabolic History: Reports: Diabetes, Type II, Obesity/BMI 30+, Vitam in D Deficiency Other Endocrine/Metabolic History: BS this am 100 Hematologic History: Reports: Anemia, Blood Transfusion(s) Dermatologic History: Reports: Eczema - Infectious Disease History Infectious Disease History: Reports: Chicken Pox - Past Surgical History Head Surgeries/Procedures: Reports: None HEENT Surgical History: Reports: Cataract Surgery, Eye Surgery Cardiovascular Surgical History: Reports: None Other Cardiovascular Surgeries/Procedures: cardioverson x2 Respiratory Surgical History: Reports: None GI Surgical History: Reports: Colonoscopy, EGD, Esophageal Dilatation, Hernia Repair/Other, Doc Fundoplication Other GI Surgeries/Procedures: esophageal ablation. lap doc Female Surgical History: Reports: Section Other Female Surgeries/Procedures: hx of kidney failure-being followed by nephrology Endocrine Surgical History: Reports: None Neurological Surgical History: Reports: None Musculoskeletal Surgical History: Reports: Shoulder Surgery, Other (See Below) Other Musculoskeletal Surgeries/Procedures:: R shoulder surgery Dermatological Surgical History: Reports: None Social & Family History - Family History Family Medical History: No Pertinent Family History - Tobacco Use Tobacco Use Status *Q: Never Tobacco User - Caffeine Use Caffeine Use: Reports: Soda, Tea - Recreational Drug Use Recreational Drug Use: No ED ROS GENERAL - Review of Systems Review Of Systems: See Below Constitutional: Reports: Weakness, Other (pt was so weak that she did fall and hit her head and rt shoulder. ) HEENT: Reports: No Symptoms Respiratory: Reports: No Symptoms Cardiovascular: Reports: No Symptoms, Other (pt does not have chest pain) Endocrine: Reports: No Symptoms GI/Abdominal: Reports: No Symptoms : Reports: No Symptoms Musculoskeletal: Reports: No Symptoms, Other (pt has bruising of the ert shoulder but she is not having pain in the shoulder. ) Skin: Reports: Other (pt appears to bruise very easily. ) Neurological: Reports: Weakness, Other ( she does not describe dizziness as much as profound weakness. ) Psychiatric: Reports: Anxiety ED EXAM, GENERAL - Physical Exam Exam: See Below Free Text/Narrative:: pt became very weak in her room and she fell and hit her head and rt shoulder. Exam Limited By: No Limitations General Appearance: Alert, Mild Distress, Other (pt has alot of bruising but she is not uncomfortable. pupils are equal and reactive. ) Ears: Normal TMs Nose: Normal Inspection Throat/Mouth: Normal Inspection Head: Other (pt has marked bruising of the rt side of the forehead. ) Neck: Normal Inspection Respiratory/Chest: No Respiratory Distress Cardiovascular: Regular Rate, Rhythm GI/Abdominal: Soft, Non-Tender, Other (pt has a lump in the abdomanal wall which is from a previous hematoma from a fall. ) (Female) Exam: Deferred Rectal (Female) Exam: Deferred Back Exam: Normal Inspection Extremities: Normal Inspection Neurological: Alert, Oriented, Confused Psychiatric: Anxious Departure - Departure Disposition: Admitted As Inpatient 66 Clinical Impression: Generalized weakness, Dizziness Fall from standing Qualifiers: Encounter type: initial encounter Qualified Code(s): W19.XXXA - Unspecified fall, initial encounter - Discharge Information Referrals: Kolby Parra MD [Primary Care Provider] - Forms: ED Department Discharge <Jose David Ch - Last Filed: 09/22/20 18:38> Course - Vital Signs Last Recorded V/S: Last Vital Signs Temp 36.8 C 09/22/20 17:07 Pulse 86 09/22/20 17:58 Resp 16 09/22/20 17:58 BP 132/52 L 09/22/20 17:58 Pulse Ox 96 09/22/20 17:58 - Orders/Labs/Meds Orders: Active Orders 24 hr Category Date Time Status Cardiac Monitoring [RC] .As Directed Care 09/22/20 17:19 Active EKG Documentation Completion [RC] ASDIRECTED Care 09/22/20 18:03 Active UA W/MICROSCOPIC [URIN] Urgent Lab 09/22/20 17:17 Ordered Sodium Chloride 0.9% [Normal Saline] 1,000 ml Med 09/22/20 17:30 Active IV ASDIRECTED EKG 12 Lead [EK] Routine Ther 09/22/20 18:03 Ordered Medication Orders Sodium Chloride (Normal Saline) 1,000 mls @ 300 mls/hr IV ASDIRECTED KARINE Last Admin: 09/22/20 17:48 Dose: 300 mls/hr Documented by: GIANNA Labs: Laboratory Tests 09/22/20 09/22/20 09/22/20 Range/Units 17:18 17:45 17:46 WBC 15.3 H (4.5-11.0) K/uL RBC 3.97 (3.30-5.50) M/uL Hgb 11.9 L (12.0-15.0) g/dL Hct 36.8 (36.0-48.0) % MCV 93 (80-98) fL MCH 30 (27-31) pg MCHC 32 (32-36) % Plt Count 360 (150-400) K/uL Neut % (Auto) 85 H (36-66) % Lymph % (Auto) 4 L (24-44) % [place] % (Auto) 9 H (2-6) % Eos % (Auto) 1 L (2-4) % Baso % (Auto) 1 (0-1) % APTT (27.0-36.0) sec Sodium 134 L (140-148) mmol/L Potassium 4.8 (3.6-5.2) mmol/L Chloride 97 L (100-108) mmol/L Carbon Dioxide 27 (21-32) mmol/L Anion Gap 14.8 H (5.0-14.0) mmol/L BUN 18 (7-18) mg/dL Creatinine 1.2 H (0.6-1.0) mg/dL Est Cr Clr Drug Dosing 31.33 mL/min Estimated GFR (MDRD) 44 L (>60) Glucose 109 H (74-106) mg/dL POC Glucose 111 H (74-106) MG/DL Calcium 9.0 D (8.5-10.1) mg/dL Total Bilirubin 0.3 (0.2-1.0) mg/dL AST 34 D (15-37) U/L ALT 34 (12-78) U/L Alkaline Phosphatase 106 (46-116) U/L Total Protein 7.4 (6.4-8.2) g/dL Albumin 2.9 L (3.4-5.0) g/dL Globulin 4.5 H (2.3-3.5) g/dL Albumin/Globulin Ratio 0.6 L (1.2-2.2) 09/22/ Range/Units 17:46 WBC (4.5-11.0) K/uL RBC (3.30-5.50) M/uL Hgb (12.0-15.0) g/dL Hct (36.0-48.0) % MCV (80-98) fL MCH (27-31) pg MCHC (32-36) % Plt Count (150-400) K/uL Neut % (Auto) (36-66) % Lymph % (Auto) (24-44) % [place] % (Auto) (2-6) % Eos % (Auto) (2-4) % Baso % (Auto) (0-1) % APTT 28.0 (27.0-36.0) sec Sodium (140-148) mmol/L Potassium (3.6-5.2) mmol/L Chloride (100-108) mmol/L Carbon Dioxide (21-32) mmol/L Anion Gap (5.0-14.0) mmol/L BUN (7-18) mg/dL Creatinine (0.6-1.0) mg/dL Est Cr Clr Drug Dosing mL/min Estimated GFR (MDRD) (>60) Glucose (74-106) mg/dL POC Glucose (74-106) MG/DL Calcium (8.5-10.1) mg/dL Total Bilirubin (0.2-1.0) mg/dL AST (15-37) U/L ALT (12-78) U/L Alkaline Phosphatase (46-116) U/L Total Protein (6.4-8.2) g/dL Albumin (3.4-5.0) g/dL Globulin (2.3-3.5) g/dL Albumin/Globulin Ratio (1.2-2.2) Meds: Medications Generic Name Dose Route Start Last Admin Trade Name Freq PRN Reason Stop Dose Admin Sodium Chloride 1,000 mls @ 300 mls/hr 09/22/20 17:30 09/22/20 17:48 Normal Saline IV 300 mls/hr ASDIRECTED [facility] Administration - Re-Assessments/Exams Free Text/Narrative Re-Assessment/Exam: 09/22/20 18:00 Dr. Ch is assuming care of the patient from Dr. Martin. 09/22/20 18:[address] of the head without contrast demonstrating a right forehead hematoma without evidence of a cranial fracture or intracranial abnormality. There is no evidence for cranial bleeding. There is no mass-effe ct or midline shift. Viewed the labs showing a leukocytosis of 15.3 with 85% neutrophils. The comprehensive metabolic panel was significant for sodium of 134 and a creatinine of 1.2. At this time, it is clear that the patient is too unsteady to go home. Whether this is directly due to receiving her second Covid vaccine or not is good to be difficult to determine, however, she does meet requirement for hospitalization at this time as she lives alone in an apartment. I discussed the case with Martha Sauer CNP who will arrange the admission to the hospital. Still awaiting the urine results, however, the patient has not voided yet but it would not be unreasonable to think that UTI could be causing her symptoms. Regardless, the patient still would require hospitalization at this time. Departure - Departure Time of Disposition: 18:36 Sepsis Event Note (ED) - Focused Exam Vital Signs: Vital Signs Temp Pulse Resp BP Pulse Ox 09/22/20 17:58 86 16 132/52 L 96 09/22/20 17:07 36.8 C 89 16 142/56 H 94 L 09/22/20 17:03 36.8 C 89 16 142/56 H 94 L
[2020-09-22] MEDS ORDERED: Sodium Chloride 0.9% 1,000 ML IV SCH (17:30)
--- NOTE | 2020-09-22 18:23 | CRLCT ---
INDICATION: Fall with trauma to right forehead TECHNIQUE: CT head without contrast. COMPARISON: None FINDINGS: CSF spaces: Within normal limits for age. Brain parenchyma: The gimenez-white differentiation is normal. No sign of mass, hemorrhage, or midline shift. Skull base and calvarium: The visualized paranasal sinuses and mastoid air cells demonstrate no acute or significant findings. The visualized orbits are grossly unremarkable. No skull fractures. Right frontal scalp hematoma. IMPRESSION: Right frontal scalp hematoma with no associated fractures or evidence of acute intracranial trauma. Dictated by Kolby Morales MD @ 09/22/2020 6:20:46 PM Please note that all CT scans at this facility use dose modulation, iterative reconstruction, and/or weight-based dosing when appropriate to reduce radiation dose to as low as reasonably achievable. Dictated by: Kolby Morales MD @ 09/22/2020 18:20:50 (Electronically Signed)
--- NOTE | 2020-09-22 19:17 | PCM.HP.2 ---
H&P History of Present Illness - General Date of Service: 09/22/20 Admit Problem/Dx: Admission Diagnosis/Problem Admission Diagnosis/Problem Weakness Source of Information: Patient, Family (Daughter Jocy at bedside) History Limitations: Reports: No Limitations - History of Present Illness Initial Comments - Free Text/Narative: chief complaint: fall at home- weakness Weakness with fall at home.- this is a 72 year old female reports fall at home in her bedroom. She hit her right forehead, does not believe she had LOC, could not stand up due to weakness and crawled on her hands and knee to the kitchen where her cell phone was located. She was brought to the hospital. Had a CT of head and labs which did not show any acute process. Due to her not being able to walk and her balance being impaired, she reluctantly agrees to overnight admission for fluids and monitoring. Also reports had her 2nd Covid vaccine and hasn't well since the shot. Onset of Symptoms: Reports: Today Symptom Onset Date: 09/22/20 Symptom Onset Time: 16:00 Duration of Symptoms: Reports: Constant Location: Reports: Head, Other (bruising bilateral shoulder, right forearm, right forehead) Quality: Reports: Ache Severity: Mild Improves with: Reports: Rest Worsens with: Reports: Movement Context: Reports: Trauma (fall in bedrooom of home) Associated Symptoms: Reports: Headaches, Weakness - Related Data Allergies/Adverse Reactions: Allergies Allergy/AdvReac Type Severity Reaction Status Date / Time codeine Allergy Intermediate Rash Verified 07/26/20 15:21 iodine Allergy Intermediate Rash Verified 07/26/20 15:21 Iodinated Contrast Media Allergy Hives Verified 07/26/20 15:21 [Iodinated Contrast Media - IV Dye] isosorbide [Isosorbide] AdvReac Cough Verified 07/26/20 15:21 midazolam HCl [From Versed] AdvReac Confusion Verified 07/26/20 15:21 NSAIDS (Non-Steroidal AdvReac Renal Verified 07/26/20 15:21 Anti-Inflamma Failure Home Medications: Home Meds Albuterol Sulfate [Proair Hfa] 2 puff IH QID PRN 04/25/13 [History] Aspirin [Adult Low Dose Aspirin EC] 81 mg PO DAILY 04/25/13 [History] Cholecalciferol (Vitamin D3) [Vitamin D3] 1,000 units PO BID 10/26/13 [History] Loratadine [Allergy] 10 mg PO ACBRK PRN 04/25/13 [History] Montelukast [Singulair] 10 mg PO BEDTIME 04/25/13 [History] metFORMIN [Glucophage] 1,000 mg PO PCBREAKFAST 04/25/13 [History] polyethylene glycoL 3350 [MiraLAX] 17 gm PO DAILY PRN 04/25/13 [History] traZODone 50 mg PO BEDTIME 04/25/13 [History] Verapamil [Calan] 20 mg PO TID 10/08/13 [History] Oxybutynin Chloride 5 mg PO TID 08/18/14 [History] Gabapentin [Neurontin] 600 mg PO BEDTIME 02/02/15 [History] Pantoprazole [ProTONIX] 40 mg PO BID 04/22/15 [History] Acetaminophen [Tylenol Arthritis] 650 mg PO Q8H PRN 05/10/16 [History] Triamcinolone Acetonide [Triamcinolone Acetonide 0.1% Crm] 1 applic TOP TID 12/26/17 [History] atorvaSTATin [Lipitor] 10 mg PO BEDTIME 01/12/19 [History] buPROPion HCL [Wellbutrin SR] 150 mg PO BID 01/12/19 [History] Lactobacillus Rhamnosus GG [Culturelle] 1 cap PO BID #60 cap 06/11/19 [Rx] Past Medical History HEENT History: Reports: Cataract, Hard of Hearing, Impaired Vision, Macular Degeneration Other HEENT History: wears glasses Cardiovascular History: Reports: Arrhythmia, High Cholesterol, Hypertension, SOB on Exertion Respiratory History: Reports: Asthma, COPD, SOB Gastrointestinal History: Reports: GERD, Hiatal Hernia Other Gastrointestinal History: Barretts esoph Genitourinary History: Reports: Renal Disease, Urinary Incontinence Other Genitourinary History: stage 3 kidney 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: Musculoskeletal History: Reports: Arthritis, Fracture, Neck Pain, Chronic, Osteoarthritis Neurological History: Reports: Headaches, Chronic Other Neuro History: blood clot in brain (2016) resolved on it's own Psychiatric History: Reports: Anxiety, Mood Swings Endocrine/Metabolic History: Reports: Diabetes, Type II, Obesity/BMI 30+, Vitamin D Deficiency Other Endocrine/Metabolic History: BS this am 100 Hematologic History: Reports: Anemia, Blood Transfusion(s) Dermatologic History: Reports: Eczema - Infectious Disease History Infectious Disease History: Reports: Chicken Pox - Past Surgical History Head Surgeries/Procedures: Reports: None HEENT Surgical History: Reports: Cataract Surgery, Eye Surgery Cardiovascular Surgical History: Reports: None Other Cardiovascular Surgeries/Procedures: cardioverson x2 Respiratory Surgical History: Reports: None GI Surgical History: Reports: Colonoscopy, EGD, Esophageal Dilatation, Hernia Repair/Other, Doc Fundoplication Other GI Surgeries/Procedures: esophageal ablation. lap doc Female Surgical History: Reports: Section Other Female Surgeries/Procedures: hx of kidney failure-being followed by nephrology Endocrine Surgical History: Reports: None Neurological Surgical History: Reports: None Musculoskeletal Surgical History: Reports: Shoulder Surgery, Other (See Below) Other Musculoskeletal Surgeries/Procedures:: R shoulder surgery Dermatological Surgical History: Reports: None Social & Family History - Family History Family Medical History: No Pertinent Family History - Tobacco Use Tobacco Use Status *Q: Never Tobacco User - Caffeine Use Caffeine Use: Reports: Soda, Tea - Recreational Drug Use Recreational Drug Use: No - Living Situation & Occupation Living situation: Reports: , Alone (lives alone in apartment in [place], [place]. has 2 Daughters Jocy and Lynette who live close by.) Occupation: Retired H&P Review of Systems - Review of Systems: Review Of Systems: See Below General: Reports: Weakness, Fatigue HEENT: Reports: Glasses, Headaches Pulmonary: Reports: Shortness of Breath (normally short of breath from COPD) Cardiovascular: Reports: No Symptoms Gastrointestinal: Reports: Other (hungry) Genitourinary: Reports: No Symptoms Musculoskeletal: Reports: Shoulder Pain (bruising to bilateral shoulders), Arm Pain (right arm is painful and bruised from crawling.) Skin: Reports: Bruising (noted to shoulders, arms and legs, right forehead) Neurological: Reports: Pre-Existing Deficit, Weakness Hematologic/Lymphatic: Reports: No Symptoms Immunologic: Reports: No Symptoms Exam - Exam Exam: See Below - Vital Signs Vital Signs: Last Vital Signs Temp 98.2 F 09/22/20 17:07 Pulse 86 09/22/20 17:58 Resp 16 09/22/20 17:58 BP 132/52 L 09/22/20 17:58 Pulse Ox 96 09/22/20 17:58 Weight: 155 lb - Exam General: Alert, Oriented, Cooperative HEENT: PERRLA, EOMI, Hearing Intact, Mucosa Moist & [place], Nares Patent, Normal Nasal Septum, Posterior Pharynx Clear, TMs Clear, Glasses Neck: Supple, Trachea Midline Lungs: Clear to Auscultation, Normal Respiratory Effort Cardiovascular: Regular Rate, Regular Rhythm, Normal S1, Normal S2 GI/Abdominal Exam: Normal Bowel Sounds, Soft, Non-Tender, No Organomegaly, No Distention, No Abnormal Bruit, No Mass, Pelvis Stable (Female) Exam: Deferred Rectal (Female) Exam: Deferred Back Exam: Normal Inspection, Full Range of Motion, Other (rash noted to lower back, dried circular sores) Extremities: Normal Inspection, Normal Range of Motion, Non-Tender, No Pedal Edema, Normal Capillary Refill Peripheral Pulses: 2+: Radial (L), Radial (R) Skin: Warm, Dry, Rash (rash noted to lower back. dry red sore without signs of infections), Other (abrasion noted to right forehead, bruising with intact skin to shoulders and arms.) Neurological: Cranial Nerves Intact, Reflexes Equal Bilateral, Strength Equal Bilateral, Normal Speech, Normal Tone Neuro Extensive - Mental Status: Alert, Oriented x3, Normal Mood/Affect, Normal Cognition, Memory Intact Neuro Extensive - Motor, Sensory, Reflexes: Abnormal Gait (pre-existing deficits with ambulation, use of walker ) Psychiatric: Alert, Normal Affect, Normal Mood - Patient Data Lab Results Last 24 hrs: Laboratory Results - last 24 hr 09/22/20 09/22/20 09/22/20 Range/Units 17:18 17:45 17:46 WBC 15.3 H (4.5-11.0) K/uL RBC 3.97 (3.30-5.50) M/uL Hgb 11.9 L (12.0-15.0) g/dL Hct 36.8 (36.0-48.0) % MCV 93 (80-98) fL MCH 30 (27-31) pg MCHC 32 (32-36) % Plt Count 360 (150-400) K/uL Neut % (Auto) 85 H (36-66) % Lymph % (Auto) 4 L (24-44) % [place] % (Auto) 9 H (2-6) % Eos % (Auto) 1 L (2-4) % Baso % (Auto) 1 (0-1) % APTT (27.0-36.0) sec Sodium 134 L (140-148) mmol/L Potassium 4.8 (3.6-5.2) mmol/L Chloride 97 L (100-108) mmol/L Carbon Dioxide 27 (21-32) mmol/L Anion Gap 14.8 H (5.0-14.0) mmol/L BUN 18 (7-18) mg/dL Creatinine 1.2 H (0.6-1.0) mg/dL Est Cr Clr Drug Dosing 31.33 mL/min Estimated GFR (MDRD) 44 L (>60) Glucose 109 H (74-106) mg/dL POC Glucose 111 H (74-106) MG/DL Calcium 9.0 D (8.5-10.1) mg/dL Total Bilirubin 0.3 (0.2-1.0) mg/dL AST 34 D (15-37) U/L ALT 34 (12-78) U/L Alkaline Phosphatase 106 (46-116) U/L Total Protein 7.4 (6.4-8.2) g/dL Albumin 2.9 L (3.4-5.0) g/dL Globulin 4.5 H (2.3-3.5) g/dL Albumin/Globulin Ratio 0.6 L (1.2-2.2) 09/22/ Range/Units 17:46 WBC (4.5-11.0) K/uL RBC (3.30-5.50) M/uL Hgb (12.0-15.0) g/dL Hct (36.0-48.0) % MCV (80-98) fL MCH (27-31) pg MCHC (32-36) % Plt Count (150-400) K/uL Neut % (Auto) (36-66) % Lymph % (Auto) (24-44) % [place] % (Auto) (2-6) % Eos % (Auto) (2-4) % Baso % (Auto) (0-1) % APTT 28.0 (27.0-36.0) sec Sodium (140-148) mmol/L Potassium (3.6-5.2) mmol/L Chloride (100-108) mmol/L Carbon Dioxide (21-32) mmol/L Anion Gap (5.0-14.0) mmol/L BUN (7-18) mg/dL Creatinine (0.6-1.0) mg/dL Est Cr Clr Drug Dosing mL/min Estimated GFR (MDRD) (>60) Glucose (74-106) mg/dL POC Glucose (74-106) MG/DL Calcium (8.5-10.1) mg/dL Total Bilirubin (0.2-1.0) mg/dL AST (15-37) U/L ALT (12-78) U/L Alkaline Phosphatase (46-116) U/L Total Protein (6.4-8.2) g/dL Albumin (3.4-5.0) g/dL Globulin (2.3-3.5) g/dL Albumin/Globulin Ratio (1.2-2.2) Result Diagrams: 09/22/20 17:45 09/22/20 17:46 Sepsis Event Note - Evaluation Sepsis Screening Result: No Definite Risk - Focused Exam Vital Signs: Vital Signs Temp Pulse Resp BP Pulse Ox 09/22/20 17:58 86 16 132/52 L 96 09/22/20 17:07 98.2 F 89 16 142/56 H 94 L 09/22/20 17:03 98.2 F 89 16 142/56 H 94 L - Problem List (1) Weakness SNOMED Code(s): 92566208 ICD Code: R53.1 - WEAKNESS Status: Acute Priority: High Current Visit: Yes (2) CKD (chronic kidney disease) stage 3, GFR 30-59 ml/min SNOMED Code(s): 316689797 ICD Code: N18.3 - CHRONIC KIDNEY DISEASE, STAGE 3 (MODERATE) * DO NOT USE * Status: Chronic Priority: Low Current Visit: No (3) COPD (chronic obstructive pulmonary disease) SNOMED Code(s): 26538099 ICD Code: J44.9 - CHRONIC OBSTRUCTIVE PULMONARY DISEASE, UNSPECIFIED Stat us: Chronic Priority: Low Current Visit: No (4) Degenerative arthritis SNOMED Code(s): 884146706 ICD Code: M19.90 - UNSPECIFIED OSTEOARTHRITIS, UNSPECIFIED SITE Status: Chronic Priority: Low Current Visit: No Qualifiers: Osteoarthritis location: unspecified site (5) Type 2 diabetes mellitus SNOMED Code(s): 23545215 ICD Code: E11.9 - TYPE 2 DIABETES MELLITUS WITHOUT COMPLICATIONS Status: Chronic Priority: Low Current Visit: No Qualifiers: 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 insulin use: without fci use Diabetes mellitus complication status: with diabetic arthropathy Problem List Initiated/Reviewed/Updated: Yes Orders Last 24hrs: Active Orders 24 hr Category Date Time Status Patient Status Manage Transfer [TRANSFER] Routine ADT 09/22/20 18:55 Ordered Cardiac Monitoring [RC] .As Directed Care 09/22/20 17:19 Active EKG Documentation Completion [RC] ASDIRECTED Care 09/22/20 18:03 Active UA W/MICROSCOPIC [URIN] Urgent Lab 09/22/20 18:45 Received Sodium Chloride 0.9% [Normal Saline] 1,000 ml Med 09/22/20 17:30 Active IV ASDIRECTED Resuscitation Status Routine Resus Stat 09/22/20 18:57 Ordered EKG 12 Lead [EK] Routine Ther 09/22/20 18:03 Ordered Medication Orders Sodium Chloride (Normal Saline) 1,000 mls @ 300 mls/hr IV ASDIRECTED KARINE Last Admin: 09/22/20 17:48 Dose: 300 mls/hr Documented by: GIANNA Assessment/Plan Comment:: Assessment/Plan Comment:: WEAKNESS ASSESSMENT AND PLAN Weakness with fall at home.- this is a 72 year old female reports fall at home in her bedroom. She hit her right forehead, does not believe she had LOC, could not stand up due to weakness and crawled on her hands and knee to the kitchen where her cell phone was located. She was brought to the hospital. Had a CT of head and labs which did not show any acute process. Due to her not being able to walk and her balance being impaired, she reluctantly agrees to overnight admission for fluids and monitoring. Also reports had her 2nd Covid vaccine and hasn't well since the shot. -IV Normal Saline 100ml/hr -neuro check every shift -telemetry -consult to PT -consult to OT -repeat labs in am - CBC, BMP Degenerative Arthritis -ambulates with walker at home -high risk for falls -continue outpatient medications COPD -Supplemental oxygen as needed -Nebulized albuterol and Duo Nebs prn Diabetes Type 2 - declines insulin therapy, will take Metformin and diet control. does monitor blood glucose usually about 160-170 -consistent carb diet -Blood glucose testing before meals and at bedtime Kidney disease stage 3- current creatinine is at baseline at 1.2 GFR 44 - labs reviewed since 2019 creatinine between 1.0 to 1.3 -gentle rehydration -I & O -Repeat labs in the morning MAINTENANCE ISSUES -DVT prophylaxis; SCD -GI prophylaxis; continue outpatient PPI -[place] catheter; not indicated -Nutrition; consistent carb diet -Nicotine dependence; not required -consult to OT and PT CODE STATUS-FULL CODE ADMISSION STATUS-this patient will be admitted to observation status, expect no more than a one night hospital stay for evaluation and management of problems as outlined above. DISPOSITION-anticipate discharge to home after the hospital stay. PRIMARY CARE PROVIDER-Dr. Parra HOSPITALIST Dr. Cabrera - Mortality Measure Prognosis:: Good - Mortality Measure Prognosis:: Good
[2020-09-22] MEDS ORDERED: Albuterol 0.083% 2.5 MG/3 ML Neb Soln NEB PRN (19:25)
[2020-09-22] MEDS ORDERED: Docusate Sodium 100 MG Cap PO PRN (19:25)
[2020-09-22] MEDS ORDERED: oxyCODONE 5 MG Tab PO PRN (19:25)
[2020-09-22] MEDS ORDERED: Ondansetron 4 MG/2 ML SDV IV PRN (19:25)
[2020-09-22] MEDS ORDERED: Albuterol/Ipratropium 3.0-0.5 MG/3 ML Neb Soln NEB PRN (19:25)
[2020-09-22] MEDS ORDERED: Ondansetron 4 MG Tab.DIS PO PRN (19:25)
[2020-09-22] MEDS ORDERED: Bisacodyl 5 MG Tab PO PRN (19:25)
[2020-09-22] MEDS: Sodium Chloride 0.9% 1,000 ML IV SCH (20:01)
[2020-09-22] MEDS ORDERED: traZODone 50 MG Tab PO SCH (21:00)
[2020-09-22] MEDS ORDERED: buPROPion 150 MG Tab.SR PO SCH (21:00)
[2020-09-22] MEDS ORDERED: Gabapentin 300 MG Cap PO SCH (21:00)
[2020-09-22] MEDS ORDERED: Verapamil 80 MG Tab PO SCH (21:00)
[2020-09-22] MEDS ORDERED: Pantoprazole 40 MG Tab.CR PO SCH (21:00)
[2020-09-22] MEDS ORDERED: Montelukast 10 MG Tab PO SCH (21:00)
[2020-09-22] MEDS: Acetaminophen 325 MG Tab PO PRN (21:17)
[2020-09-22] MEDS: Triamcinolone Acetonide 0.1% Crm 15 GM Tube TOP SCH (21:18)
[2020-09-23 04:10] VITALS: BP 112/47; PULSE 73
[2020-09-23] MEDS: Sodium Chloride 0.9% 1,000 ML IV SCH (05:02)
[2020-09-23] MEDS: Acetaminophen 325 MG Tab PO PRN (05:51)
[2020-09-23] MEDS ORDERED: Pantoprazole 40 MG Tab.CR (PTOM) PO SCH (07:30)
[2020-09-23] MEDS: Triamcinolone Acetonide 0.1% Crm 15 GM Tube TOP SCH (08:59)
[2020-09-23] MEDS ORDERED: VERAPAMIL 40 MG PO SCH (09:00)
[2020-09-23] MEDS ORDERED: BUPROPION 150 MG PO SCH (09:00)
--- NOTE | 2020-09-23 09:20 | PCM.DCSUM1 ---
Discharge Summary - Hospital Course Brief History: 70-year-old female with history of type 2 diabetes mellitus, generalized osteoarthritis, COPD who presented with weakness after falling in her bedroom and hitting her head. She is admitted for observation with weakness. Diagnosis: Stroke: No - Discharge Data Discharge Date: 09/23/20 Discharge Disposition: Home, Self-Care 01 Condition: Good - Referral to Home Health Primary Care Physician: Kolby Parra MD - Discharge Diagnosis/Problem(s) (1) Fall from standing SNOMED Code(s): 9940984 ICD Code: W19.XXXA - UNSPECIFIED FALL, INITIAL ENCOUNTER Status: Acute Current Visit: Yes Qualifiers: Encounter type: initial encounter Qualified Code(s): W19.XXXA - Unspecified fall, initial encounter (2) Weakness SNOMED Code(s): 87184913 ICD Code: R53.1 - WEAKNESS Status: Acute Priority: High Current Visit: Yes (3) Degenerative arthritis SNOMED Code(s): 610696490 ICD Code: M19.90 - UNSPECIFIED OSTEOARTHRITIS, UNSPECIFIED SITE Status: Chronic Priority: Low Current Visit: No Qualifiers: Osteoarthritis location: unspecified site (4) Type 2 diabetes mellitus SNOMED Code(s): 15220341 ICD Code: E11.9 - TYPE 2 DIABETES MELLITUS WITHOUT COMPLICATIONS Status: Chronic Priority: Low Current Visit: No Qualifiers: 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 OT Reason for Consult: Discharge Planning This query below is only for informational purposes and is not editable. PT Evaluation and Treatment [CONS] Routine Please Evaluate and Treat. PT Reason for Consult: Ambulation This query below is only for informational purposes and is not editable. Hospital Course: Martha presented to the emergency room with weakness after falling and hitting her head at home. Work-up in the emergency room was reassuring with normal laboratory studies and a normal head CT. There was some evidence for mild dehydration. She was too weak to stand up so she was admitted to the hospital for observation and some therapy. She received some gentle IV fluids overnight. There were no acute issues overnight. The morning after admission she is feeling much better. She has able to get up out of bed and out of the chair and ambulate effectively with her walker. She feels pretty much back to her usual self and is hoping to go home. Her vital signs have all been stable. There is no evidence for infection. I encouraged her to drink plenty of fluids to maintain hydration. She can follow-up as needed. - Patient Instructions Diet: Diabetic Diet Activity: As Tolerated Activity, Other: take it easy for the next couple of days Showering/Bathing: May Shower Notify Provider of: Fever, Increased Pain, Nausea and/or Vomiting Other/Special Instructions: 1. You were in the hospital for observation after a fall with head trauma, dizziness and weakness. Your condition has improved o vernight with gentle IV fluid hydration. I suspect mild dehydration led to the dizziness and fall. Please drink plenty of water each day to maintain adequate hydration. Take it easy for the next couple of days before returning to normal activities. Follow-up with your primary care provider if symptoms do not continue to get better or if they get worse. 2. Continue your usual home medications as previously prescribed. - Discharge Plan *PRESCRIPTION DRUG MONITORING PROGRAM REVIEWED*: Not Applicable *COPY OF PRESCRIPTION DRUG MONITORING REPORT IN PATIENT QAMAR: Not Applicable Home Medications: Home Meds Albuterol Sulfate [Proair Hfa] 2 puff IH QID PRN 04/25/13 [History] Aspirin [Adult Low Dose Aspirin EC] 81 mg PO DAILY 04/25/13 [History] Cholecalciferol (Vitamin D3) [Vitamin D3] 1,000 units PO BID 04/25/13 [History] Loratadine [Allergy] 10 mg PO ACBRK PRN 04/25/13 [History] Montelukast [Singulair] 10 mg PO BEDTIME 04/25/13 [History] metFORMIN [Glucophage] 1,000 mg PO PCBREAKFAST 04/25/13 [History] polyethylene glycoL 3350 [MiraLAX] 17 gm PO DAILY PRN 04/25/13 [History] traZODone 50 mg PO BEDTIME 04/25/13 [History] Verapamil [Calan] 20 mg PO TID 10/08/13 [History] Oxybutynin Chloride 5 mg PO TID 08/18/14 [History] Gabapentin [Neurontin] 600 mg PO BEDTIME 02/02/15 [History] Pantoprazole [ProTONIX] 40 mg PO BID 04/22/15 [History] Acetaminophen [Tylenol Arthritis] 650 mg PO Q8H PRN 05/10/16 [History] Triamcinolone Acetonide [Triamcinolone Acetonide 0.1% Crm] 1 applic TOP TID 12/26/17 [History] atorvaSTATin [Lipitor] 10 mg PO BEDTIME 01/12/19 [History] buPROPion HCL [Wellbutrin SR] 150 mg PO BID 01/12/19 [History] Lactobacillus Rhamnosus GG [Culturelle] 1 cap PO BID #60 cap 06/11/19 [Rx] Patient Handouts: Dizziness, [id number] Referrals: Kolby Parra MD [Primary Care Provider] - (f/u as needed after the hospital stay ) - Discharge Summary/Plan Comment DC Time >30 min.: No - Patient Data Vitals - Most Recent: Last Vital Signs Temp 36.3 C 09/23/20 03:00 Pulse 73 09/23/20 03:00 Resp 14 09/23/20 07:00 BP 112/47 L 09/23/20 07:00 Pulse Ox 98 09/23/20 07:00 Weight - Most Recent: 72.167 kg I&O - Last 24 hours: Intake & Output 09/22/20 09/23/20 09/23/20 22:59 06:59 14:59 Intake Total 240 1190 Output Total 1000 Balance 240 190 Lab Results - Last 24 hrs: Laboratory Results - last 24 hr 09/22/20 09/22/20 09/22/20 Range/Units 17:18 17:45 17:46 WBC 15.3 H (4.5-11.0) K/uL RBC 3.97 (3.30-5.50) M/uL Hgb 11.9 L (12.0-15.0) g/dL Hct 36.8 (36.0-48.0) % MCV 93 (80-98) fL MCH 30 (27-31) pg MCHC 32 (32-36) % Plt Count 360 (150-400) K/uL Neut % (Auto) 85 H (36-66) % Lymph % (Auto) 4 L (24-44) % [place] % (Auto) 9 H (2-6) % Eos % (Auto) 1 L (2-4) % Baso % (Auto) 1 (0-1) % APTT (27.0-36.0) sec Sodium 134 L (140-148) mmol/L Potassium 4.8 (3.6-5.2) mmol/L Chloride 97 L (100-108) mmol/L Carbon Dioxide 27 (21-32) mmol/L Anion Gap 14.8 H (5.0-14.0) mmol/L BUN 18 (7-18) mg/dL Creatinine 1.2 H (0.6-1.0) mg/dL Est Cr Clr Drug Dosing 31.33 mL/min Estimated GFR (MDRD) 44 L (>60) Glucose 109 H (74-106) mg/dL POC Glucose 111 H (74-106) MG/DL Calcium 9.0 D (8.5-10.1) mg/dL Total Bilirubin 0.3 (0.2-1.0) mg/dL AST 34 D (15-37) U/L ALT 34 (12-78) U/L Alkaline Phosphatase 106 (46-116) U/L Total Protein 7.4 (6.4-8.2) g/dL Albumin 2.9 L (3.4-5.0) g/dL Globulin 4.5 H (2.3-3.5) g/dL Albumin/Globulin Ratio 0.6 L (1.2-2.2) Urine Color (YELLOW) Urine Appearance (CLEAR) Urine pH (5.0-8.0) Ur Specific [place] (1.008-1.030) Urine Protein (NEGATIVE) mg/dL Urine Glucose (UA) (NEGATIVE) mg/dL Urine Ketones (NEGATIVE) mg/dL Urine Occult Blood (NEGATIVE) Urine Nitrite (NEGATIVE) Urine Bilirubin (NEGATIVE) Urine Urobilinogen (0.2-1.0) EU/dL Ur Leukocyte Esterase (NEGATIVE) Urine RBC (0-5) Urine WBC (0-5) Ur Epithelial Cells Amorphous Sediment Urine Bacteria Urine Mucus 09/22/20 09/22/20 09/23/20 Range/Units 17:46 18:45 05:55 WBC 9.0 (4.5-11.0) K/uL RBC 3.67 (3.30-5.50) M/uL Hgb 11.1 L (12.0-15.0) g/dL Hct 34.3 L (36.0-48.0) % MCV 94 (80-98) fL MCH 30 (27-31) pg MCHC 32 (32-36) % Plt Count 341 (150-400) K/uL Neut % (Auto) 70 H (36-66) % Lymph % (Auto) 10 L (24-44) % [place] % (Auto) 15 H (2-6) % Eos % (Auto) 5 H (2-4) % Baso % (Auto) 1 (0-1) % APTT 28.0 (27.0-36.0) sec Sodium (140-148) mmol/L Potassium (3.6-5.2) mmol/L Chloride (100-108) mmol/L Carbon Dioxide (21-32) mmol/L Anion Gap (5.0-14.0) mmol/L BUN (7-18) mg/dL Creatinine (0.6-1.0) mg/dL Est Cr Clr Drug Dosing mL/min Estimated GFR (MDRD) (>60) Glucose (74-106) mg/dL POC Glucose (74-106) MG/DL Calcium (8.5-10.1) mg/dL Total Bilirubin (0.2-1.0) mg/dL AST (15-37) U/L ALT (12-78) U/L Alkaline Phosphatase (46-116) U/L Total Protein (6.4-8.2) g/dL Albumin (3.4-5.0) g/dL Globulin (2.3-3.5) g/dL Albumin/Globulin Ratio (1.2-2.2) Urine Color Yellow (YELLOW) Urine Appearance Slightly cloudy A (CLEAR) Urine pH 6.0 (5.0-8.0) Ur Specific [place] 1.020 (1.008-1.030) Urine Protein 30 H (NEGATIVE) mg/dL Urine Glucose (UA) Negative (NEGATIVE) mg/dL Urine Ketones Negative (NEGATIVE) mg/dL Urine Occult Blood Moderate H (NEGATIVE) Urine Nitrite Negative (NEGATIVE) Urine Bilirubin Negative (NEGATIVE) Urine Urobilinogen 0.2 (0.2-1.0) EU/dL Ur Leukocyte Esterase Trace H (NEGATIVE) Urine RBC 5-10 H (0-5) Urine WBC 0-5 (0-5) Ur Epithelial Cells Moderate Amorphous Sediment Few Urine Bacteria Few Urine Mucus Few 09/23/20 Range/Units 05:55 WBC (4.5-11.0) K/uL RBC (3.30-5.50) M/uL Hgb (12.0-15.0) g/dL Hct (36.0-48.0) % MCV (80-98) fL MCH (27-31) pg MCHC (32-36) % Plt Count (150-400) K/uL Neut % (Auto) (36-66) % Lymph % (Auto) (24-44) % [place] % (Auto) (2-6) % Eos % (Auto) (2-4) % Baso % (Auto) (0-1) % APTT (27.0-36.0) sec Sodium 140 (140-148) mmol/L Potassium 4.0 (3.6-5.2) mmol/L Chloride 105 (100-108) mmol/L Carbon Dioxide 25 (21-32) mmol/L Anion Gap 9.9 (5.0-14.0) mmol/L BUN 16 (7-18) mg/dL Creatinine 1.0 (0.6-1.0) mg/dL Est Cr Clr Drug Dosing 37.60 mL/min Estimated GFR (MDRD) 55 L (>60) Glucose 137 H (74-106) mg/dL POC Glucose (74-106) MG/DL Calcium 8.2 L (8.5-10.1) mg/dL Total Bilirubin (0.2-1.0) mg/dL AST (15-37) U/L ALT (12-78) U/L Alkaline Phosphatase (46-116) U/L Total Protein (6.4-8.2) g/dL Albumin (3.4-5.0) g/dL Globulin (2.3-3.5) g/dL Albumin/Globulin Ratio (1.2-2.2) Urine Color (YELLOW) Urine Appearance (CLEAR) Urine pH (5.0-8.0) Ur Specific [place] (1.008-1.030) Urine Protein (NEGATIVE) mg/dL Urine Glucose (UA) (NEGATIVE) mg/dL Urine Ketones (NEGATIVE) mg/dL Urine Occult Blood (NEGATIVE) Urine Nitrite (NEGATIVE) Urine Bilirubin (NEGATIVE) Urine Urobilinogen (0.2-1.0) EU/dL Ur Leukocyte Esterase (NEGATIVE) Urine RBC (0-5) Urine WBC (0-5) Ur Epithelial Cells Amorphous Sediment Urine Bacteria Urine Mucus Med Orders - Current: Current Medications Acetaminophen (Acetaminophen 325 Mg Tab) 650 mg PO Q4H PRN PRN Reason: Pain (Mild 1-3)/fever Last Admin: 09/23/20 05:51 Dose: 650 mg Documented by: Albuterol (Albuterol 0.083% 2.5 Mg/3 Ml Neb Soln) 2.5 mg NEB Q4H PRN PRN Reason: Shortness Of Breath/wheezing Albuterol/Ipratropium (Albuterol/Ipratropium 3.0-0.5 Mg/3 Ml Neb Soln) 3 ml NEB QID PRN PRN Reason: Shortness Of Breath/wheezing Bisacodyl (Bisacodyl 5 Mg Tab) 5 mg PO DAILY PRN PRN Reason: Constipation Bupropion HCl (Bupropion 150 Mg Tab.Sr (Ptom)) 150 mg PO BID [facility] Last Admin: 09/23/20 08:59 Dose: 150 mg Documented by: Docusate Sodium (Docusate Sodium 100 Mg Cap) 100 mg PO BID PRN PRN Reason: Constipation Gabapentin (Gabapentin 300 Mg Cap (Ptom)) 600 mg PO BEDTIME [facility] Sodium Chloride (Normal Saline) 1,000 mls @ 100 mls/hr IV ASDIRECTED [facility] Last Admin: 09/23/20 05:02 Dose: 100 mls/hr Documented by: Montelukast Sodium (Montelukast 10 Mg Tab (Ptom)) 10 mg PO BEDTIME [facility] Ondansetron HCl (Ondansetron 4 Mg Tab.Dis) 4 mg PO Q6H PRN PRN Reason: Nausea able to take PO Ondansetron HCl (Ondansetron 4 Mg/2 Ml Sdv) 4 mg IV Q4H PRN PRN Reason: Nausea/Vomiting Oxycodone HCl (Oxycodone 5 Mg Tab) 5 mg PO Q4H PRN PRN Reason: Pain (moderate 4-6) Pantoprazole Sodium (Pantoprazole 40 Mg Tab.Cr (Ptom)) 40 mg PO BIDAC [facility] Last Admin: 09/23/20 08:57 Dose: 40 mg Documented by: Verapmil 40mg Tab ( (Ptom)) 0 each PO TID [facility] Last Admin: 09/23/20 08:58 Dose: 1 each Documented by: Trazodone HCl (Trazodone 50 Mg Tab (Ptom)) 50 mg PO BEDTIME [facility] Triamcinolone Acetonide (Triamcinolone Acetonide 0.1% Crm 15 Gm Tube) 0 gm TOP TID [facility] Last Admin: 09/23/20 08:59 Dose: Not Given Documented by: Discontinued Medications Bupropion HCl (Bupropion 150 Mg Tab.Sr) 150 mg PO BID [facility] Last Admin: 09/22/20 21:16 Dose: 150 mg Documented by: Gabapentin (Gabapentin 300 Mg Cap) 600 mg PO BEDTIME [facility] Last Admin: 09/22/20 21:22 Dose: 600 mg Documented by: Sodium Chloride (Normal Saline) 1,000 mls @ 300 mls/hr IV ASDIRECTED [facility] Last Admin: 09/22/20 17:48 Dose: 300 mls/hr Documented by: Montelukast Sodium (Montelukast 10 Mg Tab) 10 mg PO BEDTIME [facility] Last Admin: 09/22/20 21:17 Dose: 10 mg Documented by: Pantoprazole Sodium (Pantoprazole 40 Mg Tab.Cr) 40 mg PO BID [facility] Last Admin: 09/22/20 21:17 Dose: 40 mg Documented by: Trazodone HCl (Trazodone 50 Mg Tab) 50 mg PO BEDTIME [facility] Last Admin: 09/22/20 21:16 Dose: 50 mg Documented by: Verapamil HCl (Verapamil 80 Mg Tab) 20 mg PO TID [facility] Last Admin: 09/22/20 21:15 Dose: 20 mg Documented by:
[2020-09-23] MEDS ORDERED: Gabapentin 300 MG Cap (PTOM) PO SCH (21:00)
[2020-09-23] MEDS ORDERED: traZODone 50 MG Tab (PTOM) PO SCH (21:00)
[2020-09-23] MEDS ORDERED: Montelukast 10 MG Tab (PTOM) PO SCH (21:00)
== END 2020-09-23 09:50 | disposition home or self-care (01) ==
LOC: JP.ED 16:50 → JP.ICU 18:55
PROVIDERS: ADMIT Internal Medicine; ATTEND Internal Medicine
DX: R53.1 Weakness (principal); S00.83XA Contusion of other part of head, initial encounter; E11.22 Type 2 diabetes mellitus with diabetic chronic kidney disease; M19.90 Unspecified osteoarthritis, unspecified site; I12.9 Hypertensive chronic kidney disease with stage 1 through stage 4 chronic kidney disease, or unspecified chronic kidney disease; N18.31 Chronic kidney disease, stage 3a; E78.00 Pure hypercholesterolemia, unspecified; J44.9 Chronic obstructive pulmonary disease, unspecified; E66.9 Obesity, unspecified; Z68.35 Body mass index [BMI] 35.0-35.9, adult; Z88.6 Allergy status to analgesic agent; Z91.041 Radiographic dye allergy status; Z88.8 Allergy status to other drugs, medicaments and biological substances; Z79.82 Long term (current) use of aspirin; Z79.84 Long term (current) use of oral hypoglycemic drugs; Z79.899 Other long term (current) drug therapy; Z98.890 Other specified postprocedural states; W19.XXXA Unspecified fall, initial encounter; Y92.009 Unspecified place in unspecified non-institutional (private) residence as the place of occurrence of the external cause
CPT/HCPCS: 36415; 70450; 80048; 80053; 81001; 82962; 85025; 85730; 93005; 94762; 99283; 99285-25; A9270-GY; G0378; J7030

== ENCOUNTER 2020-10-14 03:37 | Emergency (ER) | payer MEDICARE ==
[2020-10-14 04:02] VITALS: BP 146/68; PULSE 78
--- NOTE | 2020-10-14 04:21 | EDM.PDOC ---
ED HPI GENERAL MEDICAL PROBLEM - General Chief Complaint: General Stated Complaint: [facility] Time Seen by Provider: 10/14/20 04:05 Source of Information: Reports: Patient, EMS History Limitations: Reports: No Limitations - History of Present Illness INITIAL COMMENTS - FREE TEXT/NARRATIVE: 70-year-old female that has been falling more frequently, fell 3 weeks ago onto her left side. Since that time she has been having some intermittent pain in her left abdomen and flank area, she has hydrocodone for pain control. She has difficulty laying on her left side. Tonight she did not want to take her pain medicine, I am unsure why. She was having some pain in her left side and decided to call the ambulance to come in and "get a picture". Its not hurting worse than usual, no fevers or chills, no nausea or vomiting, I really could not get her to explain why she came in tonight 3 weeks after falling. She has not been seen for this fall. When EMS arrived to the house she walked to the door and walked to the ambulance. On arrival she got off the EMS cart, walked to the hospital bed and got up onto the bed without much difficulty. Onset: Other Duration: Week(s): (3 weeks ago) Location: Reports: Abdomen (Left abdomen) Associated Symptoms: Reports: Weakness (Weakness is chronic, seems to be getting somewhat worse). Denies: Chest Pain, Cough, Loss of Appetite, Nausea/Vomiting, Shortness of Breath left flank Pain Score (Numeric/FACES): 10 - Related Data Allergies Allergy/AdvReac Type Severity Reaction Status Date / Time codeine Allergy Intermediate Rash Verified 10/14/20 03:49 iodine Allergy Intermediate Rash Verified 10/14/20 03:49 Iodinated Contrast Media Allergy Hives Verified 10/14/20 03:49 [Iodinated Contrast Media - IV Dye] isosorbide [Isosorbide] AdvReac Cough Verified 10/14/20 03:49 midazolam HCl [From Versed] AdvReac Confusion Verified 10/14/20 03:49 NSAIDS (Non-Steroidal AdvReac Renal Verified 10/14/20 03:49 Anti-Inflamma Failure Home Meds: Home Meds Albuterol Sulfate [Proair Hfa] 2 puff IH QID PRN 04/25/13 [History] Aspirin [Adult Low Dose Aspirin EC] 81 mg PO DAILY 04/25/13 [History] Cholecalciferol (Vitamin D3) [Vitamin D3] 1,000 units PO BID 04/25/13 [History] Loratadine [Allergy] 10 mg PO ACBRK PRN 04/25/13 [History] Montelukast [Singulair] 10 mg PO BEDTIME 04/25/13 [History] metFORMIN [Glucophage] 1,000 mg PO PCBREAKFAST 04/25/13 [History] polyethylene glycoL 3350 [MiraLAX] 17 gm PO DAILY PRN 04/25/13 [History] traZODone 50 mg PO BEDTIME 04/25/13 [History] Verapamil [Calan] 20 mg PO TID 10/08/13 [History] Oxybutynin Chloride 5 mg PO TID 08/18/14 [History] Gabapentin [Neurontin] 600 mg PO BEDTIME 02/02/15 [History] Pantoprazole [ProTONIX] 40 mg PO BID 04/22/15 [History] Acetaminophen [Tylenol Arthritis] 650 mg PO Q8H PRN 05/10/16 [History] Triamcinolone Acetonide [Triamcinolone Acetonide 0.1% Crm] 1 applic TOP TID 12/26/17 [History] atorvaSTATin [Lipitor] 10 mg PO BEDTIME 01/12/19 [History] buPROPion HCL [Wellbutrin SR] 150 mg PO BID 01/12/19 [History] Lactobacillus Rhamnosus GG [Culturelle] 1 cap PO BID #60 cap 06/11/19 [Rx] Acetaminophen/HYDROcodone [[place] 325-5 MG] 1 tab PO ASDIRECTED PRN 10/14/20 [History] Past Medical History HEENT History: Reports: Cataract, Hard of Hearing, Impaired Vision, Macular Degeneration Other HEENT History: wears glasses Cardiovascular History: Reports: Arrhythmia, High Cholesterol, Hypertension, SOB on Exertion Respiratory History: Reports: Asthma, COPD, SOB Gastrointestinal History: Reports: GERD, Hiatal Hernia Other Gastrointestinal History: Barretts esoph Genitourinary History: Reports: Renal Disease, Urinary Incontinence Other Genitourinary History: stage 3 kidney [facility] History: Reports: Musculoskeletal History: Reports: Arthritis, Fracture, Neck Pain, Chronic, Osteoarthritis Neurological History: Reports: Headaches, Chronic Other Neuro History: blood clot in brain (2016) resolved on it's own Psychiatric History: Reports: Anxiety, Mood Swings Endocrine/Metabolic History: Reports: Diabetes, Type II, Obesity/BMI 30+, Vitamin D Deficiency Other Endocrine/Metabolic History: BS this am 100 Hematologic History: Reports: Anemia, Blood Transfusion(s) Dermatologic History: Reports: Eczema - Infectious Disease History Infectious Disease History: Reports: Chicken Pox - Past Surgical History Head Surgeries/Procedures: Reports: None HEENT Surgical History: Reports: Cataract Surgery, Eye Surgery Cardiovascular Surgical History: Reports: None Other Cardiovascular Surgeries/Procedures: cardioverson x2 Respiratory Surgical History: Reports: None GI Surgical History: Reports: Colonoscopy, EGD, Esophageal Dilatation, Hernia Repair/Other, Debi Fundoplication Other GI Surgeries/Procedures: esophageal ablation. lap debi Female Surgical History: Reports: Section Other Female Surgeries/Procedures: hx of kidney failure-being followed by nephrology Endocrine Surgical History: Reports: None Neurological Surgical History: Reports: None Musculoskeletal Surgical History: Reports: Shoulder Surgery, Other (See Below) Other Musculoskeletal Surgeries/Procedures:: R shoulder surgery Dermatological Surgical History: Reports: None Social & Family History - Family History Family Medical History: No Pertinent Family History - Tobacco Use Tobacco Use Status *Q: Never Tobacco User - Caffeine Use Caffeine Use: Reports: Soda - Recreational Drug Use Recreational Drug Use: No - Living Situation & Occupation Living situation: Reports: , Alone (lives alone in apartment in [place], [place]. has 2 Daughters Jocy and Lynette who live close by.) Occupation: Retired ED ROS GENERAL - Review of Systems Review Of Systems: See Below Constitutional: Denies: Fever, Chills Respiratory: Denies: Shortness of Breath Cardiovascular: Denies: Chest Pain GI/Abdominal: Reports: Abdominal Pain, Other (Denies constipation from medication). 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 There is no bruising of the skin. She has no tenderness of palpation of the lower ribs) Neurological: Alert, Oriented Psychiatric: Normal Affect, Normal Mood Course - Vital Signs Last Recorded V/S: Last Vital Signs Temp 98.2 F 10/14/20 04:02 Pulse 78 10/14/20 04:02 Resp 17 10/14/20 04:02 BP 146/68 H 10/14/20 04:02 Pulse Ox 94 L 10/14/20 04:02 - Re-Assessments/Exams Free Text/Narrative Re-Assessment/Exam: 10/14/20 04:[address] of the abdomen and pelvis was obtained to rule out diverticulitis or some other reason for her pain as I think it would be risky to just assume it was from the fall. 10/14/20 17:22 Patient remained relatively asymptomatic and comfortable while in the emergency room, CT showed no reason for abdominal pain. Patient was reassured and will continue current treatment. She can recheck with her primary care next week to consider physical therapy or further evaluation. Departure - Departure Time of Disposition: 05:55 Disposition: Home, Self-Care 01 Clinical Impression: Abdominal wall contusion Qualifiers: Encounter type: initial encounter Qualified Code(s): S30.1XXA - Contusion of abdominal wall, initial encounter - Discharge Information Instructions: Contusion, [id number] Referrals: PCP,None [Primary Care Provider] - Forms: ED Department Discharge Care Plan Goals: Use your pain medicine as directed, a heating pad may be helpful and increase activity as tolerated. Consider rechecking with Dr. Parra if pain is persistent for another 1 to 2 weeks as you may need physical therapy or some other kind of treatment. Sepsis Event Note (ED) - Evaluation Sepsis Screening Result: No Definite Risk
--- NOTE | 2020-10-14 05:34 | CRLCT ---
INDICATION: Left lower quadrant abdominal pain. COMPARISON: None available TECHNIQUE: CT examination of the abdomen and pelvis was performed without contrast enhancement using 3 mm thick axial sections from the lung bases through the pubic symphysis. Oral contrast was not administered. Please note that all CT scans at this facility use dose modulation, iterative reconstruction, and/or weight-based dosing when appropriate to reduce radiation dose to as low as reasonably achievable. FINDINGS: In the abdomen, the unenhanced liver, spleen, pancreas, and adrenals are normal in appearance. Surgical clips are seen posterior to the gastric fundus and anterior to the pancreatic tail, of uncertain significance. The unenhanced kidneys are normal in appearance. There is minimal cholelithiasis, with a few tiny dependent calculi in the gallbladder. There is no sign of acute cholecystitis, with no sign of gallbladder wall thickening or pericholecystic fluid. The abdominal aorta is normal in caliber with no sign of dilatation. There is no sign of retroperitoneal mass or adenopathy. There is a small hiatal hernia. The rest of the stomach, loops of small bowel, and colon in the abdomen are otherwise normal in appearance. There is a lenticular fluid collection located in the left lower anterior abdominal wall subcutaneous fat measuring 3.7 x 2.2 x 3.0 centimeters, possibly from subcutaneous injection. In the pelvis, the appendix is nonvisualized, but there is no sign of an inflammatory process in the area of the appendix. The loops of small bowel and colon in the pelvis are normal in appearance. The uterus and adnexal regions are normal in appearance. The urinary bladder is normal in appearance. There is no sign of pelvic or inguinal mass or adenopathy. There is no sign of free air or free fluid in the abdomen or pelvis. There is mild patchy density in the lateral left lung base related to mild eventration of the left hemidiaphragm. The lung bases are otherwise clear. Moderate hypertrophic changes are scattered throughout the inferior thoracic and lumbar spine consistent with patient`s age. IMPRESSION: Nothing seen to explain the patient`s left lower quadrant pain. No sign of diverticulosis or diverticulitis. No sign of any abnormality of the left urinary system or of the left adnexal region. CT of the abdomen shows minimal cholelithiasis with no sign of acute cholecystitis. Small hiatal hernia. Lenticular fluid collection located in the anterior left inferior abdominal wall measuring up to 3.7 centimeters in diameter, possibly from subcutaneous injection. Normal CT of the pelvis without contrast. Please note that all CT scans at this facility use dose modulation, iterative reconstruction, and/or weight-based dosing when appropriate to reduce radiation dose to as low as reasonably achievable. Dictated by Terry Lujan MD @ Oct 14 2020 5:25AM Signed by Dr. Terry Lujan @ Oct 14 2020 5:32AM
== END 2020-10-14 06:12 | disposition home or self-care (01) ==
LOC: JP.ED 03:37
DX: S30.1XXA Contusion of abdominal wall, initial encounter (principal); E78.00 Pure hypercholesterolemia, unspecified; K21.9 Gastro-esophageal reflux disease without esophagitis; I12.9 Hypertensive chronic kidney disease with stage 1 through stage 4 chronic kidney disease, or unspecified chronic kidney disease; N18.30 Chronic kidney disease, stage 3 unspecified; M19.90 Unspecified osteoarthritis, unspecified site; J44.9 Chronic obstructive pulmonary disease, unspecified; E11.22 Type 2 diabetes mellitus with diabetic chronic kidney disease; Z88.5 Allergy status to narcotic agent; Z91.048 Other nonmedicinal substance allergy status; Z91.041 Radiographic dye allergy status; Z88.4 Allergy status to anesthetic agent; Z88.8 Allergy status to other drugs, medicaments and biological substances; Z79.82 Long term (current) use of aspirin; Z79.84 Long term (current) use of oral hypoglycemic drugs; Z79.899 Other long term (current) drug therapy; W19.XXXA Unspecified fall, initial encounter
CPT/HCPCS: 74176; 99284-25

== ENCOUNTER 2020-10-15 15:16 | Emergency (ER) | payer MEDICARE ==
[2020-10-15 15:37] VITALS: BP 174/91; PULSE 90
[2020-10-15] MEDS ORDERED: Acetaminophen 325 MG Tab PO ONE (15:59)
--- NOTE | 2020-10-15 16:01 | EDM.PDOC ---
ED HPI GENERAL MEDICAL PROBLEM - General Chief Complaint: Abdominal Pain Stated Complaint: PAIN IN CHEST Time Seen by Provider: 10/15/20 15:53 Source of Information: Reports: Patient, RN Notes Reviewed History Limitations: Reports: No Limitations - History of Present Illness INITIAL COMMENTS - FREE TEXT/NARRATIVE: 70-year-old female presents emergency department with a complaint of cough and left hip pain, she states spray the cough for last couple of days no fevers no shortness of breath hip pain is been going on for about 3 weeks it seems to be progressively getting worse she denies any trauma - Related Data Allergies Allergy/AdvReac Type Severity Reaction Status Date / Time codeine Allergy Intermediate Rash Verified 10/15/20 15:43 iodine Allergy Intermediate Rash Verified 10/15/20 15:43 acetaminophen [From [place]] Allergy Confusion Verified 10/15/20 15:44 hydrocodone [From [place]] Allergy Confusion Verified 10/15/20 15:44 Iodinated Contrast Media Allergy Hives Verified 10/15/20 15:43 [Iodinated Contrast Media - IV Dye] isosorbide [Isosorbide] AdvReac Cough Verified 10/15/20 15:43 midazolam HCl [From [facility]ed] AdvReac Confusion Verified 10/15/20 15:43 NSAIDS (Non-Steroidal AdvReac Renal Verified 10/15/20 15:43 Anti-Inflamma Failure Home Meds: Home Meds Albuterol Sulfate [Proair Hfa] 2 puff IH QID PRN 04/25/13 [History] Aspirin [Adult Low Dose Aspirin EC] 81 mg PO DAILY 04/25/13 [History] Cholecalciferol (Vitamin D3) [Vitamin D3] 1,000 units PO BID 04/25/13 [History] Loratadine [Allergy] 10 mg PO ACBRK PRN 04/25/13 [History] Montelukast [Singulair] 10 mg PO BEDTIME 04/25/13 [History] metFORMIN [Glucophage] 1,000 mg PO PCBREAKFAST 04/25/13 [History] polyethylene glycoL 3350 [MiraLAX] 17 gm PO DAILY PRN 04/25/13 [History] traZODone 50 mg PO BEDTIME 04/25/13 [History] Verapamil [Calan] 20 mg PO TID 10/08/13 [History] Oxybutynin Chloride 5 mg PO TID 08/18/14 [History] Gabapentin [Neurontin] 600 mg PO BEDTIME 02/02/15 [History] Pantoprazole [ProTONIX] 40 mg PO BID 04/22/15 [History] Acetaminophen [Tylenol Arthritis] 650 mg PO Q8H PRN 05/10/16 [History] Triamcinolone Acetonide [Triamcinolone Acetonide 0.1% Crm] 1 applic TOP TID 12/26/17 [History] atorvaSTATin [Lipitor] 10 mg PO BEDTIME 01/12/19 [History] buPROPion HCL [Wellbutrin SR] 150 mg PO BID 01/12/19 [History] Lactobacillus Rhamnosus GG [Culturelle] 1 cap PO BID #60 cap 06/11/19 [Rx] Past Medical History HEENT History: Reports: Cataract, Hard of Hearing, Impaired Vision, Macular Degeneration Other HEENT History: wears glasses Cardiovascular History: Reports: Arrhythmia, High Cholesterol, Hypertension, SOB on Exertion Respiratory History: Reports: Asthma, COPD, SOB Gastrointestinal History: Reports: GERD, Hiatal Hernia Other Gastrointestinal History: Barretts esoph Genitourinary History: Reports: Renal Disease, Urinary Incontinence Other Genitourinary History: stage 3 kidney [employer] History: Reports: Musculoskeletal History: Reports: Arthritis, Fracture, Neck Pain, Chronic, Osteoarthritis Neurological History: Reports: Headaches, Chronic Other Neuro History: blood clot in brain (2016) resolved on it's own Psychiatric History: Reports: Anxiety, Mood Swings Endocrine/Metabolic History: Reports: Diabetes, Type II, Obesity/BMI 30+, Vitamin D Deficiency Other Endocrine/Metabolic History: BS this am 100 Hematologic History: Reports: Anemia, Blood Transfusion(s) Dermatologic History: Reports: Eczema - Infectious Disease History Infectious Disease History: Reports: Chicken Pox - Past Surgical History Head Surgeries/Procedures: Reports: None HEENT Surgical History: Reports: Cataract Surgery, Eye Surgery Cardiovascular Surgical History: Reports: Other (See Below) Other Cardiovascular Surgeries/Procedures: cardioverson x2 Respiratory Surgical History: Reports: None GI Surgical History: Reports: Colonoscopy, EGD, Esophageal Dilatation, Hernia Repair/Other, Doc Fundoplication Other GI Surgeries/Procedures: esophageal ablation. lap doc Female Surgical History: Reports: Section Other Female Surgeries/Procedures: hx of kidney failure-being followed by nephrology Endocrine Surgical History: Reports: None Neurological Surgical History: Reports: None Musculoskeletal Surgical History: Reports: Shoulder Surgery, Other (See Below) Other Musculoskeletal Surgeries/Procedures:: R shoulder surgery Dermatological Surgical History: Reports: None Social & Family History - Family History Family Medical History: No Pertinent Family History - Tobacco Use Tobacco Use Status *Q: Never Tobacco User Second Hand Smoke Exposure: No - Caffeine Use Caffeine Use: Reports: Soda - Recreational Drug Use Recreational Drug Use: No - Living Situation & Occupation Living situation: Reports: , Alone (lives alone in apartment in [place], [place]. has 2 Daughters Jocy and Lynette who live close by.) Occupation: Retired ED ROS GENERAL - Review of Systems Review Of Systems: See Below Constitutional: Reports: No Symptoms HEENT: Reports: No Symptoms Respiratory: Reports: Cough. Denies: Shortness of Breath Cardiovascular: Reports: No Symptoms GI/Abdominal: Reports: No Symptoms : Reports: No Symptoms Musculoskeletal: Reports: Joint Pain (Hip pain) ED EXAM, GENERAL - Physical Exam Exam: See Below Free Text/Narrative:: Examination of the left hip she is tender over the greater trochanter but there is no tenderness with internal and external rotation flexion and extension of the hip joint itself Exam Limited By: No Limitations General Appearance: Alert, WD/WN, No Apparent Distress Respiratory/Chest: No Respiratory Distress, Lungs Clear, Normal Breath Sounds, No Accessory Muscle Use, Chest Non-Tender Cardiovascular: Regular Rate, Rhythm, No Murmur GI/Abdominal: Soft, Non-Tender Course - Vital Signs Last Recorded V/S: Last Vital Signs Temp 97.0 F 10/15/20 15:48 Pulse 90 10/15/20 15:48 Resp 16 10/15/20 15:48 BP 174/91 H 10/15/20 15:48 Pulse Ox 96 10/15/20 15:48 - Orders/Labs/Meds Orders: Active Orders 24 hr Category Date Time Status Notify Provider Consults [RC] ASDIRECTED Care 10/15/20 16:58 Ordered Consult to Orthopedic Clinic [CONS] Routine Cons 10/15/20 16:58 Ordered Consult to Physician [CONS] Routine Cons 10/15/20 16:58 Ordered Chest 2V [CR] Stat Exams 10/15/20 15:56 Taken Hip Min 2V or 3V Lt [CR] Stat Exams 10/15/20 15:56 Taken Isolation [COMM] Stat Oth 10/15/20 15:58 Ordered Labs: Laboratory Tests 10/15/20 10/15/20 10/15/20 Range/Units 16:10 16:11 16:11 WBC 9.3 (4.5-11.0) K/uL RBC 4.20 (3.30-5.50) M/uL Hgb 12.3 (12.0-15.0) g/dL Hct 38.9 (36.0-48.0) % MCV 93 (80-98) fL MCH 29 (27-31) pg MCHC 32 (32-36) % Plt Count 399 (150-400) K/uL Neut % (Auto) 67 H (36-66) % Lymph % (Auto) 15 L (24-44) % Williams % (Auto) 15 H (2-6) % Eos % (Auto) 2 (2-4) % Baso % (Auto) 1 (0-1) % Sodium 139 L (140-148) mmol/L Potassium 4.7 (3.6-5.2) mmol/L Chloride 99 L (100-108) mmol/L Carbon Dioxide 28 (21-32) mmol/L Anion Gap 16.7 H (5.0-14.0) mmol/L BUN 12 (7-18) mg/dL Creatinine 1.1 H (0.6-1.0) mg/dL Est Cr Clr Drug Dosing 34.18 mL/min Estimated GFR (MDRD) 49 L (>60) Glucose 107 H (74-106) mg/dL Calcium 9.1 (8.5-10.1) mg/dL Influenza Type A RNA Negative (NEGATIVE) RSV RNA (INAAT) Negative (NEGATIVE) Influenza Type B RNA Negative (NEGATIVE) SARS-CoV-2 RNA (CHAYITO) Negative (NEGATIVE) Meds: Medications Discontinued Medications Generic Name Dose Route Start Last Admin Trade Name Freq PRN Reason Stop Dose Admin Acetaminophen 650 mg 10/15/20 15:59 10/15/20 16:06 Acetaminophen 325 Mg Tab PO 10/15/20 16:00 650 mg NOW ONE Administration Departure - Departure Time of Disposition: 16:59 Disposition: Home, Self-Care 01 Condition: Fair Clinical Impression: Left hip pain - Discharge Information Instructions: Hip Pain Referrals: Kolby Parra MD [Primary Care Provider] - Forms: ED Department Discharge Additional Instructions: Try the Ultram as needed for pain control, the orthopedics clinic will call you for an appointment time, call return to the emergency department worsening of symptoms Sepsis Event Note (ED) - Evaluation Sepsis Screening Result: No Definite Risk - Focused Exam Vital Signs: Vital Signs Temp Pulse Resp BP Pulse Ox 10/15/20 15:48 97.0 F 90 16 174/91 H 96 10/15/20 15:36 97.0 F 90 16 174/91 H 96 - My Orders Last 24 Hours: My Active Orders 10/15/20 15:56 Chest 2V [CR] Stat Hip Min 2V or 3V Lt [CR] Stat 10/15/20 15:58 Isolation [COMM] Stat 10/15/20 16:58 Notify Provider Consults [RC] ASDIRECTED Consult to Orthopedic Clinic [CONS] Routine Consult to Physician [CONS] Routine - Assessment/Plan Last 24 Hours: My Active Orders 10/15/20 15:56 Chest 2V [CR] Stat Hip Min 2V or 3V Lt [CR] Stat 10/15/20 15:58 Isolation [COMM] Stat 10/15/20 16:58 Notify Provider Consults [RC] ASDIRECTED Consult to Orthopedic Clinic [CONS] Routine Consult to Physician [CONS] Routine Plan: Assessment Acuity = acute Site and laterality = left hip pain Etiology = suspicious for osteoarthritis Manifestations = none Location of injury = Home Lab values = I do not appreciate any acute process in the x-rays official read radiologist pending Plan She received some relief from the Tylenol provided because of her kidney dysfunction elected to try Ultram 50 mg 1 tab p.o. every 8 hours as needed also consultation with orthopedics set up for next week This note was dictated using RPO recognition software please call with any questions on syntax or grammar.
[2020-10-15 16:50] LABS: CORONAVIRUS COVID-19 NAA NEGATIVE (NEGATIVE)
--- NOTE | 2020-10-17 10:30 | CR ---
CHEST: 2 view CLINICAL HISTORY:Cough COMPARISON:Portable 2019 FINDINGS: There is less than optimal inspiration exaggerating lung markings. The heart size, pulmonary vascularity and hilar structures are normal. No infiltrate effusion or pneumothorax is seen. There are atherosclerotic changes in the aorta. IMPRESSION: No acute cardiopulmonary process.
--- NOTE | 2020-10-17 11:59 | CR ---
Hip Min 2V or 3V Lt CLINICAL HISTORY: Pain, chronic FINDINGS: Joint space shows some very mild narrowing. Articular surfaces are smooth. No fracture or osseous lesion seen IMPRESSION: Mild joint space narrowing
== END 2020-10-15 17:09 | disposition home or self-care (01) ==
LOC: JP.ED 15:16
DX: M25.552 Pain in left hip (principal); E78.00 Pure hypercholesterolemia, unspecified; I10 Essential (primary) hypertension; J44.9 Chronic obstructive pulmonary disease, unspecified; K21.9 Gastro-esophageal reflux disease without esophagitis; M19.90 Unspecified osteoarthritis, unspecified site; E11.9 Type 2 diabetes mellitus without complications; E66.9 Obesity, unspecified; Z68.34 Body mass index [BMI] 34.0-34.9, adult; Z20.822 Contact with and (suspected) exposure to COVID-19; Z88.5 Allergy status to narcotic agent; Z91.048 Other nonmedicinal substance allergy status; Z88.6 Allergy status to analgesic agent; Z91.041 Radiographic dye allergy status; Z88.8 Allergy status to other drugs, medicaments and biological substances; Z88.4 Allergy status to anesthetic agent; Z79.82 Long term (current) use of aspirin; Z79.84 Long term (current) use of oral hypoglycemic drugs; Z79.899 Other long term (current) drug therapy
CPT/HCPCS: 0241U; 36415; 71046; 73502; 80048; 85025; 99283; A9270

== ENCOUNTER 2021-02-11 17:00 | Emergency (ER) | payer MEDICARE ==
[2021-02-11 17:22] VITALS: BP 147/71; PULSE 87
--- NOTE | 2021-02-11 17:40 | EDM.PDOC ---
ED HPI GENERAL MEDICAL PROBLEM - General Chief Complaint: Upper Extremity Injury/Pain Stated Complaint: FELL AND HURT RIGHT ARM Time Seen by Provider: 02/11/21 17:35 Source of Information: Reports: Patient History Limitations: Reports: No Limitations - History of Present Illness INITIAL COMMENTS - FREE TEXT/NARRATIVE: 70-year-old female, lives independently stumbled and fell using her walker. She fell onto her left arm. She now has pain in the upper arm near the shoulder, and is unable to move the arm. She also has some mild to moderate pain around the elbow with a superficial abrasion. No other injury. Onset: Sudden Duration: Hour(s): (About 1 hour ago) Location: Reports: Upper Extremity, Left Quality: Reports: Sharp, Stabbing Improves with: Reports: Rest Worsens with: Reports: Movement Associated Symptoms: Reports: No Other Symptoms. Denies: Chest Pain, Cough, Shortness of Breath left arm Pain Score (Numeric/FACES): 10 - Related Data Allergies Allergy/AdvReac Type Severity Reaction Status Date / Time codeine Allergy Intermediate Rash Verified 10/15/20 15:43 iodine Allergy Intermediate Rash Verified 10/15/20 15:43 acetaminophen [From [place]] Allergy Confusion Verified 10/15/20 15:44 hydrocodone [From [place]] Allergy Confusion Verified 10/15/20 15:44 Iodinated Contrast Media Allergy Hives Verified 10/15/20 15:43 [Iodinated Contrast Media - IV Dye] isosorbide [Isosorbide] AdvReac Cough Verified 10/15/20 15:43 midazolam HCl [From [facility]ed] AdvReac Confusion Verified 10/15/20 15:43 NSAIDS (Non-Steroidal AdvReac Renal Verified 10/15/20 15:43 Anti-Inflamma Failure Home Meds: Home Meds Albuterol Sulfate [Proair Hfa] 2 puff IH QID PRN 04/25/13 [History] Aspirin [Adult Low Dose Aspirin EC] 81 mg PO DAILY 04/25/13 [History] Cholecalciferol (Vitamin D3) [Vitamin D3] 1,000 units PO BID 04/25/13 [History] Loratadine [Allergy] 10 mg PO ACBRK PRN 04/25/13 [History] Montelukast [Singulair] 10 mg PO BEDTIME 04/25/13 [History] metFORMIN [Glucophage] 1,000 mg PO PCBREAKFAST 04/25/13 [History] polyethylene glycoL 3350 [MiraLAX] 17 gm PO DAILY PRN 04/25/13 [History] traZODone 50 mg PO BEDTIME 04/25/13 [History] Verapamil [Calan] 20 mg PO TID 10/08/13 [History] Gabapentin [Neurontin] 600 mg PO BEDTIME 02/02/15 [History] Pantoprazole [ProTONIX] 40 mg PO BID 04/22/15 [History] Acetaminophen [Tylenol Arthritis] 650 mg PO Q8H PRN 05/10/16 [History] Triamcinolone Acetonide [Triamcinolone Acetonide 0.1% Crm] 1 applic TOP TID 12/26/17 [History] atorvaSTATin [Lipitor] 10 mg PO BEDTIME 01/12/19 [History] buPROPion HCL [Wellbutrin SR] 150 mg PO BID 01/12/19 [History] Lactobacillus Rhamnosus GG [Culturelle] 1 cap PO BID #60 cap 06/11/19 [Rx] Albuterol/Ipratropium [DuoNeb 3.0-0.5 MG/3 ML] 3 ml INH Q4H PRN 10/17/20 [History] Citalopram Hydrobromide [Celexa] 40 mg PO DAILY 10/17/20 [History] Tolterodine Tartrate [Detrol LA] 4 mg PO DAILY 10/17/20 [History] Urea [Urea 40% Crm] 1 applic TOP BID 10/17/20 [History] traMADol [Ultram] 50 mg PO Q8H PRN 11/15/20 [History] Past Medical History HEENT History: Reports: Cataract, Hard of Hearing, Impaired Vision, Macular Degeneration Other HEENT History: wears glasses Cardiovascular History: Reports: Arrhythmia, High Cholesterol, Hypertension, SOB on Exertion Respiratory History: Reports: Asthma, COPD, SOB Gastrointestinal History: Reports: GERD, Hiatal Hernia Other Gastrointestinal History: Barretts esoph Genitourinary History: Reports: Renal Disease, Urinary Incontinence Other Genitourinary History: stage 3 kidney [employer] History: Reports: Musculoskeletal History: Reports: Arthritis, Fracture, Neck Pain, Chronic, Osteoarthritis Other Musculoskeletal History: left hip pain Neurological History: Reports: Headaches, Chronic Other Neuro History: blood clot in brain (2016) resolved on it's own Psychiatric History: Reports: Anxiety, Mood Swings Endocrine/Metabolic History: Reports: Diabetes, Type II, Obesity/BMI 30+, Vitamin D Deficiency Other Endocrine/Metabolic History: BS this am 100 Hematologic History: Reports: Anemia, Blood Transfusion(s) Immunologic History: Reports: None Oncologic (Cancer) History: Reports: None Dermatologic History: Reports: Eczema - Infectious Disease History Infectious Disease History: Reports: Chicken Pox - Past Surgical History Head Surgeries/Procedures: Reports: None HEENT Surgical History: Reports: Cataract Surgery, Eye Surgery Cardiovascular Surgical History: Reports: Other (See Below) Other Cardiovascular Surgeries/Procedures: cardioverson x2 Respiratory Surgical History: Reports: None GI Surgical History: Reports: Colonoscopy, EGD, Esophageal Dilatation, Hernia Repair/Other, Doc Fundoplication Other GI Surgeries/Procedures: esophageal ablation. lap doc Female Surgical History: Reports: Section Other Female Surgeries/Procedures: hx of kidney failure-being followed by nephrology Endocrine Surgical History: Reports: None Neurological Surgical History: Reports: None Musculoskeletal Surgical History: Reports: Shoulder Surgery, Other (See Below) Other Musculoskeletal Surgeries/Procedures:: R shoulder surgery Dermatological Surgical History: Reports: None Social & Family History - Family History Family Medical History: No Pertinent Family History - Tobacco Use Tobacco Use Status *Q: Never Tobacco User - Caffeine Use Caffeine Use: Reports: Soda - Recreational Drug Use Recreational Drug Use: No - Living Situation & Occupation Living situation: Reports: , Alone (lives alone in apartment in [place], [place]. has 2 Daughters Jocy and Lynette who live close by.) Occupation: Retired Review of Systems - Review of Systems Review Of Systems: See Below Constitutional: Denies: Fever Respiratory: Reports: No Symptoms. Denies: Shortness of Breath Cardiovascular: Denies: Chest Pain GI/Abdominal: Reports: No Symptoms Genitourinary: Reports: No Symptoms Musculoskeletal: Reports: Other (See HPI) Skin: Reports: Other (Superficial abrasion on the left elbow, no bruising or erythema) Neurological: Reports: No Symptoms Psychiatric: Reports: No Symptoms ED EXAM, GENERAL - Physical Exam Exam: See Below Exam Limited By: No Limitations General Appearance: Alert, No Apparent Distress (While sitting still, she is in no distress but looks uncomfortable) Head: Atraumatic Neck: Supple, Non-Tender Respiratory/Chest: Lungs Clear Cardiovascular: Regular Rate, Rhythm GI/Abdominal: Soft, Non-Tender Extremities: Other (Clavicle is nontender until palpating the very lateral aspect and proximal humerus causes discomfort. No significant pain around the elbow or wrist.) Psychiatric: Normal Affect, Normal Mood Skin Exam: Other (Very superficial abrasion on the underside of the left elbow) Course - Vital Signs Last Recorded V/S: Last Vital Signs Temp 98.4 F 02/11/21 17:20 Pulse 87 02/11/21 17:20 Resp 18 02/11/21 17:20 BP 147/71 H 02/11/21 17:20 Pulse Ox 96 02/11/21 17:20 - Orders/Labs/Meds Orders: Active Orders 24 hr Category Date Time Status Humerus Lt [CR] Stat Exams 02/11/21 17:35 Taken Shoulder 1V Lt [CR] Stat Exams 02/11/21 18:29 Taken DME for Discharge [COMM] Stat Oth 02/11/21 18:32 Ordered Meds: Medications Discontinued Medications Generic Name Dose Route Start Last Admin Trade Name Freq PRN Reason Stop Dose Admin Sodium Chloride 1,000 mls @ 1,000 mls/hr 02/11/21 18:00 02/11/21 18:35 Normal Saline IV 1,000 mls/hr ASDIRECTED KARINE Administration Propofol 200 mg 02/11/21 17:50 02/11/21 18:38 Propofol 200 Mg/20 Ml Sdv IVPUSH 02/11/21 17:51 40 mg ONETIME ONE Administration - Re-Assessments/Exams Free Text/Narrative Re-Assessment/Exam: 02/11/21 17:39 A left humerus x-ray was obtained. 02/11/21 18:32 Humerus x-ray shows a anterior dislocation, no obvious fracture. Patient was prepared for reduction of the dislocated shoulder under propofol sedation. Consent was obtained, and after 40 mg of IV propofol the patient was appropriately sedated. Using countertraction the shoulder was reduced without complication, postreduction x-ray was obtained. 02/11/21 18:36 Post reduction x-ray looks good, patient was discharged with a sling that she sh ould wear the next couple of days then gradually increase activity as tolerated. If she continues to have significant pain or is unable to use her left arm after 4 to 5 days, she should recheck with her primary provider or orthopedics. Departure - Departure Time of Disposition: 19:13 Disposition: Home, Self-Care 01 Clinical Impression: Dislocation of left shoulder joint Qualifiers: Encounter type: initial encounter Qualified Code(s): S43.005A - Unspecified dislocation of left shoulder joint, initial encounter - Discharge Information Instructions: Shoulder Dislocation Referrals: Kolby Parra MD [Primary Care Provider] - Forms: ED Department Discharge Care Plan Goals: Use sling to rest arm for the next couple of days, and increase activity gradually and as tolerated. Ibuprofen will be helpful with discomfort, and consider rechecking in 4 to 5 days if not improving satisfactorily or unable to use your arm without significant pain. You can either recheck with your primary provider or call Dr. Parisi at the orthopedic clinic. Sepsis Event Note (ED) - Evaluation Sepsis Screening Result: No Definite Risk - My Orders Last 24 Hours: My Active Orders 02/11/21 17:35 Humerus Lt [CR] Stat 02/11/21 18:29 Shoulder 1V Lt [CR] Stat 02/11/21 18:32 DME for Discharge [COMM] Stat - Assessment/Plan Last 24 Hours: My Active Orders 02/11/21 17:35 Humerus Lt [CR] Stat 02/11/21 18:29 Shoulder 1V Lt [CR] Stat 02/11/21 18:32 DME for Discharge [COMM] Stat
[2021-02-11] MEDS ORDERED: Sodium Chloride 0.9% 1,000 ML IV SCH (18:00)
[2021-02-11] MEDS: Propofol 200 MG/20 ML SDV IVPUSH ONE ×2 (18:35→18:38)
--- NOTE | 2021-02-13 09:51 | CR ---
Humerus Lt CLINICAL HISTORY: Fall, pain FINDINGS: There is dislocation of the shoulder. There is some deformity of the humeral head.. IMPRESSION: Shoulder dislocation Proximal humeral fracture not excluded Humerus Lt CLINICAL HISTORY: Post reduction FINDINGS: There is been reduction of the previous shoulder dislocation. Nondisplaced fracture the proximal humerus is not excluded. 2 view study recommended when patient's condition allows Impression: Postreduction shoulder dislocation Proximal humeral fracture not excluded
== END 2021-02-11 19:14 | disposition home or self-care (01) ==
LOC: JP.ED 17:00
DX: S43.005A Unspecified dislocation of left shoulder joint, initial encounter (principal); J44.9 Chronic obstructive pulmonary disease, unspecified; E78.00 Pure hypercholesterolemia, unspecified; I12.9 Hypertensive chronic kidney disease with stage 1 through stage 4 chronic kidney disease, or unspecified chronic kidney disease; K21.9 Gastro-esophageal reflux disease without esophagitis; E11.22 Type 2 diabetes mellitus with diabetic chronic kidney disease; N18.30 Chronic kidney disease, stage 3 unspecified; E66.9 Obesity, unspecified; Z68.30 Body mass index [BMI] 30.0-30.9, adult; Z88.5 Allergy status to narcotic agent; Z91.041 Radiographic dye allergy status; Z88.8 Allergy status to other drugs, medicaments and biological substances; Z79.82 Long term (current) use of aspirin; Z79.84 Long term (current) use of oral hypoglycemic drugs; Z79.899 Other long term (current) drug therapy; W01.0XXA Fall on same level from slipping, tripping and stumbling without subsequent striking against object, initial encounter
CPT/HCPCS: 23650; 73020; 73060; 99152; 99283; J2704; J7030

== ENCOUNTER 2021-12-16 19:51 | Emergency (ER) | payer MEDICARE ==
[2021-12-16 21:48] VITALS: BP 146/55; PULSE 80
[2021-12-16] MEDS ORDERED: Clindamycin HCl 150 MG Cap PO ONE ×2 (23:23→23:25)
== END 2021-12-16 23:44 | disposition home or self-care (01) ==
LOC: JP.ED 19:51
DX: L03.116 Cellulitis of left lower limb (principal); E78.00 Pure hypercholesterolemia, unspecified; J44.9 Chronic obstructive pulmonary disease, unspecified; I12.9 Hypertensive chronic kidney disease with stage 1 through stage 4 chronic kidney disease, or unspecified chronic kidney disease; E11.22 Type 2 diabetes mellitus with diabetic chronic kidney disease; I12.0 Hypertensive chronic kidney disease with stage 5 chronic kidney disease or end stage renal disease; N18.5 Chronic kidney disease, stage 5; E66.9 Obesity, unspecified; Z88.5 Allergy status to narcotic agent; Z88.8 Allergy status to other drugs, medicaments and biological substances; Z91.041 Radiographic dye allergy status; Z79.82 Long term (current) use of aspirin; Z79.899 Other long term (current) drug therapy; Z79.84 Long term (current) use of oral hypoglycemic drugs
CPT/HCPCS: 36415; 80048; 85025; 86140; 93971; 99284; A9270; 99282

== ENCOUNTER 2021-12-21 12:53 | Emergency (ER) | payer MEDICARE ==
[2021-12-21] MEDS ORDERED: Prochlorperazine 10 MG in Sodium Chloride 0.9% 50 ML IV ONE (13:58)
[2021-12-21] MEDS ORDERED: fentaNYL 50 MCG/ML SDV IVPUSH ONE (14:00)
[2021-12-21 14:02] LABS: TROPONIN I HIGH SENSITIVITY 9.5 pg/mL (<=60.3)
[2021-12-21 14:06] VITALS: BP 129/51; PULSE 71
== END 2021-12-21 15:30 | disposition home or self-care (01) ==
LOC: JP.ED 12:53
DX: R00.2 Palpitations (principal); F41.9 Anxiety disorder, unspecified; J44.9 Chronic obstructive pulmonary disease, unspecified; K21.9 Gastro-esophageal reflux disease without esophagitis; E11.22 Type 2 diabetes mellitus with diabetic chronic kidney disease; I12.9 Hypertensive chronic kidney disease with stage 1 through stage 4 chronic kidney disease, or unspecified chronic kidney disease; N18.31 Chronic kidney disease, stage 3a; D63.1 Anemia in chronic kidney disease; E78.00 Pure hypercholesterolemia, unspecified; E66.9 Obesity, unspecified; Z91.041 Radiographic dye allergy status; Z88.8 Allergy status to other drugs, medicaments and biological substances; Z79.82 Long term (current) use of aspirin; Z79.84 Long term (current) use of oral hypoglycemic drugs; Z79.899 Other long term (current) drug therapy; Z68.34 Body mass index [BMI] 34.0-34.9, adult
CPT/HCPCS: 36415; 80048; 83735; 84443; 84484; 85025; 93010; 99283; 99285-25

== ENCOUNTER 2021-12-25 22:42 | Emergency (ER) | payer MEDICARE ==
[2021-12-25 22:49] VITALS: BP 169/66; PULSE 85
[2021-12-26 00:03] LABS: TROPONIN I HIGH SENSITIVITY 9.7 pg/mL (<=60.3)
[2021-12-26] MEDS ORDERED: Calcium Carbonate 500 MG Tab.Chew PO ONE (00:27)
[2021-12-26] MEDS ORDERED: Aluminum Hydroxide/Magnesium Hydroxide/Simethicone Susp 30 ML Cup PO ONE (00:29)
== END 2021-12-26 00:54 | disposition home or self-care (01) ==
LOC: JP.ED 22:42
DX: R55 Syncope and collapse (principal); F41.9 Anxiety disorder, unspecified; D64.9 Anemia, unspecified; R12 Heartburn; I10 Essential (primary) hypertension; E78.00 Pure hypercholesterolemia, unspecified; J44.9 Chronic obstructive pulmonary disease, unspecified; K21.9 Gastro-esophageal reflux disease without esophagitis; E11.9 Type 2 diabetes mellitus without complications; E66.9 Obesity, unspecified; Z88.5 Allergy status to narcotic agent; Z91.041 Radiographic dye allergy status; Z88.4 Allergy status to anesthetic agent; Z79.82 Long term (current) use of aspirin; Z79.84 Long term (current) use of oral hypoglycemic drugs; Z79.899 Other long term (current) drug therapy; Z68.33 Body mass index [BMI] 33.0-33.9, adult
CPT/HCPCS: 36415; 71045; 80048; 81001; 83735; 84484; 85025; 93005; 93010; 99283; 99285; A9270

== ENCOUNTER 2022-05-25 06:54 | Day surgery (SDC) | payer MEDICARE ==
[2022-05-25] MEDS ORDERED: fentaNYL 100 MCG/2 ML SDV ONE (07:11)
[2022-05-25] MEDS ORDERED: Midazolam 1 MG/ML 2 ML SDV ONE (07:11)
[2022-05-25] MEDS ORDERED: Propofol 200 MG/20 ML SDV ONE ×2 (07:11→08:44)
[2022-05-25] MEDS ORDERED: Dextrose 5%-Lactated Ringers 1,000 ML IV SCH (07:30)
[2022-05-25] MEDS: Lidocaine 1% with EPINEPHrine 1:100,000 50 ML MDV ONE ×2 (07:44→08:48)
[2022-05-25] MEDS ORDERED: ceFAZolin 1 GM in Premix Bag 1 BAG IV ONE (08:00)
[2022-05-25 10:34] VITALS: BP 123/50; PULSE 70
== END 2022-05-25 11:17 | disposition home or self-care (01) ==
LOC: JP.SDS 06:54
PROVIDERS: ATTEND Surgery
DX: R51.9 Headache, unspecified (principal); E78.5 Hyperlipidemia, unspecified; J44.9 Chronic obstructive pulmonary disease, unspecified; E11.22 Type 2 diabetes mellitus with diabetic chronic kidney disease; I12.9 Hypertensive chronic kidney disease with stage 1 through stage 4 chronic kidney disease, or unspecified chronic kidney disease; N18.30 Chronic kidney disease, stage 3 unspecified; Z91.041 Radiographic dye allergy status; Z88.6 Allergy status to analgesic agent; Z88.5 Allergy status to narcotic agent; Z79.899 Other long term (current) drug therapy
CPT/HCPCS: 37609; 74176; 88305; 88313; J0690; J2704; J3010; J7121; J2250

== ENCOUNTER 2022-11-08 23:04 | Emergency (ER) | payer MEDICARE ==
[2022-11-08] MEDS ORDERED: Sodium Chloride 0.9% 10 ML Syringe FLUSH PRN (23:06)
[2022-11-08 23:13] VITALS: BP 158/47; PULSE 86
[2022-11-08 23:17] LABS: BASOPHILS ABSOLUTE AUTO 0.14 K/uL (0.00-0.10); BASOPHILS PERCENT AUTO 1.6 % (0.1-1.3); EOSINOPHILS ABSOLUTE AUTO 0.46 K/uL (0.00-0.40); EOSINOPHILS PERCENT AUTO 5.4 % (0.0-5.4); HEMATOCRIT 33.4 % (34.3-46.0); HEMOGLOBIN 10.8 g/dL (11.2-15.5); IMMATURE GRAN ABSOLUTE AUTO 0.03 K/uL (0.00-0.23); IMMATURE GRAN PERCENT AUTO 0.3 % (0.0-0.7); LYMPHOCYTES ABSOLUTE AUTO 1.69 K/uL (0.8-3.3); LYMPHOCYTES PERCENT AUTO 19.7 % (11.4-47.7); MEAN CORPUSCULAR HEMOGLOBIN 30.4 pg (31.6-35.5); MEAN CORPUSCULAR HGB CONC 32.3 g/dL (31.6-35.5); MEAN CORPUSCULAR VOLUME 94.1 fL (81.4-99.0); MONOCYTES ABSOLUTE AUTO 1.21 K/uL (0.20-0.90); MONOCYTES PERCENT AUTO 14.1 % (3.3-12.6); NEUTROPHILS ABSOLUTE AUTO 5.06 K/uL (1.0-7.6); NEUTROPHILS PERCENT AUTO 58.9 % (40.0-78.1); PLATELET COUNT,PLT 331 K/uL (130-375); RED BLOOD CELL COUNT 3.55 M/uL (3.77-5.24); WHITE BLOOD CELL COUNT,WBC 8.6 K/uL (3.2-11.0)
[2022-11-08 23:40] LABS: A/G RATIO 0.6 (1.2-2.2); ALANINE AMINOTRANSFERASE,ALT 22 U/L (12-78); ALKALINE PHOSPHATASE 134 U/L (46-116); ASPARTATE AMNIOTRANSFERASE,AST 28 U/L (15-37); BILIRUBIN TOTAL 0.2 mg/dL (0.2-1.0); BLOOD UREA NITROGEN,BUN 18 mg/dL (7-18); C-REACTIVE PROTEIN 1.38 mg/dL (0.0-0.3); CALCIUM 8.3 mg/dL (8.5-10.1); CARBON DIOXIDE,CO2 28 mmol/L (21-32); CHLORIDE,CL 97 mmol/L (100-108); CREATININE 1.2 mg/dL (0.6-1.0); EST CRCL DRUG DOSING (CG) 30.44 mL/min; ESTIMATED GFR 48 mL/min (>60); GLUCOSE RANDOM 196 mg/dL (74-106); POTASSIUM,K 4.5 mmol/L (3.6-5.2); PROTEIN TOTAL,TP 7.7 g/dL (6.4-8.2); SODIUM,NA 135 mmol/L (140-148)
[2022-11-08 23:43] LABS: ANION GAP 14.5 mmol/L (5.0-14.0)
== END 2022-11-09 01:52 | disposition home or self-care (01) ==
LOC: JP.ED 23:04
DX: L03.116 Cellulitis of left lower limb (principal); I87.2 Venous insufficiency (chronic) (peripheral); R60.0 Localized edema; M25.572 Pain in left ankle and joints of left foot; G89.29 Other chronic pain; I48.91 Unspecified atrial fibrillation; E78.00 Pure hypercholesterolemia, unspecified; I12.9 Hypertensive chronic kidney disease with stage 1 through stage 4 chronic kidney disease, or unspecified chronic kidney disease; E11.22 Type 2 diabetes mellitus with diabetic chronic kidney disease; N18.30 Chronic kidney disease, stage 3 unspecified; E66.9 Obesity, unspecified; Z88.5 Allergy status to narcotic agent; Z91.041 Radiographic dye allergy status; Z88.8 Allergy status to other drugs, medicaments and biological substances; Z79.82 Long term (current) use of aspirin; Z79.899 Other long term (current) drug therapy; Z68.33 Body mass index [BMI] 33.0-33.9, adult
CPT/HCPCS: 36415; 80053; 85025; 85379; 86140; 87040; 93971; 99284; J3490

== ENCOUNTER 2024-11-09 14:21 | Emergency (ER) | payer MEDICARE ==
[2024-11-09 22:01] VITALS: BP 152/59; PULSE 82
[2024-11-09] MEDS ORDERED: Sodium Chloride 0.9% 10 ML Syringe FLUSH PRN (22:17)
== END 2024-11-09 22:52 ==
LOC: JP.ED 14:21
DX: K22.9 Disease of esophagus, unspecified (principal); E78.00 Pure hypercholesterolemia, unspecified; J44.89 Other specified chronic obstructive pulmonary disease; I12.9 Hypertensive chronic kidney disease with stage 1 through stage 4 chronic kidney disease, or unspecified chronic kidney disease; N18.9 Chronic kidney disease, unspecified; E11.22 Type 2 diabetes mellitus with diabetic chronic kidney disease; E66.9 Obesity, unspecified; Z79.899 Other long term (current) drug therapy; Z79.84 Long term (current) use of oral hypoglycemic drugs; Z79.82 Long term (current) use of aspirin; Z88.2 Allergy status to sulfonamides; Z88.5 Allergy status to narcotic agent; Z88.8 Allergy status to other drugs, medicaments and biological substances; Z91.048 Other nonmedicinal substance allergy status
CPT/HCPCS: 70490; 71046; 71046-26; 71250; 82947; 99284; 99285

== ENCOUNTER 2025-04-30 18:17 | Inpatient (IN) | payer MEDICAID, MEDICARE ==
[2025-04-30 19:17] LABS: BASOPHILS ABSOLUTE AUTO 0.08 K/uL (0.00-0.10); BASOPHILS PERCENT AUTO 0.6 % (0.1-1.3); EOSINOPHILS ABSOLUTE AUTO 1.01 K/uL (0.00-0.40); EOSINOPHILS PERCENT AUTO 7.3 % (0.0-5.4); IMMATURE GRAN ABSOLUTE AUTO 0.09 K/uL (0.00-0.23); IMMATURE GRAN PERCENT AUTO 0.6 % (0.0-0.7); LYMPHOCYTES ABSOLUTE AUTO 0.62 K/uL (0.8-3.3); LYMPHOCYTES PERCENT AUTO 4.5 % (11.4-47.7); MONOCYTES ABSOLUTE AUTO 1.69 K/uL (0.20-0.90); MONOCYTES PERCENT AUTO 12.2 % (3.3-12.6); NEUTROPHILS ABSOLUTE AUTO 10.38 K/uL (1.0-7.6); NEUTROPHILS PERCENT AUTO 74.8 % (40.0-78.1); PLATELET COUNT,PLT 507 K/uL (130-375); RED BLOOD CELL COUNT 2.99 M/uL (3.77-5.24); WHITE BLOOD CELL COUNT,WBC 13.9 K/uL (3.2-11.0)
[2025-04-30 19:47] LABS: BASE EXCESS ARTERIAL 3.1 mm/L; BICARBONATE,ARTERIAL 26.3 mmol/L (22.0-26.0); O2 SATURATION ARTERIAL 93.3 % (95.0-98.0); OXYHEMOGLOBIN 91.0 %; PCO2 ARTERIAL 36.2 mmHg (35.0-42.0); PO2 ARTERIAL 65.4 mmHg (75.0-100.0); TOTAL HEMOGLOBIN 9.7 g/dL (12.0-16.0)
[2025-04-30] MEDS: Albuterol 0.083% 2.5 MG/3 ML Neb Soln NEB ONE (19:47)
[2025-04-30 19:54] LABS: CORONAVIRUS COVID-19 NAA NEGATIVE (NEGATIVE); INFLUENZA A NAA NEGATIVE (NEGATIVE); INFLUENZA B NAA NEGATIVE (NEGATIVE); RESPIRATORY SYNCYTIAL VIR NAA NEGATIVE (NEGATIVE)
[2025-04-30 20:26] LABS: A/G RATIO 0.4 (1.2-2.2); ALANINE AMINOTRANSFERASE,ALT 27 U/L (12-78); ASPARTATE AMNIOTRANSFERASE,AST 34 U/L (15-37); BILIRUBIN TOTAL 0.3 mg/dL (0.2-1.0); BLOOD UREA NITROGEN,BUN 26 mg/dL (7-18); CARBON DIOXIDE,CO2 29 mmol/L (21-32); CHLORIDE,CL 97 mmol/L (100-108); CREATININE 0.9 mg/dL (0.6-1.0); EST CRCL DRUG DOSING (CG) 39.39 mL/min; ESTIMATED GFR 67 mL/min (>60); GLUCOSE RANDOM 143 mg/dL (74-106); POTASSIUM,K 4.1 mmol/L (3.6-5.2); PROTEIN TOTAL,TP 7.8 g/dL (6.4-8.2); SODIUM,NA 137 mmol/L (140-148)
[2025-04-30] MEDS: methylPREDNISolone Sodium Succinate 125 MG/2 ML SDV IVPUSH ONE (20:29)
[2025-04-30] MEDS: Codeine/guaiFENesin 10-100 MG/5 ML Syrup 5 ML Cup PO ONE (20:29)
[2025-04-30] MEDS ORDERED: Ondansetron 4 MG Tab.DIS PO PRN (21:44)
[2025-04-30] MEDS ORDERED: Triamcinolone Acetonide 0.1% Crm 15 GM Tube TOP PRN (21:44)
[2025-04-30] MEDS: buPROPion 150 MG Tab.SR PO SCH (22:34)
[2025-04-30] MEDS: Acetaminophen Soln 650 MG/20.3 ML UD Cup PO PRN (22:40)
[2025-04-30] MEDS: BUPROPION HCL 150 MG PO SCH (23:01)
[2025-04-30 23:39] LABS: LACTIC ACID 1.3 mmol/L (0.4-2.0)
[2025-05-01] MEDS: methylPREDNISolone Sodium Succinate 40 MG/1 ML SDV IVPUSH SCH (02:21)
[2025-05-01 06:13] LABS: BASOPHILS ABSOLUTE AUTO 0.03 K/uL (0.00-0.10); BASOPHILS PERCENT AUTO 0.3 % (0.1-1.3); EOSINOPHILS PERCENT AUTO 0.1 % (0.0-5.4); IMMATURE GRAN ABSOLUTE AUTO 0.06 K/uL (0.00-0.23); IMMATURE GRAN PERCENT AUTO 0.6 % (0.0-0.7); LYMPHOCYTES ABSOLUTE AUTO 0.30 K/uL (0.8-3.3); LYMPHOCYTES PERCENT AUTO 3.1 % (11.4-47.7); MONOCYTES ABSOLUTE AUTO 0.17 K/uL (0.20-0.90); MONOCYTES PERCENT AUTO 1.8 % (3.3-12.6); NEUTROPHILS ABSOLUTE AUTO 8.98 K/uL (1.0-7.6); NEUTROPHILS PERCENT AUTO 94.1 % (40.0-78.1); PLATELET COUNT,PLT 442 K/uL (130-375); RED BLOOD CELL COUNT 2.67 M/uL (3.77-5.24); WHITE BLOOD CELL COUNT,WBC 9.6 K/uL (3.2-11.0)
[2025-05-01 06:14] LABS: EOSINOPHILS ABSOLUTE AUTO 0.01 K/uL (0.00-0.40)
[2025-05-01 06:26] LABS: BLOOD UREA NITROGEN,BUN 20.0 mg/dL (7-18); CARBON DIOXIDE,CO2 28.0 mmol/L (21-32); CHLORIDE,CL 105.0 mmol/L (100-108); CREATININE 0.7 mg/dL (0.6-1.0); EST CRCL DRUG DOSING (CG) 50.65 mL/min; ESTIMATED GFR 91.0 mL/min (>60); GLUCOSE RANDOM 204.0 mg/dL (74-106); POTASSIUM,K 3.4 mmol/L (3.6-5.2); SODIUM,NA 141.0 mmol/L (140-148)
[2025-05-01 06:50] LABS: APPEARANCE,URINE CLEAR (CLEAR); GLUCOSE,URINE NEGATIVE (NEGATIVE); OCCULT BLOOD,URINE NEGATIVE (NEGATIVE)
[2025-05-01 06:56] LABS: SQUAMOUS EPITHELIAL CELLS,UR FEW /HPF
[2025-05-01] MEDS: Potassium Chloride 20 MEQ Tab.ER PO ONE (08:45)
[2025-05-01] MEDS: FLU (Fluad Triv) 25-26 (65UP)/MF59C/PF 45 MCG/0.5 ML Syringe IM ONE (10:21)
[2025-05-01] MEDS: Insulin Lispro 100 Unit/ML 3 ML KwikPen SUBCUT SCH (17:13)
[2025-05-02] MEDS: Albuterol 0.083% 2.5 MG/3 ML Neb Soln NEB PRN (01:39)
[2025-05-02] MEDS: Furosemide 20 MG/2 ML VIAL IVPUSH STA (02:56)
[2025-05-02 05:52] LABS: PLATELET COUNT,PLT 461.0 K/uL (130-375); RED BLOOD CELL COUNT 2.69 M/uL (3.77-5.24); WHITE BLOOD CELL COUNT,WBC 23.8 K/uL (3.2-11.0)
[2025-05-02 06:08] LABS: BLOOD UREA NITROGEN,BUN 21.0 mg/dL (7-18); CARBON DIOXIDE,CO2 28.0 mmol/L (21-32); CHLORIDE,CL 106.0 mmol/L (100-108); CREATININE 0.8 mg/dL (0.6-1.0); EST CRCL DRUG DOSING (CG) 44.31 mL/min; ESTIMATED GFR 77.0 mL/min (>60); GLUCOSE RANDOM 165.0 mg/dL (74-106); POTASSIUM,K 3.5 mmol/L (3.6-5.2); SODIUM,NA 143.0 mmol/L (140-148)
[2025-05-02] MEDS: Potassium Chloride 20 MEQ Tab.ER PO ONE (08:37)
[2025-05-02] MEDS: Levofloxacin/Dextrose 5%-Water 750 MG in Premix Bag 1 BAG IV SCH (09:06)
[2025-05-02] MEDS: Sennosides/Docusate Sodium 50-8.6 MG Tab PO SCH (09:22)
[2025-05-02] MEDS ORDERED: Saliva Substitute Oral Spray 120 ML Bottle MUCMEM PRN (09:55)
[2025-05-03 04:08] LABS: BASE EXCESS ARTERIAL 3.4 mm/L; BICARBONATE,ARTERIAL 26.2 mmol/L (22.0-26.0); O2 SATURATION ARTERIAL 83.7 % (95.0-98.0); OXYHEMOGLOBIN 81.0 %; PCO2 ARTERIAL 34.2 mmHg (35.0-42.0); PO2 ARTERIAL 49.5 mmHg (75.0-100.0); TOTAL HEMOGLOBIN 9.2 g/dL (12.0-16.0)
[2025-05-03 04:11] LABS: PLATELET COUNT,PLT 465.0 K/uL (130-375); RED BLOOD CELL COUNT 2.82 M/uL (3.77-5.24); WHITE BLOOD CELL COUNT,WBC 16.7 K/uL (3.2-11.0)
[2025-05-03 04:33] LABS: BLOOD UREA NITROGEN,BUN 20.0 mg/dL (7-18); CARBON DIOXIDE,CO2 29.0 mmol/L (21-32); CHLORIDE,CL 103.0 mmol/L (100-108); CREATININE 0.8 mg/dL (0.6-1.0); EST CRCL DRUG DOSING (CG) 44.31 mL/min; ESTIMATED GFR 77.0 mL/min (>60); GLUCOSE RANDOM 127.0 mg/dL (74-106); POTASSIUM,K 4.0 mmol/L (3.6-5.2); SODIUM,NA 140.0 mmol/L (140-148)
[2025-05-03] MEDS: Magnesium Sulfate 2 GM/50 mL 2 GM in Premix Bag 1 BAG IV SCH (10:23)
[2025-05-04 05:51] LABS: PLATELET COUNT,PLT 417.0 K/uL (130-375); RED BLOOD CELL COUNT 2.76 M/uL (3.77-5.24); WHITE BLOOD CELL COUNT,WBC 18.5 K/uL (3.2-11.0)
[2025-05-04 06:07] LABS: BLOOD UREA NITROGEN,BUN 20.0 mg/dL (7-18); CARBON DIOXIDE,CO2 30.0 mmol/L (21-32); CHLORIDE,CL 102.0 mmol/L (100-108); CREATININE 0.8 mg/dL (0.6-1.0); EST CRCL DRUG DOSING (CG) 44.31 mL/min; ESTIMATED GFR 77.0 mL/min (>60); GLUCOSE RANDOM 182.0 mg/dL (74-106); POTASSIUM,K 3.8 mmol/L (3.6-5.2); SODIUM,NA 138.0 mmol/L (140-148)
[2025-05-04] MEDS: Furosemide 20 MG/2 ML VIAL IVPUSH ONE (09:32)
[2025-05-04] MEDS: Fluconazole/Normal Saline 200 MG in Premix Bag 1 BAG IV SCH (10:58)
[2025-05-05] MEDS: LORazepam ORAL Concentrate 1MG/0.5ML U/D BUCCAL PRN (10:00)
[2025-05-05] MEDS: Mometasone Furoate Nasal Spray 17 GM Canister NASBOTH SCH (13:16)
[2025-05-05 17:52] VITALS: BP 77/40; PULSE 88
== END 2025-05-05 20:05 | disposition expired | DRG 177 ==
LOC: JP.ED 18:17 → JP.MS 20:38
PROVIDERS: ADMIT Internal Medicine; ATTEND Hospitalist
PROC: 5A0935A Assistance with Respiratory Ventilation, Less than 24 Consecutive Hours, High Flow/Velocity Cannula (ICD-10-PCS; principal; 2025-04-30)
PROC: 3E02340 Introduction of Influenza Vaccine into Muscle, Percutaneous Approach (ICD-10-PCS; principal; 2025-04-30)
PROC: 3E03329 Introduction of Other Anti-infective into Peripheral Vein, Percutaneous Approach (ICD-10-PCS; principal; 2025-04-30)
PROC: 4A133R1 Monitoring of Arterial Saturation, Peripheral, Percutaneous Approach (ICD-10-PCS; principal; 2025-04-30)
DX: J69.0 Pneumonitis due to inhalation of food and vomit (principal); J96.01 Acute respiratory failure with hypoxia; F02.A4 Dementia in other diseases classified elsewhere, mild, with anxiety; R79.89 Other specified abnormal findings of blood chemistry; I10 Essential (primary) hypertension; J44.0 Chronic obstructive pulmonary disease with (acute) lower respiratory infection; E11.9 Type 2 diabetes mellitus without complications; C15.8 Malignant neoplasm of overlapping sites of esophagus; Z91.041 Radiographic dye allergy status; Z51.5 Encounter for palliative care; Z66 Do not resuscitate; Z68.28 Body mass index [BMI] 28.0-28.9, adult; J18.9 Pneumonia, unspecified organism; G30.0 Alzheimer's disease with early onset; H91.90 Unspecified hearing loss, unspecified ear; H54.7 Unspecified visual loss; I48.91 Unspecified atrial fibrillation; E78.00 Pure hypercholesterolemia, unspecified; K59.00 Constipation, unspecified; K21.9 Gastro-esophageal reflux disease without esophagitis; I12.9 Hypertensive chronic kidney disease with stage 1 through stage 4 chronic kidney disease, or unspecified chronic kidney disease; N18.9 Chronic kidney disease, unspecified; M19.90 Unspecified osteoarthritis, unspecified site; M54.2 Cervicalgia; G89.29 Other chronic pain; E11.22 Type 2 diabetes mellitus with diabetic chronic kidney disease; E66.9 Obesity, unspecified; E86.0 Dehydration; E55.9 Vitamin D deficiency, unspecified; D64.9 Anemia, unspecified; Z98.890 Other specified postprocedural states; Z88.8 Allergy status to other drugs, medicaments and biological substances; Z79.82 Long term (current) use of aspirin; Z79.899 Other long term (current) drug therapy; Z68.27 Body mass index [BMI] 27.0-27.9, adult; Z79.84 Long term (current) use of oral hypoglycemic drugs; Z98.49 Cataract extraction status, unspecified eye; Z98.891 History of uterine scar from previous surgery
CPT/HCPCS: 36415; 36600; 71045 ×2; 80053; 81001; 82150; 82803; 83605; 85025; 85379; 86140; 87040 ×2; 87637; 94640; 96361; 96374; 96375; 99285 ×2; A9270 ×3; J0696; J7030; 80048; 80202; 82947; 83735; 85027; 87070; 87077; 87205; 90653; 94660; 94667; 99223; 99233; 99238; G0008; J1271; J1450; J1650; J1938; J1956; J2185; J2919; J3373; J3475; J7050; J7512